=== PATIENT | male | born 1935 | race Caucasian/White ===

== ENCOUNTER → 2019-07-30 | Outpatient (CLI) | payer OTHER ==
--- NOTE | 2019-08-03 08:47 | SLEEPCENT ---
DATE OF STUDY: 07/30/2019 ORDERING PROVIDER: LIV Mattson Nocturnal polysomnography was performed for evaluation of sleep physiology in this patient with a history of excessive somnolence and nonrestorative sleep. 6 hours and 40 minutes of data were reviewed. There were 264.5 minutes of sleep identified. Sleep latency was short at 10 minutes. Rapid eye movement (REM) latency was prolonged at 205 minutes. Sleep architecture improved later in the study with application of pressure therapy. Overall sleep efficiency was 57.7%. The patient's electrocardiogram showed sinus rhythm with respiratory variability. Average heart rate 65 beats per minute. Rate ranged 40-80. Electroencephalogram (EEG) showed some mild coarsening in background. Otherwise, normal waveforms for awake and sleep. There were 191 respiratory events identified of 10 seconds in duration or greater for an apnea-hypopnea index of 43.4. Having clearly established the presence of obstructive sleep apnea syndrome early in the testing, the study was stopped shortly after 1:00 a.m. for the application of pressure therapy. The patient was fit with a Kurtosys Simplus full-face mask of medium size. 4 cm of water pressure were applied to the circuit, and the lights were again extinguished. Throughout the remaining hours of testing, pressure titration was performed. Best sleep was seen on a continuous positive airway pressure (CPAP) pressure of 11; however, hypopneic events and oxygen desaturations persisted, and an optimal pressure was not able to be identified during this study. IMPRESSION: Obstructive sleep apnea syndrome (G47.33). Apnea-hypopnea index 43.3. RECOMMENDATION: The patient should be encouraged to return to the sleep disorder center for pressure therapy. Attempts to titrate pressure therapy during this study were insufficient to identify an optimal pressure. In the interim, alcohol and sedative avoidance should be practiced and caution exercised during the operation of motor vehicles.
== END ==
LOC: M SLEEP 20:00
PROVIDERS: ATTEND Nurse Practitioner Family
DX: R06.83 Snoring (principal)

== ENCOUNTER → 2019-09-05 | Outpatient (CLI) | payer OTHER ==
--- NOTE | 2019-09-13 10:49 | SLEEPCENT ---
DATE OF STUDY: 09/05/2019 ORDERED: Khushbu Boston Nocturnal polysomnography was performed for a full night of pressure titration in this patient with severe obstructive sleep apnea syndrome. For testing, a Swoop Simplus full-face mask of medium size was used and 5 cm of water pressure was initially applied to the circuit and the lights were extinguished. 7 hours and 42 minutes of data were reviewed. There were 328 minutes of sleep identified. Sleep latency was prolonged at 20 minutes. REM latency was prolonged at 162 minutes. Sleep architecture improved in the second portion of the study. There were 3 REM cycles noted. Overall sleep efficiency was 71.9%. The patient's electrocardiogram showed a sinus rhythm with an average heart rate of 54 beats per minute. Electroencephalogram (EEG) showed reasonably normal waveforms for awake and sleep. Respiratory events were seen late in the study in REM complicating titration. Nonetheless, the patient tolerated C-PAP throughout the study. Best sleep was seen on C-PAP pressure of 13 cm. IMPRESSION: Obstructive sleep apnea syndrome (G47.33). RECOMMENDATION: Nightly use of pressure therapy at 13 cm of water.
== END ==
LOC: M SLEEP 20:00
PROVIDERS: ATTEND Nurse Practitioner Family
DX: G47.33 Obstructive sleep apnea (adult) (pediatric) (principal)

== ENCOUNTER 2020-06-19 08:33 | Inpatient (IN) | payer OTHER, MEDICARE ==
[~2020-06-19] VITALS: Ht 177.8 cm; Wt 130.9 kg
--- NOTE | 2020-06-19 08:48 | ED PDOC ---
Post-Departure Follow-Up [facility]IO Accessed. Patient informed Edenilson Garrido M.D. Jun 19, 2020 08:48
[2020-06-19] MEDS ORDERED: lisinopriL 40 MG TAB PO SCH (09:00)
[2020-06-19] MEDS ORDERED: ASCO500T PO (09:13)
[2020-06-19] MEDS ORDERED: ECOT81TA5 PO (09:13)
[2020-06-19] MEDS ORDERED: FURO40TA2 PO (09:13)
[2020-06-19] MEDS ORDERED: ATOR40TA75 PO (09:13)
[2020-06-19] MEDS ORDERED: AMLO1TAB24 PO (09:13)
[2020-06-19] MEDS ORDERED: LISI40TA4 PO ×2 (09:13→11:51)
[2020-06-19] MEDS ORDERED: METF-877 PO (09:13)
[2020-06-19] MEDS ORDERED: METO200T28 PO ×2 (09:13→11:51)
[2020-06-19] MEDS ORDERED: GLIP5TAB20 PO (09:13)
[2020-06-19] MEDS ORDERED: D3 +TAB PO (09:16)
[2020-06-19] MEDS ORDERED: CALC600T85 PO (09:16)
[2020-06-19] MEDS ORDERED: CINN500C15 PO (09:19)
[2020-06-19] MEDS ORDERED: amLODIPine 5 MG TAB PO ONE (09:30)
[2020-06-19] MEDS ORDERED: FUROSEMIDE 40 MG TAB PO ONE (09:35)
[2020-06-19] MEDS ORDERED: METOPROLOL SUCC (TopROL XL) 100MG *XL* TAB PO ONE (09:35)
--- NOTE | 2020-06-19 09:37 | REP ---
INDICATION: DYSPNEA/COUGH COMPARISON: None. TECHNIQUE: Portable AP view of the chest FINDINGS: Diffuse bilateral airspace disease including possible forming area of consolidation in the left mid lung zone. No obvious effusion. No definite pneumothorax. Cardiomegaly noted. IMPRESSION: Moderate to significant bilateral airspace disease consistent with multifocal pneumonia. <Electronically signed by Dex Benitez > 06/19/20 [id number]
[2020-06-19 09:40] LABS: BASO % 0.2 % (0.0-1.0); EOS % 0.1 % (0.0-3.0); HEMATOCRIT 35.1 % (42.0-52.0); HEMOGLOBIN 10.8 g/dl (13.5-17.5); LYMPH # 0.4 10^3/uL (1.5-5.0); LYMPH % 3.4 % (24.0-44.0); MEAN CORPUSCULAR HEMOGLOBIN 27.6 pg (27.0-33.0); MEAN CORPUSCULAR HGB CONC 30.8 g/dl (32.0-36.5); MEAN CORPUSCULAR VOLUME 89.5 fl (80.0-96.0); MONO # 0.7 10^3/uL (0.0-0.8); MONO % 6.1 % (2.0-8.0); NEUTROPHILS # 10.9 10^3/uL (1.5-8.5); NEUTROPHILS % 89.5 % (36.0-66.0); PLATELET COUNT, AUTOMATED 163 10^3/uL (150-450); RED BLOOD COUNT 3.92 10^6/uL (4.30-6.10); WHITE BLOOD COUNT 12.2 10^3/uL (4.0-10.0)
[2020-06-19] MEDS ORDERED: FUROSEMIDE 40MG/4ML VIAL (J1940) IV ONE (09:40)
[2020-06-19 10:07] LABS: CALCIUM LEVEL 8.5 MG/DL (8.8-10.2); CREATININE FOR GFR 2.49 MG/DL (0.70-1.30); GLOMERULAR FILTRATION RATE 26.6 (>35); POTASSIUM SERUM 5.4 MEQ/L (3.5-5.1)
--- NOTE | 2020-06-19 10:51 | REP ---
INDICATION: CHF vs multifocal pn COMPARISON: None TECHNIQUE: Axial noncontrast images from the thoracic inlet to the upper abdomen with coronal and sagittal reformations. This CT examination was performed using the following dose reduction techniques: Automated exposure control, adjustment of mA and/or kv according to the patient's size, and use of iterative reconstruction technique. FINDINGS: Moderate to significant bilateral multifocal infiltrates along with suspected reactive adenopathy and small bilateral pleural effusions. Findings most compatible with multifocal pneumonia. Atherosclerotic changes to the thoracic aorta and coronary arteries noted without aortic aneurysm. Cardiac silhouette is upper limits of normal. Skeletal structures are intact. IMPRESSION: Findings compatible with multifocal pneumonia including reactive adenopathy and small pleural effusions. <Electronically signed by Dex Benitez > 06/19/20 [id number]
[2020-06-19] MEDS ORDERED: cefTRIAXone SOD 2 GM in D5W MINI-BAG PLUS 50 ML IV ONE (11:15)
[2020-06-19] MEDS ORDERED: AZITHROMYCIN INJ 500 MG, VIAL MATE ADAPTER 1 EACH in NS 250 ML IV ONE (11:15)
[2020-06-19] MEDS ORDERED: CALC600T86 PO (11:51)
[2020-06-19] MEDS ORDERED: KETO2CR TOP (11:51)
[2020-06-19] MEDS ORDERED: D-40TAB2 PO (11:51)
[2020-06-19] MEDS ORDERED: VITMTA PO (11:51)
[2020-06-19] MEDS ORDERED: ASCO250T20 PO (11:51)
[2020-06-19] MEDS ORDERED: AMLO1TAB25 PO (11:51)
[2020-06-19] MEDS ORDERED: GLIP5TAB8 PO (11:51)
[2020-06-19] MEDS ORDERED: VITA500T41 PO (11:51)
[2020-06-19] MEDS ORDERED: CO-E200C PO (11:51)
[2020-06-19] MEDS ORDERED: FURO20TA2 PO ×2 (11:51)
[2020-06-19] MEDS ORDERED: ASPI81TA26 PO (11:51)
[2020-06-19] MEDS ORDERED: METF10004 PO (11:51)
[2020-06-19] MEDS ORDERED: VITATAB73 PO (11:51)
[2020-06-19] MEDS ORDERED: FISH1000 PO (11:51)
[2020-06-19] MEDS ORDERED: FERR1TAB8 PO (11:51)
[2020-06-19] MEDS ORDERED: SPIR-10 PO (11:51)
[2020-06-19] MEDS ORDERED: CINN500C2 PO (11:51)
[2020-06-19] MEDS ORDERED: ATOR80TA59 PO (11:51)
[2020-06-19] MEDS ORDERED: ACETAMINOPHEN TAB 650MG DOSE (2X325MG) PO PRN (12:40)
[2020-06-19] MEDS ORDERED: ALBUTEROL 90 MCG/ACT 8GM HFA INHALER INH PRN (12:40)
[2020-06-19] MEDS ORDERED: DEXTROSE 50% 50 ML SYRINGE IV PRN (13:00)
[2020-06-19] MEDS ORDERED: GLUCOSE 4GM CHEW TABLET PO PRN (13:00)
[2020-06-19] MEDS ORDERED: GLUCAGON INJ 1MG VIAL SC PRN (13:00)
[2020-06-19 13:33] VITALS: BP 102/87
--- NOTE | 2020-06-19 13:50 | HPEPDOC ---
General Date of Admission Jun 19, 2020 at 12:38 Date of Service: Jun 19, 2020 Chief Complaint The patient is a 84-year-old male admitted with a reason for visit of Acute Exacerbation Of Chf. Source: Patient Exam Limitations: No limitations Timing/Duration: Day(s) Severity: Moderate History of Present Illness Patient is 84 years old male with past medical history of morbid obesity, sleep apnea, hypertension, hyperlipidemia, MT with 1 stent placement around 10 years ago, coronary artery diseases, diabetes type 2 presented to the hospital with deconditioning and shortness of breath. Patient stated that in the morning he sliding down from his recliner and was not able to stand up. He called EMS, when EMS arrived patient was found to have oxygen saturation of 70s. Also patient stated that he has been having increased shortness of breath for past few weeks associated with decreased mobility and generalized weakness. He stated that minimal physical activity gives him shortness of breath and most of the day he needs to stay on the recliner. Patient complains of orthopnea, leg swelling and dyspnea. Also he noticed that he has been having intermittent cough for past few days with yellowish sputum production. In ER patient was found to have ABG showed pH 7.2, oxygen 65 and CO2 47.4. White blood count of 12.2, hemoglobin 10.8, potassium 5.4, creatinine 2.4, BNP 1962. CT chest showed Findings compatible with multifocal pneumonia including reactive adenopathy and small pleural effusions. Home Medications Scheduled Amlodipine Besylate (Amlodipine Besylate) 10 Mg Tablet, 5 MG PO DAILY, (Reported) Ascorbic Acid (Vitamin C) 250 Mg Tablet, 250 MG PO DAILY, (Reported) Aspirin (Aspirin EC) 81 Mg Tablet.dr, 81 MG PO DAILY, (Reported) Atorvastatin Calcium (Atorvastatin Calcium) 80 Mg Tablet, 40 MG PO DAILY, (Reported) Calcium Carbonate (Calcium Carbonate) 600 Mg Tablet, 1,200 MG PO DAILY, (Reported) Cholecalciferol (Vitamin D3) (Vitamin D-400) 10 Mcg Tablet, 10 MCG PO DAILY, (Reported) Cinnamon Bark (Cinnamon) 500 Mg Capsule, 500 MG PO DAILY, (Reported) Cyanocobalamin (Vitamin B-12) (Vitamin B-12) 500 Mcg Tablet, 500 MCG PO DAILY, (Reported) Ferrous Sulfate (Ferrous Sulfate) 325 Mg Tablet, 325 MG PO DAILY, (Reported) Furosemide (Furosemide) 20 Mg Tablet, 20 MG PO QAM, (Reported) Furosemide (Furosemide) 20 Mg Tablet, 10 MG PO QPM, (Reported) Glipizide (Glipizide) 5 Mg Tablet, 5 MG PO DAILY, (Reported) Ketoconazole (Ketoconazole) 15 Gm Cream..g., 1 APLCT TOP DAILY, (Reported) APPLY TO LEGS/FEET Lisinopril (Lisinopril) 40 Mg Tablet, 40 MG PO DAILY, (Reported) Metformin HCl (Metformin HCl) 1,000 Mg Tablet, 1,000 MG PO BID, (Reported) Metoprolol Succinate (Metoprolol Succinate) 200 Mg Tab.er.24h, 100 MG PO DAILY, (Reported) Multivitamins (Thera M Plus Tablet) 1 Each Tablet, 1 TAB PO DAILY, (Reported) Downing-3 Fatty Acids/Fish Oil (Fish Oil 1,000 mg Capsule) 1 Each Capsule, 1,000 MG PO DAILY, (Reported) Spironolactone (Spironolactone) 25 Mg Tablet, 25 MG PO DAILY, (Reported) Ubidecarenone (Coenzyme Q10) 200 Mg Capsule, 200 MG PO DAILY, (Reported) Vitamin B Complex (Vitamin B Complex) 1 Each Tablet, 1 TAB PO DAILY, (Reported) Allergies Coded Allergies: No Known Drug Allergies (Verified Allergy, Unknown, 06/19/20) Past Medical History Medical History morbid obesity, sleep apnea, hypertension, hyperlipidemia, MT with 1 stent placement around 10 years ago, coronary artery diseases, diabetes type 2 Family History I personally reviewed family history and found not pertinent Social History * Smoker: former Smoker Alcohol: Denies Drugs: denies A-FIB/CHADSVASC A-FIB History Current/History of A-Fib/PAF?: No Current PO Anticoag Therapy: No Review of Systems Constitutional: Reports: Weakness Eyes: Denies: Pain ENT: Denies: Head Aches Skin: Reports: Breakdown (distal legs) Pulmonary: Reports: Dyspnea Cardiovascular: Reports: Orthopnea, Edema; Denies: Chest Pain, Palpitations Gastrointestinal: Denies: Nausea, Vomiting Genitourinary: Denies: Dysuria Hematologic: Denies: Bruising, Bleeding Excessively Endocrine: Denies: Polydipsia, Polyphagia Musculoskeletal: Denies: Neck Pain, Back Pain Neurological: Denies: Weakness, Numbness Psych: Reports: Mood Normal Physical Examination General Exam: Positive: Alert, Cooperative Eye Exam: Positive: PERRLA ENT Exam: Positive: Atraumatic Neck Exam: Positive: Supple, JVD Chest Exam: Positive: Rales, Wheezing Heart Exam: Positive: Rate Normal Telemetry: Positive: No significant arrhythmia Abdomen Exam: Positive: Normal bowel sounds Extremity Exam: Positive: Edema, Swelling Skin Exam: Positive: Breakdown (skin changes consistent with chronic venous stasis) Neuro Exam: Positive: Cranial Nerves 3-12 NL Psych Exam: Positive: Mental status NL Vital Signs Vital Signs Date Time Temp Pulse Resp B/P (MAP) Pulse Ox O2 Delivery O2 Flow Rate FiO2 06/19/20 12:00 57 20 162/67 (98) 93 Nasal Cannula 2.0 06/19/20 08:59 97.4 Laboratory Data Labs 24H Laboratory Tests 2 06/19/20 08:57: Immature Granulocyte % (Auto) 0.7, Neutrophils (%) (Auto) 89.5H, Lymphocytes (%) (Auto) 3.4L, Monocytes (%) (Auto) 6.1, Eosinophils (%) (Auto) 0.1, Basophils (%) (Auto) 0.2, Neutrophils # (Auto) 10.9H, Lymphocytes # (Auto) 0.4L, Monocytes # (Auto) 0.7, Eosinophils # (Auto) 0.0, Basophils # (Auto) 0.0, Nucleated Red Blood Cells % (auto) 0.0, Anion Gap 9, Glomerular Filtration Rate 26.6L, Calcium Level 8.5L, Total Creatine Kinase 374H, YH-Jpy-E-Type Natriuretic Peptide 1962H 06/19/20 09:07: POC pH (Misc Panel) 7.259L, POC Base Excess (Misc Panel) -5.0L, POC Saturated Percent O2 (Misc) 90L, POC pO2 (Misc Panel) 69.0L, POC pCO2 (Misc Panel) 48.7H, POC HCO3 (Misc Panel) 21.8L, POC Total CO2 (Misc Panel) 23.0 06/19/20 09:25: POC Troponin I (Misc) 0.02 06/19/20 10:11: POC pH (Misc Panel) 7.286L, POC Base Excess (Misc Panel) -4.0L, POC Saturated Percent O2 (Misc) 89L, POC pO2 (Misc Panel) 65.0L, POC pCO2 (Misc Panel) 47.4H, POC HCO3 (Misc Panel) 22.6, POC Total CO2 (Misc Panel) 24.0 06/19/20 11:28: POC Lactate (Misc Panel) 0.98 CBC/BMP Laboratory Tests 06/19/20 08:57 Microbiology Microbiology 06/19/20 Respiratory Virus Panel (PCR) (LUISITO) - Final, Complete 06/19/20 Blood Culture, Received Pending 06/19/20 Blood Culture, Received Pending Assessment/Plan Patient is 84 years old male with past medical history of morbid obesity, sleep apnea, hypertension, hyperlipidemia, MT with 1 stent placement around 10 years ago, coronary artery diseases, diabetes type 2 presented to the hospital with deconditioning and shortness of breath. Patient stated that in the morning he sliding down from his recliner and was not able to stand up. He called EMS, when EMS arrived patient was found to have oxygen saturation of 70s. Also patient stated that he has been having increased shortness of breath for past few weeks associated with decreased mobility and generalized weakness. He stated that minimal physical activity gives him shortness of breath and most of the day he needs to stay on the recliner. Patient complains of orthopnea, leg swelling and dyspnea. Also he noticed that he has been having intermittent cough for past few days with yellowish sputum production. In ER patient was found to have ABG showed pH 7.2, oxygen 65 and CO2 47.4. White blood count of 12.2, hemoglobin 10.8, potassium 5.4, creatinine 2.4, BNP 1962. CT chest showed Findings compatible with multifocal pneumonia including reactive adenopathy and small pleural effusions. Problems (1) Acute respiratory failure with hypoxia Status: Acute Problem Text: Multifactorial. Most likely secondary to acute CHF superimposed with bilateral multifocal pneumonia Oxygen supplementation Incentive spirometry Continue to monitor blood gas (2) Acute exacerbation of CHF (congestive heart failure) Status: Acute Problem Text: Patient developed orthopnea, increased leg swelling, dyspnea, plus JVD, elevated BNP Will check echo Lasix IV Continue to monitor BMP I's and O's Salt restriction (3) CAP (community acquired pneumonia) Status: Acute Problem Text: Patient developed intermittent cough with yellowish sputum production CT chest showed Findings compatible with multifocal pneumonia including reactive adenopathy and small pleural effusions. I started levofloxacin IV Incentive spirometry Inhalers (4) Hyperkalemia Status: Acute Problem Text: We will continue to monitor BMP Most likely K will be stabilized after diuresis with Lasix (5) Diabetes mellitus Status: Chronic Problem Text: Diabetes diet Patient did not use insulin as home regimen Insulin sliding scale HbA1c (6) Hyperlipidemia Status: Chronic Problem Text: continue statin (7) Hypertension Status: Chronic Problem Text: continue home cardioprotective meds Plan / VTE VTE Prophylaxis Ordered?: Yes KEVIN HERNÁNDEZ DO Jun 19, 2020 13:49
[2020-06-19 14:00] VITALS: BP 111/84
[2020-06-19] MEDS: HumaLOG INSULIN (NovoLOG) PER UNIT SC SCH ×4 (14:58→21:00)
[2020-06-19 16:23] LABS: HEMOGLOBIN A1c 5.6 %
[2020-06-19 16:48] LABS: CALCIUM LEVEL 8.7 MG/DL (8.8-10.2); CREATININE FOR GFR 2.41 MG/DL (0.70-1.30); GLOMERULAR FILTRATION RATE 27.6 (>35); POTASSIUM SERUM 5.2 MEQ/L (3.5-5.1)
[2020-06-19] MEDS: ASCORBIC ACID 250 MG TAB PO SCH (17:30)
[2020-06-19] MEDS: CYANOCOBALAMIN 500 MCG TAB PO SCH (17:30)
[2020-06-19] MEDS: ATORVASTATIN 20 MG TAB PO SCH (17:30)
[2020-06-19] MEDS: ASPIRIN 81MG ENTERIC TABLET PO SCH (17:30)
[2020-06-19] MEDS: SPIRONOLACTONE 25 MG TAB PO SCH (17:30)
[2020-06-19] MEDS: FERROUS SULFATE 325MG TAB PO SCH (17:30)
[2020-06-19] MEDS: LevoFLOXacin IV 750 MG in IV 1 EA IV SCH (17:31)
[2020-06-19] MEDS: FUROSEMIDE 40MG/4ML VIAL (J1940) IV SCH ×2 (17:32→23:55)
[2020-06-19] MEDS: ENOXAPARIN 40MG/0.4ML SYRINGE (J1650 PER 10MG) SC SCH (17:33)
[2020-06-19] MEDS: KETOCONAZOLE 2% CREAM TOP SCH (17:33)
[2020-06-19] MEDS: IPRATROPIUM 0.5MG/ALBUTEROL 2.5MG INH SOL UD 3ML (DUONEB) INH SCH ×3 (19:36→23:49)
[2020-06-19 22:00] VITALS: BP 122/79
--- NOTE | 2020-06-19 22:11 | ECGEPIP ---
[facility] - ED Test Date: 2020-06-19 Pat Name: CHARY NORTH Department: Room: - Gender: Male General Labor: KARIE : 1935 Requested By: David Connors Order Number: [id number] Reading MD: Kevin Tate Measurements Intervals [place] Rate: 66 P: FL: QRS: -34 QRSD: 88 T: 8 QT: 472 QTc: 494 Interpretive Statements Accelerated Junctional rhythm LEFT AXIS DEVIATION Nonspecific ST-T wave abnormalities Prolonged QTc interval Comparison tracing not on file Extensive artifact Electronically Signed on 06-19-2020 22:11:06 EDT by Kevin Tate
[2020-06-19 23:34] LABS: CALCIUM LEVEL 8.5 MG/DL (8.8-10.2); CREATININE FOR GFR 2.25 MG/DL (0.70-1.30); GLOMERULAR FILTRATION RATE 29.9 (>35); POTASSIUM SERUM 5.5 MEQ/L (3.5-5.1)
[2020-06-20] MEDS: IPRATROPIUM 0.5MG/ALBUTEROL 2.5MG INH SOL UD 3ML (DUONEB) INH SCH ×5 (03:39→19:42)
[2020-06-20 04:46] LABS: HEMATOCRIT 30.8 % (42.0-52.0); HEMOGLOBIN 9.6 g/dl (13.5-17.5); MEAN CORPUSCULAR HEMOGLOBIN 27.6 pg (27.0-33.0); MEAN CORPUSCULAR HGB CONC 31.2 g/dl (32.0-36.5); MEAN CORPUSCULAR VOLUME 88.5 fl (80.0-96.0); PLATELET COUNT, AUTOMATED 141 10^3/uL (150-450); RED BLOOD COUNT 3.48 10^6/uL (4.30-6.10)
[2020-06-20 05:14] LABS: ALBUMIN 2.9 GM/DL (3.2-5.2); BILIRUBIN,TOTAL 1.1 MG/DL (0.2-1.0); CALCIUM LEVEL 8.2 MG/DL (8.8-10.2); CREATININE FOR GFR 2.33 MG/DL (0.70-1.30); GLOMERULAR FILTRATION RATE 28.7 (>35); MAGNESIUM LEVEL 2.3 MG/DL (1.8-2.4); POTASSIUM SERUM 4.7 MEQ/L (3.5-5.1); TOTAL PROTEIN 5.9 GM/DL (6.4-8.2)
[2020-06-20 06:00] VITALS: BP 131/53
[2020-06-20] MEDS: HumaLOG INSULIN (NovoLOG) PER UNIT SC SCH ×4 (08:11→20:47)
[2020-06-20] MEDS: FUROSEMIDE 40MG/4ML VIAL (J1940) IV SCH ×2 (08:12→17:41)
[2020-06-20] MEDS: FERROUS SULFATE 325MG TAB PO SCH (08:13)
[2020-06-20] MEDS: ASCORBIC ACID 250 MG TAB PO SCH (08:13)
[2020-06-20] MEDS: SPIRONOLACTONE 25 MG TAB PO SCH (08:13)
[2020-06-20] MEDS: CYANOCOBALAMIN 500 MCG TAB PO SCH (08:13)
[2020-06-20] MEDS: ASPIRIN 81MG ENTERIC TABLET PO SCH (08:13)
[2020-06-20] MEDS: ENOXAPARIN 40MG/0.4ML SYRINGE (J1650 PER 10MG) SC SCH (08:13)
[2020-06-20] MEDS: ATORVASTATIN 20 MG TAB PO SCH (08:13)
[2020-06-20] MEDS: METOPROLOL SUCC (TopROL XL) 100MG *XL* TAB PO SCH (08:14)
[2020-06-20] MEDS: KETOCONAZOLE 2% CREAM TOP SCH (08:14)
[2020-06-20] MEDS ORDERED: ENOXAPARIN 40MG/0.4ML SYRINGE (J1650 PER 10MG) SC SCH (09:00)
--- NOTE | 2020-06-20 09:25 | ECHO ---
DATE OF PROCEDURE: 06/19/2020 Age: 84 Gender: Male Height: 178 cm Weight: 138 kg REFERRING PHYSICIAN: Sanket Elizondo DO. INDICATION: Congestive heart failure. MEASUREMENTS: IVS 1.1 cm LV 5.6 cm LVPW 1.0 cm LA 5.0 cm Aorta 3.4 cm RV 3.9 IVC 2.4 cm FINDINGS: This study is of limited technical quality corresponding to patient's body habitus. Patient is in atrial fibrillation with controlled rate and wide QRS complex. Left ventricle is normal size. Overall probably near normal LV systolic function based on very limited views. Right ventricle was poorly visualized. There is severe biatrial enlargement. Aortic valve has three cusps. It has normal mobility. Mitral and tricuspid valves appear normal. Pulmonic valve was not well seen. No pericardial effusion is noted. Inferior vena cava is dilated but does collapse with inspiration indicative of likely mildly elevated central venous pressure. Aortic root is normal. Aortic arch and abdominal aorta were not visualized. Doppler interrogation of aortic valve reveals no stenosis and trivial insufficiency. There is also trace mitral insufficiency. No significant tricuspid insufficiency is seen. Evaluation of diastolic function is inconclusive due to underlying atrial fibrillation. CONCLUSIONS: 1. Study is of limited technical quality corresponding to patient's body habitus, underlying atrial fibrillation with controlled rate, and wide QRS complex. 2. Normal LV size with probably normal LV systolic function based on limited views. 3. Aortic sclerosis without significant stenosis. 4. Trace mitral insufficiency. 5. Suggestive of elevated central venous pressure but unable to estimate pulmonary artery pressure. 6. Severe biatrial enlargement. [facility]
[2020-06-20 10:34] LABS: CALCIUM LEVEL 8.9 MG/DL (8.8-10.2); CREATININE FOR GFR 2.64 MG/DL (0.70-1.30); GLOMERULAR FILTRATION RATE 24.8 (>35); POTASSIUM SERUM 4.9 MEQ/L (3.5-5.1)
[2020-06-20] MEDS ORDERED: APIXABAN 5 MG TAB (ELIQUIS) PO ONE (11:10)
--- NOTE | 2020-06-20 11:12 | IPNPDOC ---
Text Note Date of Service The patient was seen on 06/20/20. NOTE Subjective: No any acute event overnight. Patient stated that his cough became better, less intense. He continues to have up to 4 L oxygen requirements Objective: GENERAL APPEARANCE: Obese male HEENT: no scleral icterus, plus JVD, EOMI CARDIOVASCULAR: Irregularly irregular LUNGS: Diminished lung sounds bilaterally with mild wheezes ABDOMEN: soft & not tender w palpitation MUSCULOSKELETAL: +2 pitting edema INTEGUMENT: Skin changes of both lower extremities consistent with chronic venostasis NEUROLOGICAL: cranial nerve function from 2-12 intact intact, follows commands, speech not dysarthric Assessment/Plan Patient is 84 years old male with past medical history of morbid obesity, sleep apnea, hypertension, hyperlipidemia, [place] with 1 stent placement around 10 years ago, coronary artery diseases, diabetes type 2 presented to the hospital with deconditioning and shortness of breath. Patient stated that in the morning he sliding down from his recliner and was not able to stand up. He called EMS, when EMS arrived patient was found to have oxygen saturation of 70s. Also patient stated that he has been having increased shortness of breath for past few weeks associated with decreased mobility and generalized weakness. He stated that minimal physical activity gives him shortness of breath and most of the day he needs to stay on the recliner. Patient complains of orthopnea, leg swelling and dyspnea. Also he noticed that he has been having intermittent cough for past few days with yellowish sputum production. In ER patient was found to have ABG showed pH 7.2, oxygen 65 and CO2 47.4. White blood count of 12.2, hemoglobin 10.8, potassium 5.4, creatinine 2.4, BNP 1962. CT chest showed Findings compatible with multifocal pneumonia including reactive adenopathy and small pleural effusions. Problems Acute respiratory failure with hypoxia Multifactorial. Most likely secondary to acute CHF superimposed with bilateral multifocal pneumonia Oxygen supplementation Incentive spirometry Continue to monitor blood gas Acute exacerbation of CHF (congestive heart failure)/acute diastolic CHF Patient developed orthopnea, increased leg swelling, dyspnea, plus JVD, elevated BNP echo showed 1. Study is of limited technical quality corresponding to patient's body habitus, underlying atrial fibrillation with controlled rate, and wide QRS complex. 2. Normal LV size with probably normal LV systolic function based on limited views. 3. Aortic sclerosis without significant stenosis. 4. Trace mitral insufficiency. 5. Suggestive of elevated central venous pressure but unable to estimate pulmonary artery pressure. 6. Severe biatrial enlargement. Lasix IV I's and O's Salt and fluid restriction Paroxysmal atrial fibrillation started oral targeted anticoagulation Heart rate is under control CAP (community acquired pneumonia) Patient developed intermittent cough with yellowish sputum production CT chest showed Findings compatible with multifocal pneumonia including reactive adenopathy and small pleural effusions. I started levofloxacin IV, will check EKG today for QTc prolongation. Patient received azithromycin yesterday and QTc was prolonged. Also patient had hyperkalemia yesterday If patient continues to have prolongation of QTC I will change antibiotic Incentive spirometry Inhalers Hyperkalemia Resolved after diuresis Diabetes mellitus Diabetes diet Patient did not use insulin as home regimen Insulin sliding scale HbA1c 5.6 Hyperlipidemia continue statin Hypertension continue home cardioprotective meds BALJIT Prerenal, most likely secondary to intravascular depletion secondary to CHF exacerbation Continue to monitor VS,Fishbone, I+O VS, Fishbone, I+O Laboratory Tests 06/19/20 16:01 06/19/20 22:04 06/20/20 04:40 06/20/20 09:54 Vital Signs Date Time Temp Pulse Resp B/P (MAP) Pulse Ox O2 Delivery O2 Flow Rate FiO2 06/20/20 08:14 68 129/52 06/20/20 06:00 98.4 20 94 High Flow Cannula 4.0 I&O- Last 24 Hours up to 6 AM 06/20/20 06:00 Intake Total 2035 ml Output Total 3550 ml Balance -1515 ml KEVIN HERNÁNDEZ DO Jun 20, 2020 11:12
--- NOTE | 2020-06-20 17:05 | ECGEPIP ---
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 Electronically Signed on 06-20-2020 17:05:07 EDT by Kevin Huntley
[2020-06-20] MEDS: APIXABAN 5 MG TAB (ELIQUIS) PO SCH (20:14)
[2020-06-20 22:00] VITALS: BP 118/56
[2020-06-21] MEDS: IPRATROPIUM 0.5MG/ALBUTEROL 2.5MG INH SOL UD 3ML (DUONEB) INH SCH ×7 (00:03→23:53)
[2020-06-21] MEDS: FUROSEMIDE 40MG/4ML VIAL (J1940) IV SCH ×3 (00:04→18:12)
[2020-06-21 06:00] VITALS: BP 145/59
[2020-06-21] MEDS: HumaLOG INSULIN (NovoLOG) PER UNIT SC SCH ×4 (08:03→21:00)
[2020-06-21] MEDS: SPIRONOLACTONE 25 MG TAB PO SCH (08:04)
[2020-06-21] MEDS: APIXABAN 5 MG TAB (ELIQUIS) PO SCH ×2 (08:04→20:39)
[2020-06-21] MEDS: ASPIRIN 81MG ENTERIC TABLET PO SCH (08:04)
[2020-06-21] MEDS: CYANOCOBALAMIN 500 MCG TAB PO SCH (08:04)
[2020-06-21] MEDS: FERROUS SULFATE 325MG TAB PO SCH (08:05)
[2020-06-21] MEDS: ATORVASTATIN 20 MG TAB PO SCH (08:05)
[2020-06-21] MEDS: ASCORBIC ACID 250 MG TAB PO SCH (08:05)
[2020-06-21] MEDS: KETOCONAZOLE 2% CREAM TOP SCH (08:06)
[2020-06-21] MEDS: METOPROLOL SUCC (TopROL XL) 100MG *XL* TAB PO SCH (08:14)
[2020-06-21 08:37] LABS: BASO % 0.6 % (0.0-1.0); EOS # 0.2 10^3/uL (0.0-0.5); EOS % 2.4 % (0.0-3.0); HEMATOCRIT 32.1 % (42.0-52.0); HEMOGLOBIN 10.1 g/dl (13.5-17.5); LYMPH # 0.7 10^3/uL (1.5-5.0); LYMPH % 9.6 % (24.0-44.0); MEAN CORPUSCULAR HGB CONC 31.5 g/dl (32.0-36.5); MEAN CORPUSCULAR VOLUME 88.9 fl (80.0-96.0); MONO # 0.6 10^3/uL (0.0-0.8); MONO % 8.2 % (2.0-8.0); NEUTROPHILS # 5.7 10^3/uL (1.5-8.5); NEUTROPHILS % 78.8 % (36.0-66.0); PLATELET COUNT, AUTOMATED 138 10^3/uL (150-450); RED BLOOD COUNT 3.61 10^6/uL (4.30-6.10); WHITE BLOOD COUNT 7.2 10^3/uL (4.0-10.0)
[2020-06-21 09:01] LABS: ALBUMIN 3.3 GM/DL (3.2-5.2); BILIRUBIN,TOTAL 1.2 MG/DL (0.2-1.0); CALCIUM LEVEL 8.9 MG/DL (8.8-10.2); CREATININE FOR GFR 2.35 MG/DL (0.70-1.30); GLOMERULAR FILTRATION RATE 28.4 (>35); MAGNESIUM LEVEL 2.1 MG/DL (1.8-2.4); POTASSIUM SERUM 4.3 MEQ/L (3.5-5.1); TOTAL PROTEIN 6.4 GM/DL (6.4-8.2)
[2020-06-21 14:00] VITALS: BP 143/57
--- NOTE | 2020-06-21 15:05 | IPNPDOC ---
Text Note Date of Service The patient was seen on 06/21/20. NOTE Subjective: No any acute event overnight. Patient stated that his breathing i mproved. In the morning his oxygen saturation 93% on room air. Patient coughed up sputum with some harinder blood. Objective: GENERAL APPEARANCE: Obese male HEENT: no scleral icterus, plus JVD, EOMI CARDIOVASCULAR: Irregularly irregular LUNGS: Diminished lung sounds bilaterally with mild wheezes ABDOMEN: soft & not tender w palpitation MUSCULOSKELETAL: +2 pitting edema INTEGUMENT: Skin changes of both lower extremities consistent with chronic venostasis NEUROLOGICAL: cranial nerve function from 2-12 intact intact, follows commands, speech not dysarthric Assessment/Plan Patient is 84 years old male with past medical history of morbid obesity, sleep apnea, hypertension, hyperlipidemia, [place] with 1 stent placement around 10 years ago, coronary artery diseases, diabetes type 2 presented to the hospital with deconditioning and shortness of breath. Patient stated that in the morning he sliding down from his recliner and was not able to stand up. He called EMS, when EMS arrived patient was found to have oxygen saturation of 70s. Also patient stated that he has been having increased shortness of breath for past few weeks associated with decreased mobility and generalized weakness. He stated that minimal physical activity gives him shortness of breath and most of the day he needs to stay on the recliner. Patient complains of orthopnea, leg swelling and dyspnea. Also he noticed that he has been having intermittent cough for past few days with yellowish sputum production. In ER patient was found to have ABG showed pH 7.2, oxygen 65 and CO2 47.4. White blood count of 12.2, hemoglobin 10.8, potassium 5.4, creatinine 2.4, BNP 1962. CT chest showed Findings compatible with multifocal pneumonia including reactive adenopathy and small pleural effusions. Problems Acute respiratory failure with hypoxia Multifactorial. Most likely secondary to acute CHF superimposed with bilateral multifocal pneumonia Oxygen supplementation Incentive spirometry Continue to monitor blood gas Acute exacerbation of CHF (congestive heart failure)/acute diastolic CHF Patient developed orthopnea, increased leg swelling, dyspnea, plus JVD, elevated BNP echo showed 1. Study is of limited technical quality corresponding to patient's body habitus, underlying atrial fibrillation with controlled rate, and wide QRS complex. 2. Normal LV size with probably normal LV systolic function based on limited views. 3. Aortic sclerosis without significant stenosis. 4. Trace mitral insufficiency. 5. Suggestive of elevated central venous pressure but unable to estimate pulmonary artery pressure. 6. Severe biatrial enlargement. Lasix IV I's and O's Salt and fluid restriction. Patient developed good urine output. His weight since admission decreased from 139 kg to 132 kg Paroxysmal atrial fibrillation started oral targeted anticoagulation Heart rate is under control CAP (community acquired pneumonia) Patient developed intermittent cough with yellowish sputum production CT chest showed Findings compatible with multifocal pneumonia including reactive adenopathy and small pleural effusions. I started levofloxacin IV, will check EKG today for QTc prolongation. Patient received azithromycin yesterday and QTc was prolonged. Also patient had hyperkalemia yesterday Repeated EKG showed improvement and QTc prolongation. We'll send sputum for cytology and culture Leukocytosis improved today Incentive spirometry Inhalers Hyperkalemia Resolved after diuresis Diabetes mellitus Diabetes diet Patient did not use insulin as home regimen Insulin sliding scale HbA1c 5.6 Hyperlipidemia continue statin Hypertension Blood pressures under control continue home cardioprotective meds BALJIT Prerenal, most likely secondary to intravascular depletion secondary to CHF exacerbation Continue to monitor Improved today VS,Joe, I+O VS, Joe, I+O Laboratory Tests 06/21/20 08:12 Vital Signs Date Time Temp Pulse Resp B/P (MAP) Pulse Ox O2 Delivery O2 Flow Rate FiO2 06/21/20 11:00 18 06/21/20 10:04 69 93 Room Air 06/21/20 08:14 145/59 06/21/20 06:00 98.0 06/20/20 21:01 3.0 I&O- Last 24 Hours up to 6 AM 06/21/20 06:00 Intake Total 1470 ml Output Total 3300 ml Balance -1830 ml KEVNI HERNÁNDEZ DO Jun 21, 2020 15:05
[2020-06-21] MEDS: LevoFLOXacin IV 750 MG in IV 1 EA IV SCH (18:11)
[2020-06-21 22:00] VITALS: BP 143/58
[2020-06-22] MEDS: FUROSEMIDE 40MG/4ML VIAL (J1940) IV SCH ×3 (00:20→16:20)
[2020-06-22] MEDS: IPRATROPIUM 0.5MG/ALBUTEROL 2.5MG INH SOL UD 3ML (DUONEB) INH SCH ×6 (03:25→23:10)
[2020-06-22 05:58] LABS: BASO # 0.1 10^3/uL (0.0-0.2); BASO % 0.7 % (0.0-1.0); EOS # 0.2 10^3/uL (0.0-0.5); EOS % 3.3 % (0.0-3.0); HEMATOCRIT 31.9 % (42.0-52.0); HEMOGLOBIN 10.2 g/dl (13.5-17.5); LYMPH % 13.6 % (24.0-44.0); MEAN CORPUSCULAR HEMOGLOBIN 28.2 pg (27.0-33.0); MEAN CORPUSCULAR VOLUME 88.1 fl (80.0-96.0); MONO # 0.9 10^3/uL (0.0-0.8); MONO % 12.2 % (2.0-8.0); NEUTROPHILS # 4.9 10^3/uL (1.5-8.5); NEUTROPHILS % 69.6 % (36.0-66.0); PLATELET COUNT, AUTOMATED 154 10^3/uL (150-450); RED BLOOD COUNT 3.62 10^6/uL (4.30-6.10); WHITE BLOOD COUNT 7.1 10^3/uL (4.0-10.0)
[2020-06-22 06:00] VITALS: BP 138/58
[2020-06-22 06:25] LABS: ALBUMIN 3.2 GM/DL (3.2-5.2); BILIRUBIN,TOTAL 1.2 MG/DL (0.2-1.0); CREATININE FOR GFR 2.37 MG/DL (0.70-1.30); GLOMERULAR FILTRATION RATE 28.1 (>35); MAGNESIUM LEVEL 1.9 MG/DL (1.8-2.4); POTASSIUM SERUM 3.9 MEQ/L (3.5-5.1)
[2020-06-22] MEDS: HumaLOG INSULIN (NovoLOG) PER UNIT SC SCH ×4 (08:12→21:00)
[2020-06-22] MEDS: ASCORBIC ACID 250 MG TAB PO SCH (08:13)
[2020-06-22] MEDS: METOPROLOL SUCC (TopROL XL) 100MG *XL* TAB PO SCH (08:13)
[2020-06-22] MEDS: ASPIRIN 81MG ENTERIC TABLET PO SCH (08:13)
[2020-06-22] MEDS: CYANOCOBALAMIN 500 MCG TAB PO SCH (08:13)
[2020-06-22] MEDS: APIXABAN 5 MG TAB (ELIQUIS) PO SCH ×2 (08:13→20:39)
[2020-06-22] MEDS: ATORVASTATIN 20 MG TAB PO SCH (08:13)
[2020-06-22] MEDS: FERROUS SULFATE 325MG TAB PO SCH (08:14)
[2020-06-22] MEDS: SPIRONOLACTONE 25 MG TAB PO SCH (08:14)
[2020-06-22] MEDS: KETOCONAZOLE 2% CREAM TOP SCH (08:14)
[2020-06-22 14:00] VITALS: BP 121/55
--- NOTE | 2020-06-22 14:05 | IPNPDOC ---
Text Note Date of Service The patient was seen on 06/22/20. NOTE Subjective: No any acute event overnight. Patient developed good progress in physical therapy. Patient denies fever, chills, nausea, vomiting, chest pain or palpitations Objective: GENERAL APPEARANCE: Obese male HEENT: no scleral icterus, plus JVD, EOMI CARDIOVASCULAR: Irregularly irregular LUNGS: Diminished lung sounds bilaterally with mild wheezes ABDOMEN: soft & not tender w palpitation MUSCULOSKELETAL: +2 pitting edema INTEGUMENT: Skin changes of both lower extremities consistent with chronic venostasis NEUROLOGICAL: cranial nerve function from 2-12 intact intact, follows commands, speech not dysarthric Assessment/Plan Patient is 84 years old male with past medical history of morbid obesity, sleep apnea, hypertension, hyperlipidemia, [place] with 1 stent placement around 10 years ago, coronary artery diseases, diabetes type 2 presented to the hospital with deconditioning and shortness of breath. Patient stated that in the morning he sliding down from his recliner and was not able to stand up. He called EMS, when EMS arrived patient was found to have oxygen saturation of 70s. Also patient stated that he has been having increased shortness of breath for past few weeks associated with decreased mobility and generalized weakness. He stated that minimal physical activity gives him shortness of breath and most of the day he needs to stay on the recliner. Patient complains of orthopnea, leg swelling and dyspnea. Also he noticed that he has been having intermittent cough for past few days with yellowish sputum production. In ER patient was found to have ABG showed pH 7.2, oxygen 65 and CO2 47.4. White blood count of 12.2, hemoglobin 10.8, potassium 5.4, creatinine 2.4, BNP 1962. CT chest showed Findings compatible with multifocal pneumonia including reactive adenopathy and small pleural effusions. Problems Acute respiratory failure with hypoxia Multifactorial. Most likely secondary to acute CHF superimposed with bilateral multifocal pneumonia Oxygen supplementation Incentive spirometry Resolved on 06/22/20 Acute exacerbation of CHF (congestive heart failure)/acute diastolic CHF Patient developed orthopnea, increased leg swelling, dyspnea, plus JVD, elevated BNP echo showed 1. Study is of limited technical quality corresponding to patient's body habitus, underlying atrial fibrillation with controlled rate, and wide QRS complex. 2. Normal LV size with probably normal LV systolic function based on limited views. 3. Aortic sclerosis without significant stenosis. 4. Trace mitral insufficiency. 5. Suggestive of elevated central venous pressure but unable to estimate pulmonary artery pressure. 6. Severe biatrial enlargement. Lasix IV I's and O's Salt and fluid restriction. Patient developed good urine output. His weight since admission decreased from 139 kg to 132 kg Paroxysmal atrial fibrillation started oral targeted anticoagulation Heart rate is under control CAP (community acquired pneumonia) Patient developed intermittent cough with yellowish sputum production CT chest showed Findings compatible with multifocal pneumonia including reactive adenopathy and small pleural effusions. I started levofloxacin IV, Repeated EKG showed improvement and QTc prolongation. sputum for cytology negative for malignancy Leukocytosis resolved Incentive spirometry Inhalers Hyperkalemia Resolved after diuresis Diabetes mellitus Diabetes diet Patient did not use insulin as home regimen Insulin sliding scale HbA1c 5.6 Hyperlipidemia continue statin Hypertension Blood pressures under control continue home cardioprotective meds BALJIT Prerenal, most likely secondary to intravascular depletion secondary to CHF exac erbation Continue to monitor VS,Fishbone, I+O VS, Fishbone, I+O Laboratory Tests 06/22/20 05:35 Vital Signs Date Time Temp Pulse Resp B/P (MAP) Pulse Ox O2 Delivery O2 Flow Rate FiO2 06/22/20 08:14 80 118/88 06/22/20 06:00 98.3 18 96 High Flow Cannula 1.0 I&O- Last 24 Hours up to 6 AM 06/22/20 06:00 Intake Total 1000 ml Output Total 3425 ml Balance -2425 ml KEVIN HERNÁNDEZ DO Jun 22, 2020 14:05
[2020-06-22 22:00] VITALS: BP 140/86
[2020-06-23] MEDS: FUROSEMIDE 40MG/4ML VIAL (J1940) IV SCH ×2 (01:16→08:29)
[2020-06-23] MEDS: IPRATROPIUM 0.5MG/ALBUTEROL 2.5MG INH SOL UD 3ML (DUONEB) INH SCH ×2 (03:46→07:37)
[2020-06-23 06:00] VITALS: BP 136/74
[2020-06-23 06:07] LABS: BASO # 0.1 10^3/uL (0.0-0.2); BASO % 0.8 % (0.0-1.0); EOS # 0.4 10^3/uL (0.0-0.5); EOS % 5.3 % (0.0-3.0); HEMATOCRIT 33.3 % (42.0-52.0); HEMOGLOBIN 10.3 g/dl (13.5-17.5); LYMPH # 1.1 10^3/uL (1.5-5.0); MEAN CORPUSCULAR HEMOGLOBIN 27.1 pg (27.0-33.0); MEAN CORPUSCULAR HGB CONC 30.9 g/dl (32.0-36.5); MEAN CORPUSCULAR VOLUME 87.6 fl (80.0-96.0); NEUTROPHILS # 4.1 10^3/uL (1.5-8.5); NEUTROPHILS % 62.4 % (36.0-66.0); PLATELET COUNT, AUTOMATED 163 10^3/uL (150-450); WHITE BLOOD COUNT 6.6 10^3/uL (4.0-10.0)
[2020-06-23 06:34] LABS: ALBUMIN 3.3 GM/DL (3.2-5.2); BILIRUBIN,TOTAL 1.3 MG/DL (0.2-1.0); CALCIUM LEVEL 8.9 MG/DL (8.8-10.2); CREATININE FOR GFR 2.34 MG/DL (0.70-1.30); GLOMERULAR FILTRATION RATE 28.6 (>35); MAGNESIUM LEVEL 1.9 MG/DL (1.8-2.4); POTASSIUM SERUM 3.9 MEQ/L (3.5-5.1)
[2020-06-23] MEDS: HumaLOG INSULIN (NovoLOG) PER UNIT SC SCH (08:28)
[2020-06-23 08:31] VITALS: BP 115/61
[2020-06-23] MEDS: ASCORBIC ACID 250 MG TAB PO SCH (08:31)
[2020-06-23] MEDS: APIXABAN 5 MG TAB (ELIQUIS) PO SCH (08:31)
[2020-06-23] MEDS: FERROUS SULFATE 325MG TAB PO SCH (08:31)
[2020-06-23] MEDS: ATORVASTATIN 20 MG TAB PO SCH (08:31)
[2020-06-23] MEDS: CYANOCOBALAMIN 500 MCG TAB PO SCH (08:31)
[2020-06-23] MEDS: SPIRONOLACTONE 25 MG TAB PO SCH (08:31)
[2020-06-23] MEDS: ASPIRIN 81MG ENTERIC TABLET PO SCH (08:31)
[2020-06-23] MEDS: METOPROLOL SUCC (TopROL XL) 100MG *XL* TAB PO SCH (08:31)
[2020-06-23] MEDS: KETOCONAZOLE 2% CREAM TOP SCH (08:32)
[2020-06-23] MEDS ORDERED: LEVO250T12 PO (10:26)
[2020-06-23] MEDS ORDERED: ELIQ5TAB PO (10:26)
[2020-06-23] MEDS ORDERED: TORS20TA2 PO (10:27)
[2020-06-23] MEDS ORDERED: AMLO1TAB25 PO (10:27)
--- NOTE | 2020-06-23 13:30 | DS.PDOC ---
Discharge Summary General Date of Admission Jun 19, 2020 at 12:38 Date of Discharge 06/23/20 Discharge Summary PROCEDURES PERFORMED DURING STAY: [None]. ADMITTING DIAGNOSES: Acute respiratory failure with hypoxia Acute exacerbation of CHF (congestive heart failure)/acute diastolic CHF Paroxysmal atrial fibrillation CAP (community acquired pneumonia) Hyperkalemia Diabetes mellitus Hyperlipidemia Hypertension BALJIT DISCHARGE DIAGNOSES: Acute respiratory failure with hypoxia Acute exacerbation of CHF (congestive heart failure)/acute diastolic CHF Paroxysmal atrial fibrillation CAP (community acquired pneumonia) Hyperkalemia Diabetes mellitus Hyperlipidemia Hypertension BALJIT COMPLICATIONS/CHIEF COMPLAINT: Acute Exacerbation Of Chf. HISTORY OF PRESENT ILLNESS: Patient is 84 years old male with past medical history of morbid obesity, sleep apnea, hypertension, hyperlipidemia, [place] with 1 stent placement around 10 years ago, coronary artery diseases, diabetes type 2 presented to the hospital with deconditioning and shortness of breath. Patient stated that in the morning he sliding down from his recliner and was not able to stand up. He called EMS, when EMS arrived patient was found to have oxygen saturation of 70s. Also patient stated that he has been having increased shortness of breath for past few weeks associated with decreased mobility and generalized weakness. He stated that minimal physical activity gives him shortness of breath and most of the day he needs to stay on the recliner. Patient complains of orthopnea, leg swelling and dyspnea. Also he noticed that he has been having intermittent cough for past few days with yellowish sputum production. In ER patient was found to have ABG showed pH 7.2, oxygen 65 and CO2 47.4. White blood count of 12.2, hemoglobin 10.8, potassium 5.4, creatinine 2.4, BNP 1962. CT chest showed Findings compatible with multifocal pneumonia including reactive adenopathy and small pleural effusions. HOSPITAL COURSE: During hospital stay the following issues addressed Acute respiratory failure with hypoxia Multifactorial. Most likely secondary to acute CHF superimposed with bilateral multifocal pneumonia Oxygen supplementation Incentive spirometry Resolved on 06/22/20 Acute exacerbation of CHF (congestive heart failure)/acute diastolic CHF Patient developed orthopnea, increased leg swelling, dyspnea, plus JVD, elevated BNP echo showed 1. Study is of limited technical quality corresponding to patient's body habitus, underlying atrial fibrillation with controlled rate, and wide QRS complex. 2. Normal LV size with probably normal LV systolic function based on limited views. 3. Aortic sclerosis without significant stenosis. 4. Trace mitral insufficiency. 5. Suggestive of elevated central venous pressure but unable to estimate pulmonary artery pressure. 6. Severe biatrial enlargement. Patient received treatment with Lasix IV I's and O's Salt and fluid restriction. Patient developed good urine output. His weight sin ce admission decreased from 139 kg to 132 kg Paroxysmal atrial fibrillation started oral targeted anticoagulation Heart rate is under control CAP (community acquired pneumonia) Patient developed intermittent cough with yellowish sputum production CT chest showed Findings compatible with multifocal pneumonia including reactive adenopathy and small pleural effusions. Sputum cytology negative for malignancy I patient received levofloxacin IV, Hyperkalemia Resolved after diuresis Diabetes mellitus Diabetes diet Patient did not use insulin as home regimen Insulin sliding scale HbA1c 5.6 Hyperlipidemia continue statin Hypertension Blood pressures under control continue home cardioprotective meds BALJIT Prerenal, most likely secondary to intravascular depletion secondary to CHF exacerbation Continue to monitor DISCHARGE MEDICATIONS: Please see below. ALLERGIES: Please see below. PHYSICAL EXAMINATION ON DISCHARGE: VITAL SIGNS: Please see below. GENERAL APPEARANCE: Obese male HEENT: no scleral icterus, plus JVD, EOMI CARDIOVASCULAR: Irregularly irregular LUNGS: Diminished lung sounds bilaterally with mild wheezes ABDOMEN: soft & not tender w palpitation MUSCULOSKELETAL: +2 pitting edema INTEGUMENT: Skin changes of both lower extremities consistent with chronic venostasis NEUROLOGICAL: cranial nerve function from 2-12 intact intact, follows commands, speech not dysarthric LABORATORY DATA: Please see below. IMAGING: [facility] NAME: CHARY NORTH DATE OF : 1935 AGE: 84 SEX: M REPORT #: [id number] ROOM: ED TECHNOLOGIST: DOUG DOCTOR: Edenilson Garrido M.D. Ordered for Date&Time: 06/19/20 1010 cc: [~ rep ct ivnm] Service Date&Time: 06/19/20 1034 This report is in Signed status. If this report is in a DRAFT status it has not yet been reviewed by the radiologist for accuracy. Thank you for having your radiology procedures performed at [facility] [place] RADIOLOGY REPORT Date&Time printed: [~ rep prt dt last] [~ rep prt tm last] Page 2 of [address] [address] RADIOLOGY REPORT This report is in Signed status. If this report is in a DRAFT status it has not yet been reviewed by the radiologist for accuracy. Thank you for having your radiology procedures performed at [facility] RADIOLOGY REPORT Date&Time printed: [~ rep prt dt last] [~ rep prt tm last] Page 1 of 1 INDICATION: CHF vs multifocal pn COMPARISON: None TECHNIQUE: Axial noncontrast images from the thoracic inlet to the upper abdomen with coronal and sagittal reformations. This CT examination was performed using the following dose reduction techniques: Automated exposure control, adjustment of mA and/or kv according to the patient's size, and use of iterative reconstruction technique. FINDINGS: Moderate to significant bilateral multifocal infiltrates along with suspected reactive adenopathy and small bilateral pleural effusions. Findings most compatible with multifocal pneumonia. Atherosclerotic changes to the thoracic aorta and coronary arteries noted without aortic aneurysm. Cardiac silhouette is upper limits of normal. Skeletal structures are intact. IMPRESSION: Findings compatible with multifocal pneumonia including reactive adenopathy and small pleural effusions. <Electronically signed by Dex Benitez > 06/19/20 1047 DD: Dex Benitez MD 06/19/20 1046 DT: GUILLE 06/19/20 1047 DS: MADALYN 06/19/20 1046 06/19/20 1046 [~ rep ct labl] PROGNOSIS: Fair ACTIVITY: [As tolerated]. DIET: Cardiac DISPOSITION: 01 Home, Self-Care. ITEMS TO FOLLOWUP ON ON OUTPATIENT: Follow-up with leather sorter, PCP, tobacco sorter DISCHARGE CONDITION: [Stable]. TIME SPENT ON DISCHARGE: 40 minutes. Vital Signs/I&Os Vital Signs Date Time Temp Pulse Resp B/P (MAP) Pulse Ox O2 Delivery O2 Flow Rate FiO2 06/23/20 08:31 85 115/61 06/23/20 06:00 98.1 18 93 High Flow Cannula 1.0 I&O- Last 24 Hours up to 6 AM 06/23/20 05:59 Intake Total 1160 ml Output Total 1425 ml Balance -265 ml Laboratory Data Labs 24H Laboratory Tests 2 06/22/20 17:43: Bedside Glucose (Misc Panel) 115H 06/22/20 20:54: Bedside Glucose (Misc Panel) 120H 06/23/20 05:44: Immature Granulocyte % (Auto) 0.5, Neutrophils (%) (Auto) 62.4, Lymphocytes (%) (Auto) 16.0L, Monocytes (%) (Auto) 15.0H, Eosinophils (%) (Auto) 5.3H, Basophils (%) (Auto) 0.8, Neutrophils # (Auto) 4.1, Lymphocytes # (Auto) 1.1L, Monocytes # (Auto) 1.0H, Eosinophils # (Auto) 0.4, Basophils # (Auto) 0.1, Nucleated Red Blood Cells % (auto) 0.0, Anion Gap 7L, Glomerular Filtration Rate 28.6L, Calcium Level 8.9, Magnesium Level 1.9, Total Bilirubin 1.3H, Aspartate Amino Transf (AST/SGOT) 57H, Alanine Aminotransferase (ALT/SGPT) 31, Alkaline Phosphatase 53, Total Protein 7.0, Albumin 3.3, Albumin/Globulin Ratio 0.9 CBC/BMP Laboratory Tests 06/23/20 05:44 FSBS Laboratory Tests Test 06/22/20 17:43 06/22/20 20:54 Range/Units Bedside Glucose (Misc Panel) 115 120 83-110 MG/DL Microbiology Microbiology 06/21/20 Gram Stain - Final, Complete 06/21/20 Sputum Culture - Final, Complete 06/19/20 Respiratory Virus Panel (PCR) (LUISITO) - Final, Complete 06/19/20 Blood Culture - Preliminary, Resulted No Growth after 72 hours. All specime... 06/19/20 Blood Culture - Preliminary, Resulted No Growth after 72 hours. All specime... 06/19/20 Gram Stain - Final, Complete 06/19/20 Sputum Culture - Final, Complete Discharge Medications Scheduled Amlodipine Besylate (Amlodipine Besylate) 10 Mg Tablet, 10 MG PO DAILY Apixaban (Eliquis) 5 Mg Tablet, 5 MG PO BID Ascorbic Acid (Vitamin C) 250 Mg Tablet, 250 MG PO DAILY, (Reported) Aspirin (Aspirin EC) 81 Mg Tablet.dr, 81 MG PO DAILY, (Reported) Atorvastatin Calcium (Atorvastatin Calcium) 80 Mg Tablet, 40 MG PO DAILY, (Reported) Calcium Carbonate (Calcium Carbonate) 600 Mg Tablet, 1,200 MG PO DAILY, (Reported) Cholecalciferol (Vitamin D3) (Vitamin D-400) 10 Mcg Tablet, 10 MCG PO DAILY, (Reported) Cinnamon Bark (Cinnamon) 500 Mg Capsule, 500 MG PO DAILY, (Reported) Cyanocobalamin (Vitamin B-12) (Vitamin B-12) 500 Mcg Tablet, 500 MCG PO DAILY, (Reported) Ferrous Sulfate (Ferrous Sulfate) 325 Mg Tablet, 325 MG PO DAILY, (Reported) Glipizide (Glipizide) 5 Mg Tablet, 5 MG PO DAILY, (Reported) Ketoconazole (Ketoconazole) 15 Gm Cream..g., 1 APLCT TOP DAILY, (Reported) APPLY TO LEGS/FEET Levofloxacin (Levofloxacin) 250 Mg Tablet, 1 TAB PO BID Lisinopril (Lisinopril) 40 Mg Tablet, 40 MG PO DAILY, (Reported) Metformin HCl (Metformin HCl) 1,000 Mg Tablet, 1,000 MG PO BID, (Reported) Metoprolol Succinate (Metoprolol Succinate) 200 Mg Tab.er.24h, 100 MG PO DAILY, (Reported) Multivitamins (Thera M Plus Tablet) 1 Each Tablet, 1 TAB PO DAILY, (Reported) [place]-3 Fatty Acids/Fish Oil (Fish Oil 1,000 mg Capsule) 1 Each Capsule, 1,000 MG PO DAILY, (Reported) Spironolactone (Spironolactone) 25 Mg Tablet, 25 MG PO DAILY, (Reported) Torsemide (Torsemide) 20 Mg Tablet, 20 MG PO DAILY Ubidecarenone (Coenzyme Q10) 200 Mg Capsule, 200 MG PO DAILY, (Reported) Vitamin B Complex (Vitamin B Complex) 1 Each Tablet, 1 TAB PO DAILY, (Reported) Allergies Coded Allergies: No Known Drug Allergies (Verified Allergy, Unknown, 06/19/20) KEVIN HERNÁNDEZ DO Jun 23, 2020 13:30
[2020-06-24 12:16] LABS: BODY FLUID CULTURE Not indicated. (.); ORGANISM ID Not indicated. (.); SPECIMEN SOURCE Urine (.); URINE STREP PNEUMONIAE ANTIGEN Negative (Negative)
== END 2020-06-23 12:40 | disposition home or self-care (01) | DRG 193 ==
LOC: M ED 08:33 → M ED INP 12:38 → ENRESERV 12:58 → M MSPAV 13:31
PROVIDERS: ADMIT Internal Medicine; ATTEND Internal Medicine
DX: J18.9 Pneumonia, unspecified organism (principal); J96.01 Acute respiratory failure with hypoxia; I50.33 Acute on chronic diastolic (congestive) heart failure; J90 Pleural effusion, not elsewhere classified; N17.9 Acute kidney failure, unspecified; Z68.41 Body mass index [BMI] 40.0-44.9, adult; E66.01 Morbid (severe) obesity due to excess calories; G47.30 Sleep apnea, unspecified; I11.0 Hypertensive heart disease with heart failure; E78.5 Hyperlipidemia, unspecified; I25.2 Old myocardial infarction; I48.0 Paroxysmal atrial fibrillation; I25.10 Atherosclerotic heart disease of native coronary artery without angina pectoris; E11.9 Type 2 diabetes mellitus without complications; E87.5 Hyperkalemia; Z95.1 Presence of aortocoronary bypass graft; Z79.82 Long term (current) use of aspirin; Z79.84 Long term (current) use of oral hypoglycemic drugs; Z79.899 Other long term (current) drug therapy; Z87.891 Personal history of nicotine dependence

== ENCOUNTER 2020-06-30 15:02 | Inpatient (IN) | payer MEDICARE, OTHER ==
[~2020-06-30] VITALS: Ht 180.3 cm; Wt 127.0 kg
[~2020-06-30 15:02] MED LIST: AMLO1TAB24 PO; AMLO1TAB25 PO; ASCO250T20 PO; ASCO500T PO; ASPI81TA26 PO; ATOR40TA75 PO; ATOR80TA59 PO; CALC600T85 PO; CALC600T86 PO; CINN500C15 PO; CINN500C2 PO; CO-E200C PO; D-40TAB2 PO; D3 +TAB PO; ECOT81TA5 PO; ELIQ5TAB PO; FERR1TAB8 PO; FISH1000 PO; FURO20TA2 PO; FURO40TA2 PO; GLIP5TAB20 PO; GLIP5TAB8 PO; KETO2CR TOP; LEVO250T12 PO; LISI40TA4 PO; METF-877 PO; METF10004 PO; METO200T28 PO; SPIR-10 PO; TORS20TA2 PO; VITA500T41 PO; VITATAB73 PO; VITMTA PO
[2020-06-30 16:34] LABS: BASO % 0.4 % (0.0-1.0); EOS # 0.1 10^3/uL (0.0-0.5); EOS % 0.8 % (0.0-3.0); HEMATOCRIT 33.1 % (42.0-52.0); HEMOGLOBIN 10.4 g/dl (13.5-17.5); LYMPH # 0.8 10^3/uL (1.5-5.0); LYMPH % 7.9 % (24.0-44.0); MEAN CORPUSCULAR HEMOGLOBIN 27.3 pg (27.0-33.0); MEAN CORPUSCULAR HGB CONC 31.4 g/dl (32.0-36.5); MEAN CORPUSCULAR VOLUME 86.9 fl (80.0-96.0); MONO # 0.7 10^3/uL (0.0-0.8); MONO % 6.8 % (2.0-8.0); NEUTROPHILS % 83.5 % (36.0-66.0); PLATELET COUNT, AUTOMATED 147 10^3/uL (150-450); RED BLOOD COUNT 3.81 10^6/uL (4.30-6.10); WHITE BLOOD COUNT 9.6 10^3/uL (4.0-10.0)
[2020-06-30 16:57] LABS: ALBUMIN 3.8 GM/DL (3.2-5.2); BILIRUBIN,DIRECT 0.2 MG/DL (0.0-0.2); TOTAL PROTEIN 6.9 GM/DL (6.4-8.2)
[2020-06-30] MEDS ORDERED: NS 1,000 ML IV ONE (17:35)
[2020-06-30 17:48] LABS: CALCIUM LEVEL 9.4 MG/DL (8.8-10.2); CREATININE FOR GFR 5.7 MG/DL (0.70-1.30); GLOMERULAR FILTRATION RATE 10.2 (>35); POTASSIUM SERUM 5.9 MEQ/L (3.5-5.1)
--- NOTE | 2020-06-30 18:34 | REP ---
INDICATION: weakness. COMPARISON: Comparison chest x-ray is from June 19, 2020.. TECHNIQUE: Sitting AP portable chest x-ray. FINDINGS: The lungs are exposed at a somewhat lesser level of inspiration. The previously noted infiltrates have cleared. The diaphragms are not well visualized but I believe this is projectional. The radiograph is exposed at a more lordotic angle. No definite infiltrate or pleural effusion is seen. Cardiomegaly is again observed unchanged. Pulmonary vasculature is cephalized. IMPRESSION: Cardiomegaly with cephalization. No acute infiltrate. <Electronically signed by Elías Chavez > 06/30/20 [id number]
[2020-06-30] MEDS ORDERED: ELIQ5TAB PO (19:02)
[2020-06-30 19:35] LABS: RSV AMPLIFICATION NEGATIVE (NEGATIVE)
--- NOTE | 2020-06-30 19:49 | HPEPDOC ---
General Date of Admission Jun 30, 2020 at 19:31 Date of Service: Jun 30, 2020 Attending Physician: SAURABH GREEN MD Chief Complaint Hypoglycemic Event History of Present Illness This is 84 yr old M presented to [facility] due to hypoglycemic episode. He states that he has been weak and just fatigued and weak since last hospitalization. He states that due to being deconditioned and tired, he is cooking less for himself today, even though he took his morning meds (metformin and glipizide). He states that he fell asleep in his recliner and accidentally slid off of it and landed o n the floor on his butt. He denies hitting any other portions of his body and denies hitting his head. He states that the fall was not associated with dizziness or pre-syncopal events. He was on the floor for about an hour according to EMS notes, before he called his neigbhor who called EMS. When EMS assessed him at the scene, there was no injury and they assisted him back into his recliner. They took a FSBS which showed 35 and gave him oral glucose PO and a second FSBS was 30. IV access was obtained and he was then infused with 250mL of 10% dextrose with an FSBS of 93. Past medical/surgical hx: morbid obesity, sleep apnea, hypertension, hyperlipidemia, KS with 1 stent placement around 10 years ago, coronary artery diseases, diabetes type 2 Past social hx: former smoker -quit in 1969 used to smoke about 1 pack per day, denies alcohol or illicit drug use, Past family hx: noncontributory IMAGING: XR chest: with cephalization. No acute infiltrate PHYSICAL EXAM: VS: see below GENERAL: Pt is laying comfortably in bed in no acute distress HEENT: EOMI. Conjunctiva and lids normal. CARDIOVASCULAR: Regular rate and rhythm, trace to 1+ pedal edema appreciated, no JVD. displaced PMI PULMONARY: Clear to auscultation with good air movement. No wheezes, rales, or rhonchi appreciated. ABD: obese protuberant abd, No tenderness to palpation. Normoactive bowel sounds to all four quadrants. No guarding on palpation EXTREMITIES: 2+ DP pulses. chronic venous stasis with venous stasis dermatitis and healing scars, no cyanosis or clubbing MSK: ROM limited 2/2 to morbid obesity SKIN: scrape on his left elbow, no signs of bruising or hematoma or active bleeding. NEURO: No focal neurological deficits. CN II-12 preserved. Strength 3/5 throughout; sensation intact throughout ASSESSMENT AND PLAN: #Hypoglycemia -held home metformin and glipizide -will add SSI with q2h FSBS +hypoglycemic protocol -2g Na and consistent carb diet -PT/OT eval and treat #BALJIT -will order for urine na, urine osml, Furea and calculate FENA - will hold lisinopril and spironalctone and other nephrotoxic drugs #Longstanding persisient Afib with slow ventricular rate - c/w eliquis - EKG reviewed in ER - afib with rate of 48 - In the exam room, patient's HR ranged from 50s to 130s - will c/w home metoprolol and will monitor HR closely. Will place hold parameters for hold when HR drops <60 #Essential HTN - c/w home meds #Chronic HFpEF - Per ECHO from 06/19/20 - not in decompensated state - held torsemide due to Cr bump - am team consider consulting nephrology as needed #Chronic CAD -has a hx of KS s/p stent - c/w home meds #ZEE -pt is non-compliant w CPAP #HLD - c/w home meds # Obesity -BMI 39 -complicates care DVT ppx: n/a on eliquis Code status: Full Home Medications Scheduled Amlodipine Besylate (Amlodipine Besylate) 10 Mg Tablet, 10 MG PO DAILY Apixaban (Eliquis) 5 Mg Tablet, 5 MG PO BID, (Reported) PT STATES HAS NOT STARTED YET (WAITING FOR [facility]) Ascorbic Acid (Vitamin C) 250 Mg Tablet, 250 MG PO DAILY, (Reported) Aspirin (Aspirin EC) 81 Mg Tablet.dr, 81 MG PO DAILY, (Reported) Atorvastatin Calcium (Atorvastatin Calcium) 80 Mg Tablet, 40 MG PO DAILY, (Reported) Calcium Carbonate (Calcium Carbonate) 600 Mg Tablet, 600 MG PO DAILY, (Reported) Cholecalciferol (Vitamin D3) (Vitamin D-400) 10 Mcg Tablet, 10 MCG PO DAILY, (Reported) Cinnamon Bark (Cinnamon) 500 Mg Capsule, 500 MG PO DAILY, (Reported) Cyanocobalamin (Vitamin B-12) (Vitamin B-12) 500 Mcg Tablet, 500 MCG PO DAILY, (Reported) Ferrous Sulfate (Ferrous Sulfate) 325 Mg Tablet, 325 MG PO DAILY, (Reported) Finasteride (Finasteride) 5 Mg Tablet, 5 MG PO QHS Glipizide (Glipizide) 5 Mg Tablet, 5 MG PO DAILY, (Reported) Metoprolol Succinate (Metoprolol Succinate) 25 Mg Tab.er.24h, 75 MG PO DAILY Multivitamins (Thera M Plus Tablet) 1 Each Tablet, 1 TAB PO DAILY, (Reported) Conway-3 Fatty Acids/Fish Oil (Fish Oil 1,000 mg Capsule) 1 Each Capsule, 1,000 MG PO DAILY, (Reported) Spironolactone (Spironolactone) 25 Mg Tablet, 25 MG PO DAILY, (Reported) Tamsulosin HCl (Flomax) 0.4 Mg Capsule, 0.4 MG PO QHS Torsemide (Torsemide) 10 Mg Tablet, 10 MG PO DAILY Ubidecarenone (Coenzyme Q10) 200 Mg Capsule, 200 MG PO DAILY, (Reported) Vitamin B Complex (Vitamin B Complex) 1 Each Tablet, 1 TAB PO DAILY, (Reported) Allergies Coded Allergies: No Known Drug Allergies (Verified Allergy, Unknown, 06/19/20) A-FIB/CHADSVASC A-FIB History Current/History of A-Fib/PAF?: No Current PO Anticoag Therapy: Yes Vital Signs Vital Signs Date Time Temp Pulse Resp B/P (MAP) Pulse Ox O2 Delivery O2 Flow Rate FiO2 06/30/20 18:17 56 18 98 Room Air 06/30/20 18:16 163/72 (102) 06/30/20 15:15 96.8 Laboratory Data Labs 24H Laboratory Tests 2 06/30/20 16:21: Immature Granulocyte % (Auto) 0.6, Neutrophils (%) (Auto) 83.5H, Lymphocytes (%) (Auto) 7.9L, Monocytes (%) (Auto) 6.8, Eosinophils (%) (Auto) 0.8, Basophils (%) (Auto) 0.4, Neutrophils # (Auto) 8.0, Lymphocytes # (Auto) 0.8L, Monocytes # (Auto) 0.7, Eosinophils # (Auto) 0.1, Basophils # (Auto) 0.0, Nucleated Red Blood Cells % (auto) 0.0, Anion Gap 9, Glomerular Filtration Rate 10.2L, Calcium Level 9.4, Total Bilirubin 1.0, Direct Bilirubin 0.2, Aspartate Amino Transf (AST/SGOT) 23, Alanine Aminotransferase (ALT/SGPT) 26, Alkaline Phosphatase 51, Total Protein 6.9, Albumin 3.8, Albumin/Globulin Ratio 1.2, Lipase 607H 06/30/20 16:22: POC Glucose (Misc Panel) 98, POC Sodium (Misc Panel) 134L, POC Potassium (Misc Panel) 5.8H, POC Chloride (Misc Panel) 101, POC Total CO2 (Misc Panel) 24.0, POC Blood Urea Nitrogen (Misc Panel > 140H, POC Ionized Calcium (Misc Panel) 4.7, POC Creatinine (Misc Panel) 6.4H, POC Hematocrit (Misc Panel) 31.0L 06/30/20 18:01: Bedside Glucose (Misc Panel) 101 06/30/20 18:07: Coronavirus (COVID-19)(PCR) NEGATIVE, Influenza Type A (RT-PCR) NEGATIVE, Influenza Type B (RT-PCR) NEGATIVE, Respiratory Syncytial Virus (PCR) NEGATIVE CBC/BMP Laboratory Tests 06/30/20 16:21 Plan / VTE VTE Prophylaxis Ordered?: Yes GME ATTESTATION GME ATTESTATION My faculty preceptor for this patient encounter was physically present during the encounter and was fully available. All aspects of the patient interview, examination, medical decision making process, and medical care plan development were reviewed and approved by the faculty preceptor. The faculty preceptor is aware and concurs with the plan as stated in the body of this note and will attest to such by his/her cosignature. ATTENDING NOTE Time of service 1144pm Mr. Harden is an 84 yr old M w a hx of DM2, obesity, ZEE, HTN, DLP, KS CAD w stent, biatrial enlargement and Pulm HTN who presented for evaluation after falling out of his chair and being found to have hypoglycemia; he will be admitted for management and evaluation of hypoglycemia, ABLJIT on CKD, hyperkalemia and bicytopenia. Rest per 's H&P Aristeo Seals DO Jun 30, 2020 19:49 SAURABH GREEN MD Jul 01, 2020 04:52
[2020-06-30] MEDS ORDERED: ACETAMINOPHEN TAB 650MG DOSE (2X325MG) PO PRN (20:40)
[2020-06-30] MEDS ORDERED: DEXTROSE 50% 50 ML SYRINGE IV PRN (20:45)
[2020-06-30] MEDS ORDERED: GLUCAGON INJ 1MG VIAL SC PRN (20:45)
[2020-06-30] MEDS ORDERED: GLUCOSE 4GM CHEW TABLET PO PRN (20:45)
[2020-06-30] MEDS ORDERED: HumaLOG INSULIN (NovoLOG) PER UNIT SC SCH (21:00)
--- NOTE | 2020-06-30 22:31 | ECGEPIP ---
[facility] - ED Test Date: 2020-06-30 Pat Name: CHARY NORTH Department: Room: - Gender: Male Pc Maintenance Technician: SAM : [id number] Requested By: KEVIN PECK Order Number: [id number] Reading MD: Kevin Tate Measurements Intervals [place] Rate: 48 P: RI: QRS: -25 QRSD: 108 T: 50 QT: 492 QTc: 439 Interpretive Statements Atrial fibrillation with slow ventricular response Delayed anterior R wave progression Rate decreased from tracing done 06-20-20 Electronically Signed on 06-30-2020 22:31:28 EDT by Kevin Tate
[2020-06-30 22:47] VITALS: BP 123/59
[2020-06-30] MEDS: APIXABAN 5 MG TAB (ELIQUIS) PO SCH (23:09)
[2020-07-01] MEDS ORDERED: CALCIUM CHLORIDE 10% 1 GM in D5W 100 ML IV ONE (05:00)
[2020-07-01] MEDS: NS 1,000 ML IV SCH ×3 (05:12→20:09)
[2020-07-01 05:18] LABS: HEMATOCRIT 30.4 % (42.0-52.0); HEMOGLOBIN 9.7 g/dl (13.5-17.5); MEAN CORPUSCULAR HEMOGLOBIN 27.8 pg (27.0-33.0); MEAN CORPUSCULAR HGB CONC 31.9 g/dl (32.0-36.5); MEAN CORPUSCULAR VOLUME 87.1 fl (80.0-96.0); PLATELET COUNT, AUTOMATED 134 10^3/uL (150-450); RED BLOOD COUNT 3.49 10^6/uL (4.30-6.10); WHITE BLOOD COUNT 9.5 10^3/uL (4.0-10.0)
[2020-07-01 05:42] LABS: FERRITIN 121 NG/ML (26-388); IRON (FE) 48 UG/DL (65-175); PERCENT SATURATION 19.3 % (19.7-50.0); PHOSPHORUS LEVEL 4.7 MG/DL (2.5-4.9); TOTAL IRON BINDING CAPACITY 249 UG/DL (250-450); TOTAL PROTEIN 6.2 GM/DL (6.4-8.2); URIC ACID 13.7 MG/DL (3.5-7.2)
[2020-07-01 06:00] VITALS: BP 129/53
[2020-07-01] MEDS ORDERED: HumaLOG INSULIN (NovoLOG) PER UNIT SC SCH (07:30)
[2020-07-01 08:22] LABS: CALCIUM LEVEL 8.5 MG/DL (8.8-10.2); CREATININE FOR GFR 5.13 MG/DL (0.70-1.30); GLOMERULAR FILTRATION RATE 11.5 (>35); POTASSIUM SERUM 5.5 MEQ/L (3.5-5.1)
--- NOTE | 2020-07-01 08:37 | REP ---
INDICATION: julián. COMPARISON: None. TECHNIQUE: Urinary tract sonography. FINDINGS: Scanning at the level of the urinary bladder shows no abnormality. Renal cortical echogenicity pattern is increased consistent with chronic medical renal disease.. There is no evidence hydronephrosis on either side. Cortical thinning and multiple cysts are seen bilaterally. The 2 largest cysts on the right measure 2.4 and 1.7 cm in greatest diameter at mid pole and lower pole level respectively. The 2 largest cysts on the left measures 2.6 and 2.0 cm at mid kidney level. No renal mass is observed.. The right kidney measures 10.9 x 3.9 x 5.4 cm. Left renal dimensions are 10.4 x 5.6 x 5.2 cm. IMPRESSION: Increased renal cortical echogenicity consistent with chronic medical renal disease. Multiple small bilateral renal cysts. No evidence hydronephrosis or mass.. <Electronically signed by Elías Chavez > 07/01/20 [id number]
[2020-07-01] MEDS ORDERED: TORSEMIDE 20 MG TAB PO SCH (09:00)
[2020-07-01] MEDS ORDERED: METOPROLOL SUCC (TopROL XL) 100MG *XL* TAB PO SCH (09:00)
[2020-07-01] MEDS ORDERED: lisinopriL 40 MG TAB PO SCH (09:00)
[2020-07-01] MEDS ORDERED: SPIRONOLACTONE 25 MG TAB PO SCH (09:00)
[2020-07-01] MEDS: ASPIRIN 81MG ENTERIC TABLET PO SCH (10:22)
[2020-07-01] MEDS: ASCORBIC ACID 250 MG TAB PO SCH (10:22)
[2020-07-01] MEDS: MULTIVITAMINS/MINERALS THERAP 1 TAB PO SCH (10:22)
[2020-07-01] MEDS: FERROUS SULFATE 325MG TAB PO SCH (10:22)
[2020-07-01] MEDS: ATORVASTATIN 20 MG TAB PO SCH (10:23)
[2020-07-01] MEDS: APIXABAN 5 MG TAB (ELIQUIS) PO SCH ×2 (10:23→20:08)
[2020-07-01] MEDS: CYANOCOBALAMIN 500 MCG TAB PO SCH (10:23)
[2020-07-01] MEDS ORDERED: SOD POLYSTYRENE SULFONATE SUSP 15 GM/60 ML UD PO ONE (13:00)
[2020-07-01 13:02] LABS: APPEARANCE, URINE CLEAR (CLEAR); BACTERIA, URINE AUTO NEGATIVE (NEGATIVE); BILIRUBIN, URINE AUTO NEGATIVE (NEGATIVE); BLOOD, URINE BLOOD 2+ (NEGATIVE); COLOR, URINE YELLOW (YELLOW); GLUCOSE, URINE (UA) AUTO NEGATIVE (NEGATIVE); KETONE, URINE AUTO NEGATIVE (NEGATIVE); LEUKOCYTE ESTERASE, URINE AUTO NEGATIVE (NEGATIVE); NITRITE, URINE AUTO NEGATIVE (NEGATIVE); PROTEIN, URINE AUTO NEGATIVE (NEGATIVE); RBC, URINE AUTO 5 /HPF (0-3); SPECIFIC GRAVITY URINE AUTO 1.011 (1.002-1.035); SQUAMOUS EPITHELIAL CELL UR AU 0 /HPF (0-6); UROBILINOGEN, URINE AUTO 0.2 mg/dL (0.0-2.0); WBC, URINE AUTO 1 /HPF (0-3)
[2020-07-01 13:32] LABS: CREATININE,RANDOM URINE 76.1 MG/DL; POTASSIUM RANDOM URINE 32.4 MEQ/L
[2020-07-01 13:46] LABS: CALCIUM LEVEL 9.6 MG/DL (8.8-10.2); CREATININE FOR GFR 4.46 MG/DL (0.70-1.30); GLOMERULAR FILTRATION RATE 13.6 (>35)
[2020-07-01 14:00] VITALS: BP 125/49
--- NOTE | 2020-07-01 15:22 | IPNPDOC ---
Subjective Date Seen The patient was seen on 07/01/20. Subjective Chief Complaint/HPI Mr. Harden is an 84 year old male with CKD stage 4, morbid obesity, and CHF who initially presents for hypoglycemia, but found to have BALJIT on CKD. This morning, he feels better. Denies chest pain or dyspnea at rest. He does not have much urine output. Nursing placed Beckford catheter in the afternoon and only 150mL were removed. Otherwise, US kidneys were negative for hydronephrosis. Objective Physical Examination General Exam: Positive: Alert, Cooperative Eye Exam: Positive: EOMI; Negative: Sclera icteric Neck Exam: Positive: Supple Chest Exam: Positive: Diminished Heart Exam: Positive: Rate Normal, Regular Rhythm Abdomen Exam: Positive: Normal bowel sounds, Soft; Negative: Tenderness Extremity Exam: Positive: Edema (very mild) Neuro Exam: Positive: Cranial Nerves 3-12 NL Psych Exam: Positive: Mental status NL, Mood NL Assessment /Plan Assessment Mr. Harden is an 84 year old male with CKD stage 4, morbid obesity, and CHF who initially presents for hypoglycemia, but found to have BALJIT on CKD. His hypoglycemia resolved, but his renal function has not recovered. Denies any NSAID use, but reports decreased oral intake while on spironolactone, torsemide, and lisinopril. Will continue holding nephrotoxic agents. Nephrology consulted, recommendations appreciated. We will continue hydrating the patient. Plan/VTE VTE Prophylaxis Ordered?: Yes Plan 1. BALJIT on CKD stage 4 -Recently here with CHF -At home, poor oral intake while on diuretics -Hold spironolactone, torsemide, and lisinopril -Continue with hydration -Nephrology consulted, recommendations appreciated 2. Hyperkalemia -Seconary to BALJIT -Monitor potassium and give Kayexalate when elevated -IVF -Switch diet to renal diet 3. Hypoglycemia -Improved -Monitor POC glucose, When appropriate, reintroduce sliding scale insulin 4. Atrial fibrillation -Rate control with metoprolol succinate -Anticoagulation with Eliquis 5. Hypertension -Hold lisinopril -Continue amlodipine and metoprolol succinate 6. Obesity -BMI 39.3 -Complicates care 7. DVT ppx -Eliquis Disposition: Pending improvement in renal function VS, I&O, 24H, Fishbone Vital Signs/I&O Vital Signs Date Time Temp Pulse Resp B/P (MAP) Pulse Ox O2 Delivery O2 Flow Rate FiO2 07/01/20 14:00 97.2 52 16 125/49 (74) 100 Room Air I&O- Last 24 Hours up to 6 AM 07/01/20 06:00 Intake Total 1300 ml Output Total 0 ml Balance 1300 ml Laboratory Data 24H LABS Laboratory Tests 2 06/30/20 16:21: Immature Granulocyte % (Auto) 0.6, Neutrophils (%) (Auto) 83.5H, Lymphocytes (%) (Auto) 7.9L, Monocytes (%) (Auto) 6.8, Eosinophils (%) (Auto) 0.8, Basophils (%) (Auto) 0.4, Neutrophils # (Auto) 8.0, Lymphocytes # (Auto) 0.8L, Monocytes # ( Auto) 0.7, Eosinophils # (Auto) 0.1, Basophils # (Auto) 0.0, Nucleated Red Blood Cells % (auto) 0.0, Anion Gap 9, Glomerular Filtration Rate 10.2L, Calcium Level 9.4, Total Bilirubin 1.0, Direct Bilirubin 0.2, Aspartate Amino Transf (AST/SGOT) 23, Alanine Aminotransferase (ALT/SGPT) 26, Alkaline Phosphatase 51, Total Protein 6.9, Albumin 3.8, Albumin/Globulin Ratio 1.2, Lipase 607H 06/30/20 16:22: POC Glucose (Misc Panel) 98, POC Sodium (Misc Panel) 134L, POC Potassium (Misc Panel) 5.8H, POC Chloride (Misc Panel) 101, POC Total CO2 (Misc Panel) 24.0, POC Blood Urea Nitrogen (Misc Panel > 140H, POC Ionized Calcium (Misc Panel) 4.7, POC Creatinine (Misc Panel) 6.4H, POC Hematocrit (Misc Panel) 31.0L 06/30/20 18:01: Bedside Glucose (Misc Panel) 101 06/30/20 18:07: Coronavirus (COVID-19)(PCR) NEGATIVE, Influenza Type A (RT-PCR) NEGATIVE, Influenza Type B (RT-PCR) NEGATIVE, Respiratory Syncytial Virus (PCR) NEGATIVE 06/30/20 22:27: Bedside Glucose (Misc Panel) 91 06/30/20 23:04: Bedside Glucose (Misc Panel) 82L 07/01/20 02:31: Bedside Glucose (Misc Panel) 70L 07/01/20 05:06: Nucleated Red Blood Cells % (auto) 0.0, Anion Gap 8, Glomerular Filtration Rate 11.5L, Uric Acid 13.7H, Calcium Level 8.5L, Phosphorus Level 4.7, Iron Level 48L, Total Iron Binding Capacity 249L, Transferrin % Saturation 19.3L, Ferritin 121, Total Protein (PEP) 6.2L 07/01/20 06:01: Bedside Glucose (Misc Panel) 102 07/01/20 09:37: Bedside Glucose (Misc Panel) 140H 07/01/20 12:42: Urine Color YELLOW, Urine Appearance CLEAR, Urine pH 6.0, Urine Specific [place] 1.011, Urine Protein NEGATIVE, Urine Glucose (Auto)(UA) NEGATIVE, Urine Ketones (Auto) NEGATIVE, Urine Blood 2+H, Urine Nitrite NEGATIVE, Urine Bilirubin NEGATIVE, Urine Urobilinogen 0.2, Urine Leukocyte Esterase (Auto) NEGATIVE, Urine WBC (Auto) 1, Urine RBC (Auto) 5H, Urine Hyaline Casts (Auto) 0, Urine Bacteria (Auto) NEGATIVE, Urine Squamous Epithelial Cells 0, Urine Sperm (Auto) 07/01/20 12:43: Urine Random Creatinine 76.1, Urine Random Potassium 32.4, Urine Random Urea Nitrogen 750 07/01/20 13:14: Anion Gap 5L, Glomerular Filtration Rate 13.6L, Calcium Level 9.6 CBC/BMP Laboratory Tests 06/30/20 16:21 07/01/20 05:06 07/01/20 13:14 ARCADIO KEITH 27, 2021 15:22
[2020-07-01 18:43] LABS: CREATININE FOR GFR 4.2 MG/DL (0.70-1.30); GLOMERULAR FILTRATION RATE 14.5 (>35); POTASSIUM SERUM 5.3 MEQ/L (3.5-5.1)
[2020-07-01 22:00] VITALS: BP 143/57
[2020-07-02 00:48] LABS: CALCIUM LEVEL 8.5 MG/DL (8.8-10.2); CREATININE FOR GFR 3.93 MG/DL (0.70-1.30); GLOMERULAR FILTRATION RATE 15.7 (>35); POTASSIUM SERUM 5.5 MEQ/L (3.5-5.1)
[2020-07-02 06:00] VITALS: BP 127/67
[2020-07-02 06:04] LABS: HEMATOCRIT 30.8 % (42.0-52.0); HEMOGLOBIN 9.5 g/dl (13.5-17.5); MEAN CORPUSCULAR HEMOGLOBIN 27.3 pg (27.0-33.0); MEAN CORPUSCULAR HGB CONC 30.8 g/dl (32.0-36.5); MEAN CORPUSCULAR VOLUME 88.5 fl (80.0-96.0); PLATELET COUNT, AUTOMATED 112 10^3/uL (150-450); RED BLOOD COUNT 3.48 10^6/uL (4.30-6.10); WHITE BLOOD COUNT 8.3 10^3/uL (4.0-10.0)
[2020-07-02 06:25] LABS: CALCIUM LEVEL 8.5 MG/DL (8.8-10.2); CREATININE FOR GFR 3.61 MG/DL (0.70-1.30); GLOMERULAR FILTRATION RATE 17.3 (>35); POTASSIUM SERUM 5.1 MEQ/L (3.5-5.1)
[2020-07-02] MEDS: ASCORBIC ACID 250 MG TAB PO SCH (09:27)
[2020-07-02] MEDS: CYANOCOBALAMIN 500 MCG TAB PO SCH (09:27)
[2020-07-02] MEDS: FERROUS SULFATE 325MG TAB PO SCH (09:27)
[2020-07-02] MEDS: APIXABAN 5 MG TAB (ELIQUIS) PO SCH ×2 (09:27→20:51)
[2020-07-02] MEDS: ASPIRIN 81MG ENTERIC TABLET PO SCH (09:27)
[2020-07-02] MEDS: MULTIVITAMINS/MINERALS THERAP 1 TAB PO SCH (09:27)
[2020-07-02] MEDS: ATORVASTATIN 20 MG TAB PO SCH (09:27)
[2020-07-02] MEDS: METOPROLOL SUCC *XL* 25MG TAB (TopROL *XL*) PO SCH (09:33)
[2020-07-02 14:00] VITALS: BP 129/51
[2020-07-02 14:34] LABS: CALCIUM LEVEL 8.8 MG/DL (8.8-10.2); CREATININE FOR GFR 3.2 MG/DL (0.70-1.30); GLOMERULAR FILTRATION RATE 19.9 (>35); POTASSIUM SERUM 5.3 MEQ/L (3.5-5.1)
--- NOTE | 2020-07-02 14:39 | IPNPDOC ---
Subjective Date Seen The patient was seen on 07/02/20. Subjective Chief Complaint/HPI Mr. Harden is an 84 year old male with CKD stage 4, morbid obesity, and CHF who initially presents for hypoglycemia, but found to have BALJIT on CKD. This morning, he was seen sitting up in chair. Denies chest pain or dyspnea. Beckford has clear yellow urine. Objective Physical Examination General Exam: Positive: Alert, Cooperative Eye Exam: Positive: EOMI; Negative: Sclera icteric Neck Exam: Positive: Supple Chest Exam: Positive: Diminished Heart Exam: Positive: Rate Normal, Regular Rhythm Abdomen Exam: Positive: Normal bowel sounds, Soft; Negative: Tenderness Extremity Exam: Positive: Edema (very mild) Neuro Exam: Positive: Cranial Nerves 3-12 NL Psych Exam: Positive: Mental status NL, Mood NL Assessment /Plan Assessment Mr. Harden is an 84 year old male with CKD stage 4, morbid obesity, and CHF who initially presents for hypoglycemia, but found to have BALJIT on CKD. His hypoglycemia resolved, but his renal function has not recovered. Denies any NSAID use, but reports decreased oral intake while on spironolactone, torsemide, and lisinopril. Will continue holding nephrotoxic agents. Nephrology consulted, recommendations appreciated. We will continue hydrating the patient. Plan/VTE VTE Prophylaxis Ordered?: Yes Plan 1. BALJIT on CKD stage 4 -Recently here with CHF -At home, poor oral intake while on diuretics -Hold spironolactone, torsemide, and lisinopril -Continue with hydration -Nephrology consulted, recommendations appreciated 2. Hyperkalemia -Seconary to BALJIT -Monitor potassium and give Kayexalate when elevated -IVF -Continue renal diet 3. Hypoglycemia /DM type 2 -Improved -Added sliding scale insulin 4. Atrial fibrillation -Rate control with metoprolol succinate -Anticoagulation with Eliquis 5. Hypertension -Hold lisinopril -Continue amlodipine and metoprolol succinate 6. Obesity -BMI 39.3 -Complicates care 7. DVT ppx -Eliquis Disposition: Pending improvement in renal function VS, I&O, 24H, Fishbone Vital Signs/I&O Vital Signs Date Time Temp Pulse Resp B/P (MAP) Pulse Ox O2 Delivery O2 Flow Rate FiO2 07/02/20 14:00 96.4 64 18 129/51 (77) 95 Room Air I&O- Last 24 Hours up to 6 AM 07/02/20 06:00 Intake Total 2490 ml Output Total 1350 ml Balance 1140 ml Laboratory Data 24H LABS Laboratory Tests 2 07/01/20 16:47: Bedside Glucose (Misc Panel) 159H 07/01/20 17:59: Anion Gap 6L, Glomerular Filtration Rate 14.5L, Calcium Level 9.0 07/01/20 19:50: Bedside Glucose (Misc Panel) 154H 07/02/20 00:03: Anion Gap 7L, Glomerular Filtration Rate 15.7L, Calcium Level 8.5L 07/02/20 00:13: Bedside Glucose (Misc Panel) 159H 07/02/20 04:12: Bedside Glucose (Misc Panel) 125H 07/02/20 05:13: Nucleated Red Blood Cells % (auto) 0.0, Anion Gap 3L, Glomerular Filtration Rate 17.3L, Calcium Level 8.5L 07/02/20 07:59: Bedside Glucose (Misc Panel) 122H 07/02/20 11:22: Bedside Glucose (Misc Panel) 157H 07/02/20 13:59: CBC/BMP Laboratory Tests 07/01/20 17:59 07/02/20 00:03 07/02/20 05:13 ARCADIO KEITH 28, 2021 14:39
[2020-07-02] MEDS ORDERED: SOD POLYSTYRENE SULFONATE SUSP 15 GM/60 ML UD PO ONE (16:00)
--- NOTE | 2020-07-02 18:06 | CR ---
NEPHROLOGY CONSULTATION DATE: 07/02/2020 REQUESTING PHYSICIAN: Brent Nj D.O. REASON FOR CONSULTATION: Acute kidney injury and history of congestive heart failure in this gentleman with multiple chronic medical problems. HISTORY OF PRESENT ILLNESS: Mr. Harden was admitted to [facility] on the evening of June 30, 2020 due to not feeling well. Apparently, he was sitting in the chair and could not get up. He was feeling too weak. He was found to have hypoglycemia and also acute kidney injury superimposed on chronic kidney disease. It is important to know that he was recently admitted to [facility] with congestive heart failure and was diuresed. His diuretic was adjusted on discharge. Patient reports that he had decreased appetite and was not eating well for a few days, but continued to take his medications. Nephrology consultation was requested yesterday and patient is seen this morning. PAST MEDICAL HISTORY: Significant for: 1. History of morbid obesity. 2. History of obstructive sleep apnea. 3. Hypertension. 4. Hyperlipidemia. 5. Prior history of myocardial infarction (RI) status post angioplasty with stent placement about 10 years ago. 6. History of type 2 diabetes. 7. History of chronic kidney disease. 8. History of congestive heart failure. PAST SURGICAL HISTORY: Significant for: Coronary angioplasty with stent placement. PERSONAL AND SOCIAL HISTORY: Patient lives in senior housing. He quit smoking in the 1970s. He denies any alcohol or drug use. FAMILY HISTORY: Negative for end-stage renal disease. MEDICATIONS: His home medications include: - amlodipine 10 mg daily - Eliquis 5 mg twice a day - vitamin C 250 mg daily - aspirin 81 mg daily - atorvastatin 40 mg daily - calcium carbonate 600 mg daily - vitamin D 400 units daily - vitamin B12 500 mcg daily - ferrous sulfate 325 mg daily - glipizide 5 mg daily - lisinopril 40 mg daily - metformin 1000 mg twice a day - metoprolol 100 mg daily - multivitamin one tablet daily - spironolactone 25 mg daily - torsemide 20 mg daily - Coenzyme Q10 200 mg daily ALLERGIES: No known drug allergies. REVIEW OF SYSTEMS: Patient denies any fever or chills. He was feeling weak at home. He was found to be hypoglycemic and dehydrated. He has history of chronic leg edema, for which he has been using stockings; however, recently he did not have any leg edema. EARS, NOSE AND THROAT: Unremarkable. CARDIOVASCULAR SYSTEM: Significant for recent admission for congestive heart failure. He has known history of coronary artery disease, but denies any chest pain. RESPIRATORY SYSTEM: Negative for cough or hemoptysis. He has history of obstructive sleep apnea and has been noncompliant with continuous positive airway pressure (CPAP). ENDOCRINE SYSTEM: Significant for type 2 diabetes. Denies any thyroid problems. HEMATOLOGICAL SYSTEM: Significant for chronic anticoagulation. He denies any excessive bleeding or ecchymosis. SKIN: Negative for rash or ulcers. NEUROLOGICAL SYSTEM: Negative for seizures or stroke. MUSCULOSKELETAL SYSTEM: Significant for chronic leg edema, which has now improved since his previous admission. PHYSICAL EXAMINATION: Temperature 96.4 degrees Fahrenheit, heart rate 64 per minute, respiratory rate 18 per minute, blood pressure 129/50 mmHg, oxygen saturation 95% on room air. HEAD: Atraumatic. NECK: Supple and jugular venous distention (JVD) not abnormally elevated at present. There is no oral thrush or ulcers. HEART SOUNDS: Irregular in rhythm. LUNGS: With a few basilar rales. ABDOMEN: Obese, soft and nontender. EXTREMITIES: Without any cyanosis or clubbing. He has chronic stasis changes in lower extremities and is using compression stockings. NEUROLOGIC: He is awake, alert and oriented times three. LABORATORY DATA: On admission, his BUN was 132 and creatinine 5.7. Sodium was 135 and potassium 5.9. CO2 was 24 and glucose 104. Uric acid level was 13.7. Today's chemistry showed sodium 139, potassium 5.3, CO2 24, BUN 85, creatinine 8.2, glucose 195, calcium 8.8. Hemoglobin 9.5, hematocrit 30.8, platelets 112. PROBLEMS: 1. Acute renal failure superimposed on chronic kidney disease. His previous admission was for congestive heart failure and he required diuresis. Patient had decreased oral intake and his diuretics have recently been adjusted. He developed over-diuresis with dehydration due to decreased oral intake. Kidney function is now improved with intravenous (IV) fluid. His baseline creatinine was about 2.6 mg at the time of discharge last time. I feel that he is well-hydrated now and has adequate oral intake. I am stopping his IV fluid. His diuretic is currently on hold. 2. Hyperkalemia. Potassium level has improved since admission. At present, I would recommend to keep him off angiotensin converting enzyme (LATIA) inhibitor, but will monitor his electrolytes and kidney function for the next couple of days. 3. Congestive heart failure. His volume status seems reasonably well-compensated. His diuretics are on hold since admission due to acute kidney injury. Will consider to resume diuretic at a decreased dose in the next 24 hours. 4. Anemia. Patient does have chronic anemia and has been on chronic anticoagulation. His iron level was borderline yesterday. He should continue with oral iron supplement. 5. Type 2 diabetes. Patient has been on metformin at home, which is probably contributing to some of the problems that he has and I would recommend to not resume metformin due to advanced chronic kidney disease (CKD) and risk for lactic acidosis. He can probably be treated with another oral hypoglycemic agent. Thank you for involving me in the care of Mr. Harden. I will follow him along with you. Patient should also follow with nephrology as an outpatient due to advanced chronic kidney disease.
[2020-07-02] MEDS: HumaLOG INSULIN (NovoLOG) PER UNIT SC SCH ×2 (18:20→21:00)
[2020-07-02 22:00] VITALS: BP 151/76
[2020-07-03 06:00] VITALS: BP 141/58
[2020-07-03 06:12] LABS: HEMATOCRIT 29.9 % (42.0-52.0); HEMOGLOBIN 9.3 g/dl (13.5-17.5); MEAN CORPUSCULAR HEMOGLOBIN 27.2 pg (27.0-33.0); MEAN CORPUSCULAR HGB CONC 31.1 g/dl (32.0-36.5); MEAN CORPUSCULAR VOLUME 87.4 fl (80.0-96.0); PLATELET COUNT, AUTOMATED 127 10^3/uL (150-450); RED BLOOD COUNT 3.42 10^6/uL (4.30-6.10); WHITE BLOOD COUNT 9.8 10^3/uL (4.0-10.0)
[2020-07-03 06:29] LABS: CALCIUM LEVEL 8.6 MG/DL (8.8-10.2); CREATININE FOR GFR 2.59 MG/DL (0.70-1.30); GLOMERULAR FILTRATION RATE 25.4 (>35); PHOSPHORUS LEVEL 3.1 MG/DL (2.5-4.9); POTASSIUM SERUM 4.6 MEQ/L (3.5-5.1)
[2020-07-03] MEDS: ASPIRIN 81MG ENTERIC TABLET PO SCH (09:54)
[2020-07-03] MEDS: MULTIVITAMINS/MINERALS THERAP 1 TAB PO SCH (09:54)
[2020-07-03] MEDS: HumaLOG INSULIN (NovoLOG) PER UNIT SC SCH ×4 (09:54→20:45)
[2020-07-03] MEDS: APIXABAN 5 MG TAB (ELIQUIS) PO SCH ×2 (09:55→20:08)
[2020-07-03] MEDS: ASCORBIC ACID 250 MG TAB PO SCH (09:55)
[2020-07-03] MEDS: FERROUS SULFATE 325MG TAB PO SCH (09:55)
[2020-07-03] MEDS: CYANOCOBALAMIN 500 MCG TAB PO SCH (09:56)
[2020-07-03] MEDS: ATORVASTATIN 20 MG TAB PO SCH (09:56)
[2020-07-03] MEDS: METOPROLOL SUCC *XL* 25MG TAB (TopROL *XL*) PO SCH (09:57)
[2020-07-03 11:59] LABS: TOTAL 25(OH) VITAMIN D 51.3 NG/ML (30.0-100.0)
[2020-07-03 12:02] LABS: HEPATITIS B SURFACE ANTIGEN NEGATIVE (NEGATIVE)
--- NOTE | 2020-07-03 12:15 | IPNPDOC ---
Subjective Date Seen The patient was seen on 07/03/20. Subjective Chief Complaint/HPI Mr. Harden is an 84 year old male with CKD stage 4, morbid obesity, and CHF who initially presents for hypoglycemia, but found to have BALJIT on CKD. No events overnight. Denies any chest pain or dyspnea. Renal function has improved. Discussed case with nephrology and will make medicine changes to his regimen today. Objective Physical Examination General Exam: Positive: Alert, Cooperative Eye Exam: Positive: EOMI; Negative: Sclera icteric Neck Exam: Positive: Supple Chest Exam: Positive: Diminished Heart Exam: Positive: Rate Normal, Regular Rhythm Abdomen Exam: Positive: Normal bowel sounds, Soft; Negative: Tenderness Extremity Exam: Positive: Edema (very mild) Neuro Exam: Positive: Cranial Nerves 3-12 NL Psych Exam: Positive: Mental status NL, Mood NL Assessment /Plan Assessment Mr. Harden is an 84 year old male with CKD stage 4, morbid obesity, and CHF who initially presents for hypoglycemia, but found to have BALJIT on CKD. His hypoglycemia resolved, but his renal function has not recovered. Denies any NSAID use, but reports decreased oral intake while on spironolactone, torsemide, and lisinopril. Will continue holding nephrotoxic agents. Nephrology consulted, recommendations appreciated. On discharge metformin should not be continued. Will try a SGLT2 inhibitor canagliflozin 100mg qD as a substitute. Otherwise, lisinopril will be decreased to 10mg qD, torsemide will be decreased to 10mg qD. Plan/VTE VTE Prophylaxis Ordered?: Yes Plan 1. BALJIT on CKD stage 4 -Recently here with CHF -At home, poor oral intake while on diuretics -Nephrology consulted, recommendations appreciated -Improving at this time -Hold spironolactone and metformin. Metformin most likely contributed to her renal dysfunction -Restart torsemide and lisinopril at reduced doses. -Torsemide 10mg qD and lisinopril 10mg qD 2. Hyperkalemia -Secon[place] to BALJIT -Monitor potassium and give Kayexalate when elevated -Continue renal diet -Resolved 3. Hypoglycemia /DM type 2 -Improved -Added sliding scale insulin -On discharge, do not continue metformin. Can try Canagliflozin 100mg qD 4. Atrial fibrillation -Rate control with metoprolol succinate -Anticoagulation with Eliquis 5. Hypertension -Restart lisinopril at lower dose (Lisinopril 10mg qD) -Continue amlodipine and metoprolol succinate 6. Obesity -BMI 39.3 -Complicates care 7. DVT ppx -Eliquis Disposition: Possibly in the next 1 to 2 days. VS, I&O, 24H, Fishbone Vital Signs/I&O Vital Signs Date Time Temp Pulse Resp B/P (MAP) Pulse Ox O2 Delivery O2 Flow Rate FiO2 07/03/20 09:57 70 138/60 07/03/20 06:00 97.9 18 94 Room Air I&O- Last 24 Hours up to 6 AM 07/03/20 05:59 Intake Total 1000 ml Output Total 2350 ml Balance -1350 ml Laboratory Data 24H LABS Laboratory Tests 2 07/02/20 13:59: Anion Gap 4L, Glomerular Filtration Rate 19.9L, Calcium Level 8.8 07/02/20 16:18: Bedside Glucose (Misc Panel) 172H 07/02/20 20:54: Bedside Glucose (Misc Panel) 172H 07/03/20 05:04: Anion Gap 4L, Glomerular Filtration Rate 25.4L, Calcium Level 8.6L, Nucleated Red Blood Cells % (auto) 0.0, Phosphorus Level 3.1#, Albumin 3.0#L CBC/BMP Laboratory Tests 07/02/20 13:59 07/03/20 05:04 ARCADIO KEITH DO Jul 03, 2020 12:15
[2020-07-03] MEDS: TORSEMIDE 10 MG TABLET PO SCH (12:16)
[2020-07-03 12:29] LABS: HEPATITIS B CORE ANTIBODY IGM NEGATIVE (NEGATIVE); HEPATITIS C VIRUS ABY INDEX < 0.0 INDEX (<0.8)
--- NOTE | 2020-07-03 13:39 | IPN ---
PROGRESS NOTE DATE: 07/03/2020 SUBJECTIVE: Mr. Harden is seen this morning on his bedside. He is sitting in the chair and reports feeling well. His Beckford catheter is draining yellowish urine. The patient denies any dyspnea, chest pain, nausea or vomiting. OBJECTIVE: VITAL SIGNS: Temperature 97.9 degrees Fahrenheit, heart rate 70 per minute and respiratory rate 18 per minute. Blood pressure 138/60 mmHg and oxygen saturation 94% on room air. HEENT: Head is atraumatic. NECK: Supple and without any visible JVD sitting upright. HEART: Heart sounds are regular. LUNGS: Lung sounds clear to auscultation bilaterally. ABDOMEN: Soft, obese, and nontender and bowel sounds are normal. EXTREMITIES: Without any cyanosis or clubbing. Lower extremity edema is minimal and limited to ankles. He is wearing compression stockings. Today's labs show a WBC count 9.8, hemoglobin 9.3, and hematocrit 29.9. Platelets 127. Sodium 142, potassium 4.6, chloride 114, CO2 24, BUN 72, and creatinine 2.59. Calcium level is 8.6 and phosphorus 3.1. Glucose 123 and albumin 3.0. PROBLEMS/ASSESSMENT: 1. Acute kidney injury superimposed on chronic kidney disease. Kidney function improved to almost prior baseline. Electrolytes are within normal range. 2. Congestive heart failure. Volume status is still very well compensated. His diuretics have been on hold since admission and IV fluid was stopped yesterday. We will keep him off diuretic until tomorrow and then start with torsemide 10 mg once a day. 3. Hypertension. At present blood pressure is very well controlled without any LATIA inhibitor. He is currently off diuretics and only on beta vernon. We will resume torsemide 10 mg daily starting tomorrow. In view of his acute renal failure, I will keep him off LATIA inhibitor for now and see how he does. 4. Diabetes. Blood sugars are better controlled. He has been off Metformin due to acute renal failure. I have advised the patient to permanently stop Metformin as he has significant chronic kidney disease and would have increased risk for lactic acidosis. 5. Hyperkalemia. Mild hyperkalemia has improved without diuresis and at present he is not on LATIA inhibitor. This will be another reason to stop his LATIA inhibitor. 6. Urinary retention. Currently the patient has a Beckford catheter. He has history of increased frequency and retention. I am starting him on Flomax 0.4 mg and finasteride 5 mg daily. 7. Anemia. His anemia is chronic and most likely related to chronic kidney disease. At present we will watch and hold off on Aranesp. This can be managed as an outpatient. 8. Disposition: I have advised the patient to follow up with Nephrology after he gets discharged. He is currently followed by his primary care physician at [facility] and will need a referral to Nephrology.
[2020-07-03 14:00] VITALS: BP 111/52
[2020-07-03] MEDS ORDERED: FINASTERIDE 5 MG TAB PO SCH (21:00)
[2020-07-03] MEDS ORDERED: TAMSULOSIN 0.4 MG CAP PO SCH (21:00)
[2020-07-03 22:00] VITALS: BP 155/70
[2020-07-04 06:00] VITALS: BP 108/59
[2020-07-04 06:11] LABS: HEMATOCRIT 31.7 % (42.0-52.0); HEMOGLOBIN 9.8 g/dl (13.5-17.5); MEAN CORPUSCULAR HEMOGLOBIN 27.1 pg (27.0-33.0); MEAN CORPUSCULAR HGB CONC 30.9 g/dl (32.0-36.5); MEAN CORPUSCULAR VOLUME 87.8 fl (80.0-96.0); PLATELET COUNT, AUTOMATED 138 10^3/uL (150-450); RED BLOOD COUNT 3.61 10^6/uL (4.30-6.10); WHITE BLOOD COUNT 8.7 10^3/uL (4.0-10.0)
[2020-07-04 06:43] LABS: ALBUMIN 3.2 GM/DL (3.2-5.2); CALCIUM LEVEL 8.7 MG/DL (8.8-10.2); CREATININE FOR GFR 2.19 MG/DL (0.70-1.30); GLOMERULAR FILTRATION RATE 30.8 (>35); PHOSPHORUS LEVEL 2.9 MG/DL (2.5-4.9); POTASSIUM SERUM 4.7 MEQ/L (3.5-5.1)
[2020-07-04] MEDS: MULTIVITAMINS/MINERALS THERAP 1 TAB PO SCH (09:40)
[2020-07-04] MEDS: FERROUS SULFATE 325MG TAB PO SCH (09:40)
[2020-07-04] MEDS: ASCORBIC ACID 250 MG TAB PO SCH (09:40)
[2020-07-04] MEDS: ASPIRIN 81MG ENTERIC TABLET PO SCH (09:40)
[2020-07-04] MEDS: HumaLOG INSULIN (NovoLOG) PER UNIT SC SCH ×2 (09:40→12:00)
[2020-07-04] MEDS: CYANOCOBALAMIN 500 MCG TAB PO SCH (09:40)
[2020-07-04] MEDS: ATORVASTATIN 20 MG TAB PO SCH (09:40)
[2020-07-04] MEDS: TORSEMIDE 10 MG TABLET PO SCH (09:40)
[2020-07-04] MEDS: APIXABAN 5 MG TAB (ELIQUIS) PO SCH (09:40)
[2020-07-04 09:41] VITALS: BP 130/51
[2020-07-04] MEDS: METOPROLOL SUCC *XL* 25MG TAB (TopROL *XL*) PO SCH (09:41)
--- NOTE | 2020-07-04 12:10 | IPN ---
NEPHROLOGY PROGRESS NOTE DATE: 07/04/2020 SUBJECTIVE: Mr. Harden is seen this morning on his bedside. He is sitting in the chair at the time of my visit. His Beckford catheter was removed yesterday and patient denies any difficulty urinating. He denies any dyspnea, chest pain, nausea or vomiting. He reports that he has been ambulating, going to the bathroom, with the help of a walker. PHYSICAL EXAMINATION: Temperature 97.5 degrees Fahrenheit, heart rate 60 per minute, respiratory rate 16 per minute, blood pressure as low as 108/59 mmHg, oxygen saturation 95% on room air. HEAD: Atraumatic. NECK: Supple and jugular venous distention (JVD) not abnormally elevated sitting upright. HEART SOUNDS: Regular. LUNGS: Clear to auscultation. ABDOMEN: Obese, soft and nontender. Bowel sounds are normal. EXTREMITIES: Without any cyanosis or clubbing. He has developed lower extremity edema now. NEUROLOGIC: He is awake, alert and oriented times three. LABORATORY DATA: Today's labs show WBC 8.7, hemoglobin 9.8, hematocrit 31.7, platelets 138. Sodium 141, potassium 4.7, CO2 24, BUN 54, creatinine 2.19, glucose 121, calcium 8.7. A BNP level is 2411. PROBLEMS: 1. Congestive heart failure. His volume status seems slightly decompensated now with leg edema developing and elevated BNP level. We have already resumed his diuretic with torsemide 10 mg daily. He was on 20 mg daily at home and did develop acute renal failure with dehydration. I feel that 10 mg is appropriate dose at this point and we can make further adjustments if needed as an outpatient. 2. Acute renal failure superimposed on chronic kidney disease. My feeling is that patient has stage IV of chronic kidney disease at baseline. Acute kidney injury was related to dehydration and has already resolved. I have explained to patient that he will need followup in the office as an outpatient. [facility] and would need to get a referral to nephrology. 3. Anemia. Probably related to chronic kidney disease and borderline iron studies. He should continue with oral iron supplement. 4. Hypertension. Blood pressure has been very well controlled here at the hospital on current antihypertensive medications, which does not include lisinopril that he was taking at home. He is currently on amlodipine 10 mg daily and metoprolol 75 mg daily. I would recommend to continue holding lisinopril at this point. He did develop hyperkalemia and acute kidney injury while he was on lisinopril and diuretic. We have just resumed torsemide 10 mg daily, which will likely help with his blood pressure also. 5. Urinary retention. Patient is now on Flomax and Proscar and reports no difficulty voiding this morning. DISPOSITION: From a renal standpoint, patient can be discharged to home and follow up in the clinic as an outpatient. Patient will talk to his primary care physician at [place] [facility] for a referral to nephrology.
[2020-07-04] MEDS ORDERED: METO1TAB32 PO (12:48)
[2020-07-04] MEDS ORDERED: FINA5TAB2 PO (12:48)
[2020-07-04] MEDS ORDERED: TORS10TA3 PO (12:48)
[2020-07-04] MEDS ORDERED: FLOM0.4C39 PO (12:48)
[2020-07-04 14:00] VITALS: BP 123/63
[2020-07-04 16:17] LABS: HEPATITIS A ANTIBODY IGM EQUIVOCAL (NEGATIVE)
--- NOTE | 2020-07-04 19:34 | DS.PDOC ---
Discharge Summary General Date of Admission Jun 30, 2020 at 19:31 Date of Discharge 07/04/20 Discharge Summary PROCEDURES PERFORMED DURING STAY: [None]. ADMITTING DIAGNOSES: [place] on CKD stage 4 Hyperkalemia Hypoglycemia /DM type 2 Atrial fibrillation Hypertension Obesity DISCHARGE DIAGNOSES: [place] on CKD stage 4 Hyperkalemia Hypoglycemia /DM type 2 Atrial fibrillation Hypertension Obesity COMPLICATIONS/CHIEF COMPLAINT: Hypoglycemic Event Due To Diabetes,[place]. HISTORY OF PRESENT ILLNESS: Mr. Harden is an 84 year old male with CKD stage 4, morbid obesity, and CHF who initially presents for hypoglycemia, but found to have [place] on CKD. His hypoglycemia resolved, but his renal function has not recovered. Denies any NSAID use, but reports decreased oral intake while on spironolactone, torsemide, and lisinopril. HOSPITAL COURSE: During the hospital stay the following issues addressed 1. Acute renal failure superimposed on chronic kidney disease. His previous admission was for congestive heart failure and he required diuresis. Patient had decreased oral intake and his diuretics have recently been adjusted. He developed over-diuresis with dehydration due to decreased oral intake. Kidney function is now improved with intravenous (IV) fluid. 2. Hyperkalemia. Potassium level has improved since admission. Nephrology team recommended to discontinue LATIA inhibitor 3. Congestive heart failure. Continue torsemide decreased dose of 10 mg 4. Anemia. oral iron supplement. 5. Type 2 diabetes. Patient has been on metformin at home, which is probably contributing to some of the problems Metformin was discontinued due to high risk of lactic acidosis DISCHARGE MEDICATIONS: Please see below. ALLERGIES: Please see below. PHYSICAL EXAMINATION ON DISCHARGE: VITAL SIGNS: Please see below. Temperature 96.4 degrees Fahrenheit, heart rate 64 per minute, respiratory rate 18 per minute, blood pressure 129/50 mmHg, oxygen saturation 95% on room air. HEAD: Atraumatic. NECK: Supple and jugular venous distention (JVD) not abnormally elevated at present. There is no oral thrush or ulcers. HEART SOUNDS: Irregular in rhythm. LUNGS: With a few basilar rales. ABDOMEN: Obese, soft and nontender. EXTREMITIES: Without any cyanosis or clubbing. He has chronic stasis changes in lower extremities and is using compression stockings. NEUROLOGIC: He is awake, alert and oriented times three. LABORATORY DATA: Please see below. PROGNOSIS: Fair ACTIVITY: [As tolerated]. DIET: Cardiac DISPOSITION: Home Health Service. ITEMS TO FOLLOWUP ON ON OUTPATIENT: Follow-up with PCP DISCHARGE CONDITION: [Stable]. TIME SPENT ON DISCHARGE:40 minutes. Vital Signs/I&Os Vital Signs Date Time Temp Pulse Resp B/P (MAP) Pulse Ox O2 Delivery O2 Flow Rate FiO2 07/04/20 14:00 97.4 66 18 123/63 (83) 99 Room Air I&O- Last 24 Hours up to 6 AM 07/04/20 06:00 Intake Total 1350 ml Output Total 1500 ml Balance -150 ml Laboratory Data Labs 24H Laboratory Tests 2 07/03/20 20:21: Bedside Glucose (Misc Panel) 152H 07/04/20 05:29: Nucleated Red Blood Cells % (auto) 0.0, Anion Gap 6L, Glomerular Filtration Rate 30.8L, Calcium Level 8.7L, Phosphorus Level 2.9, ZF-[id number]-Type Natriuretic Peptide 2411H, Albumin 3.2 07/04/20 11:43: Bedside Glucose (Misc Panel) 143H CBC/BMP Laboratory Tests 07/04/20 05:29 FSBS Laboratory Tests Test 07/03/20 20:21 07/04/20 11:43 Range/Units Bedside Glucose (Misc Panel) 152 143 83-110 MG/DL Discharge Medications Scheduled Amlodipine Besylate (Amlodipine Besylate) 10 Mg Tablet, 10 MG PO DAILY Apixaban (Eliquis) 5 Mg Tablet, 5 MG PO BID, (Reported) PT STATES HAS NOT STARTED YET ([facility]) Ascorbic Acid (Vitamin C) 250 Mg Tablet, 250 MG PO DAILY, (Reported) Aspirin (Aspirin EC) 81 Mg Tablet.dr, 81 MG PO DAILY, (Reported) Atorvastatin Calcium (Atorvastatin Calcium) 80 Mg Tablet, 40 MG PO DAILY, (Reported) Calcium Carbonate (Calcium Carbonate) 600 Mg Tablet, 600 MG PO DAILY, (Reported) Cholecalciferol (Vitamin D3) (Vitamin D-400) 10 Mcg Tablet, 10 MCG PO DAILY, (Reported) Cinnamon Bark (Cinnamon) 500 Mg Capsule, 500 MG PO DAILY, (Reported) Cyanocobalamin (Vitamin B-12) (Vitamin B-12) 500 Mcg Tablet, 500 MCG PO DAILY, (Reported) Ferrous Sulfate (Ferrous Sulfate) 325 Mg Tablet, 325 MG PO DAILY, (Reported) Finasteride (Finasteride) 5 Mg Tablet, 5 MG PO QHS Glipizide (Glipizide) 5 Mg Tablet, 5 MG PO DAILY, (Reported) Metoprolol Succinate (Metoprolol Succinate) 25 Mg Tab.er.24h, 75 MG PO DAILY Multivitamins (Thera M Plus Tablet) 1 Each Tablet, 1 TAB PO DAILY, (Reported) [place]-3 Fatty Acids/Fish Oil (Fish Oil 1,000 mg Capsule) 1 Each Capsule, 1,000 MG PO DAILY, (Reported) Spironolactone (Spironolactone) 25 Mg Tablet, 25 MG PO DAILY, (Reported) Tamsulosin HCl (Flomax) 0.4 Mg Capsule, 0.4 MG PO QHS Torsemide (Torsemide) 10 Mg Tablet, 10 MG PO DAILY Ubidecarenone (Coenzyme Q10) 200 Mg Capsule, 200 MG PO DAILY, (Reported) Vitamin B Complex (Vitamin B Complex) 1 Each Tablet, 1 TAB PO DAILY, (Reported) Allergies Coded Allergies: No Known Drug Allergies (Verified Allergy, Unknown, 06/19/20) KEVIN HERNÁNDEZ DO Jul 04, 2020 19:34
[2020-07-06 08:15] LABS: ALBUMIN % 56.4 % (55.8-66.1); ALPHA-1-GLOBULIN % 5.2 % (2.9-4.9); ALPHA-1-GLOBULINS 0.32 GM/DL (0.17-0.41); ALPHA-2-GLOBULINS 0.87 GM/DL (0.42-0.99); BETA-1-GLOBULINS 0.39 GM/DL (0.28-0.60); BETA-1-GLOBULINS % 6.3 % (4.7-7.2); BETA-2-GLOBULINS 0.33 GM/DL (0.19-0.55); BETA-2-GLOBULINS % 5.4 % (3.2-6.5); GAMMA GLOBULIN % 12.7 % (11.1-18.8); GAMMA GLOBULINS 0.79 GM/DL (0.65-1.58)
== END 2020-07-04 14:42 | disposition home health service (06) | DRG 683 ==
LOC: M ED 15:02 → M ED INP 19:31 → M MSPAV 22:48
PROVIDERS: ADMIT Internal Medicine; ATTEND Internal Medicine
DX: N17.9 Acute kidney failure, unspecified (principal); I50.32 Chronic diastolic (congestive) heart failure; I48.19 Other persistent atrial fibrillation; I13.0 Hypertensive heart and chronic kidney disease with heart failure and stage 1 through stage 4 chronic kidney disease, or unspecified chronic kidney disease; R53.83 Other fatigue; R53.1 Weakness; E66.01 Morbid (severe) obesity due to excess calories; G47.33 Obstructive sleep apnea (adult) (pediatric); E78.5 Hyperlipidemia, unspecified; I87.2 Venous insufficiency (chronic) (peripheral); I25.2 Old myocardial infarction; E11.649 Type 2 diabetes mellitus with hypoglycemia without coma; N18.4 Chronic kidney disease, stage 4 (severe); I25.10 Atherosclerotic heart disease of native coronary artery without angina pectoris; I27.20 Pulmonary hypertension, unspecified; E87.5 Hyperkalemia; E11.22 Type 2 diabetes mellitus with diabetic chronic kidney disease; D63.1 Anemia in chronic kidney disease; E86.0 Dehydration; R33.9 Retention of urine, unspecified; Z87.891 Personal history of nicotine dependence; Z95.5 Presence of coronary angioplasty implant and graft; Z79.84 Long term (current) use of oral hypoglycemic drugs; Z68.39 Body mass index [BMI] 39.0-39.9, adult; Z79.01 Long term (current) use of anticoagulants; Z79.82 Long term (current) use of aspirin; Z20.822 Contact with and (suspected) exposure to COVID-19; Z91.19 Patient's noncompliance with other medical treatment and regimen

== ENCOUNTER → 2020-08-31 | Outpatient (REF) | payer MEDICARE, OTHER ==
[~2020-08-31] MED LIST changes: +FINA5TAB2 PO; +FLOM0.4C39 PO; +METO1TAB32 PO; +TORS10TA3 PO
[2020-08-31 18:28] LABS: PERCENT SATURATION 13.8 % (19.7-50.0)
== END ==
LOC: M LAB REF 17:07
PROVIDERS: ATTEND Internal Medicine Nephrology
DX: D50.9 Iron deficiency anemia, unspecified (principal)

== ENCOUNTER → 2020-09-08 | Outpatient (CLI) | payer OTHER ==
--- NOTE | 2020-09-08 13:26 | REP ---
INDICATION: CKD. COMPARISON: 07/01/2020. TECHNIQUE: Real-time sonographic evaluation of the kidneys is performed. The study is limited due to patient body habitus. FINDINGS: Renal cortical echotexture is increased bilaterally suggesting medical renal disease. There is no hydronephrosis bilaterally. There are again multiple simple cysts identified, a cyst in the upper pole the right kidney measures 2.1 cm maximally, 2 cysts in the lower pole the left kidney measure 2.1 and 2.0 cm in maximum diameter. No large renal calculi are seen. The right kidney measures 12.7 x 5.7 x 6.3 cm. Left renal dimensions are 11.2 x 5.2 x 6.4 cm. Debris is seen in the bladder. Ureteral jets could not be seen in the bladder with Doppler color evaluation. IMPRESSION: No hydronephrosis. Bilateral renal cysts again seen. Increased echotexture of the kidneys suggests medical renal disease. Nonspecific debris in the bladder. <Electronically signed by Carmine Vargas > 09/08/20 [id number]
== END ==
LOC: M RAD 11:48
PROVIDERS: ATTEND Family Medicine
DX: N28.1 Cyst of kidney, acquired (principal); N18.9 Chronic kidney disease, unspecified; N32.89 Other specified disorders of bladder

== ENCOUNTER 2020-12-06 12:06 | Emergency (ER) | payer OTHER ==
[~2020-12-06] VITALS: Ht 180.3 cm; Wt 131.9 kg
[~2020-12-06 12:06] MED LIST changes: -APPL300T4 PO; -ELIQ2.5T PO; -FERR324T21 PO; +LEVO250T12 PO; -LEVO250T3 PO; -MAGN250T22 PO; -METO1TAB7 PO
[2020-12-06 12:18] VITALS: BP 164/70
== END 2020-12-06 13:20 | disposition left against medical advice (07) ==
LOC: M ED 12:06
DX: Z53.29 Procedure and treatment not carried out because of patient's decision for other reasons (principal)

== ENCOUNTER → 2020-12-06 | Outpatient (REF) | payer OTHER ==
[~2020-12-06] MED LIST changes: +APPL300T4 PO; +ELIQ2.5T PO; +FERR324T21 PO; -LEVO250T12 PO; +LEVO250T3 PO; +MAGN250T22 PO; +METO1TAB7 PO
[2020-12-06 17:53] LABS: PERCENT SATURATION 26.8 % (19.7-50.0)
== END ==
LOC: M LAB REF 17:00
PROVIDERS: ATTEND Internal Medicine Nephrology
DX: D50.9 Iron deficiency anemia, unspecified (principal)

== ENCOUNTER 2020-12-15 15:51 | Inpatient (IN) | payer OTHER ==
[~2020-12-15] VITALS: Ht 180.3 cm; Wt 128.0 kg
[2020-12-15] MEDS ORDERED: FERR324T21 PO (16:03)
[2020-12-15] MEDS ORDERED: TORS20TA2 PO ×2 (16:03)
--- NOTE | 2020-12-15 19:19 | REP ---
INDICATION: DYSPNEA/COUGH. COMPARISON: 06/30/2020. TECHNIQUE: Single portable AP view of the chest was performed. FINDINGS: There is cardiomegaly again noted. There is pulmonary venous hypertension. No infiltrate is seen. The mediastinal silhouette is unchanged. IMPRESSION: Cardiomegaly and pulmonary venous hypertension similar to the prior study. No evidence of acute infiltrate. <Electronically signed by Carmine Vargas > [id number]/[id number]
[2020-12-15 20:11] LABS: BASO # 0.1 10^3/uL (0.0-0.2); BASO % 0.7 % (0.0-1.0); EOS # 0.2 10^3/uL (0.0-0.5); EOS % 2.2 % (0.0-3.0); HEMATOCRIT 33.6 % (42.0-52.0); HEMOGLOBIN 10.5 g/dl (13.5-17.5); LYMPH # 1.2 10^3/uL (1.5-5.0); LYMPH % 11.2 % (24.0-44.0); MEAN CORPUSCULAR HEMOGLOBIN 26.9 pg (27.0-33.0); MEAN CORPUSCULAR HGB CONC 31.3 g/dl (32.0-36.5); MEAN CORPUSCULAR VOLUME 85.9 fl (80.0-96.0); MONO # 1.2 10^3/uL (0.0-0.8); MONO % 11.1 % (2.0-8.0); NEUTROPHILS % 74.3 % (36.0-66.0); PLATELET COUNT, AUTOMATED 189 10^3/uL (150-450); RED BLOOD COUNT 3.91 10^6/uL (4.30-6.10); WHITE BLOOD COUNT 10.7 10^3/uL (4.0-10.0)
--- NOTE | 2020-12-15 20:22 | REP ---
INDICATION: BLE swelling COMPARISON: None. TECHNIQUE: Real time compression and duplex Doppler interrogation of the bilateral lower extremity deep venous system is performed. Compression ultrasound is performed of the bilateral peroneal and posterior tibial veins. FINDINGS: Bilaterally, the common femoral, superficial femoral and popliteal veins are fully compressible with transducer pressure and demonstrate normal spontaneous and phasic flow, without evidence of deep venous thrombosis. The bilateral peroneal and posterior tibial veins could not be visualized due to soft tissue edema. IMPRESSION: No evidence of deep venous thrombosis of the bilateral lower extremity femoral popliteal venous system. <Electronically signed by Carmine Vargas > 12/15/20 2019
[2020-12-15 20:45] LABS: ALBUMIN 3.4 GM/DL (3.2-5.2); ALT/SGPT 31 U/L (12-78); BILIRUBIN,DIRECT 0.2 MG/DL (0.0-0.2); BILIRUBIN,TOTAL 0.9 MG/DL (0.2-1.0); BLOOD UREA NITROGEN 55 MG/DL (7-18); C REACTIVE PROTEIN QUANTITATIV 3.61 MG/DL (0.00-0.30); CALCIUM LEVEL 9.2 MG/DL (8.8-10.2); CARBON DIOXIDE LEVEL 30 MEQ/L (21-32); CHLORIDE LEVEL 102 MEQ/L (98-107); CK-MB VALUE MASS 1.4 NG/ML (<3.6); CPK CREATINE PHOSPHOKINASE 83 U/L (39-308); CREATININE FOR GFR 2.44 MG/DL (0.70-1.30); GLOMERULAR FILTRATION RATE 27.1 (>35); GLUCOSE, FASTING 80 MG/DL (70-100); MB/CK RELATIVE INDEX 1.69 (< OR =4); NT-PRO BNP 1563 PG/ML (<450); POTASSIUM SERUM 4.9 MEQ/L (3.5-5.1); SODIUM LEVEL 136 MEQ/L (136-145); THYROXINE (T4) 6.4 UG/DL (4.5-12.0); TOTAL PROTEIN 7.3 GM/DL (6.4-8.2); TROPONIN I < 0.02 NG/ML (< 0.10)
[2020-12-15 20:48] LABS: ERYTHROCYTE SEDIMENTATION RATE 71 mm/hr (0-20)
[2020-12-15] MEDS ORDERED: FERROUS GLUCONATE 324 MG TAB PO SCH (21:00)
[2020-12-15] MEDS ORDERED: HumaLOG INSULIN (NovoLOG) PER UNIT SC SCH (21:00)
[2020-12-15] MEDS ORDERED: CEFTAROLINE FOSAMIL 600 MG in D5W MINI-BAG PLUS 50 ML IV ONE (21:15)
[2020-12-15] MEDS ORDERED: ELIQ2.5T PO (22:16)
[2020-12-15] MEDS ORDERED: FLOM0.4C39 PO (22:20)
[2020-12-15] MEDS ORDERED: METO1TAB7 PO (22:20)
[2020-12-15] MEDS ORDERED: FINA5TAB2 PO (22:20)
[2020-12-15 22:22] LABS: RSV AMPLIFICATION NEGATIVE (NEGATIVE)
[2020-12-15] MEDS ORDERED: ACETAMINOPHEN TAB 650MG DOSE (2X325MG) PO PRN (22:30)
[2020-12-15] MEDS ORDERED: GLUCOSE 4GM CHEW TABLET PO PRN (22:30)
[2020-12-15] MEDS ORDERED: DEXTROSE 50% 50 ML SYRINGE IV PRN (22:30)
[2020-12-15] MEDS ORDERED: GLUCAGON INJ 1MG VIAL SC PRN (22:30)
--- NOTE | 2020-12-15 22:46 | HPEPDOC ---
[facility] Medical History & Physical Date of Admission Dec 15, 2020 Date of Service: Dec 15, 2020 Primary Care Physician: Mariano Chung MD Attending Physician: SAURABH GREEN MD History and Physical CHIEF COMPLAINT: Lower extremity swelling/redness HISTORY OF PRESENT ILLNESS: Patient is an 85 year old male who presents with chief complaint of lower extremity redness and swelling at the urging of his family physician at the [place]. He states he was placed on doxycycline several weeks ago and went to his doctor for follow up where he was prescribed keflex and told to go to the emergency department for further evaluation and concern for cellulitis with outpatient treatment failure. He has a history of chronic lower extremity swelling, edema, and redness for at least the last 3 months or so. He denies any fevers, chills, pain/tenderness in LE, and feels like his legs are largely unchanged. He also denies any chest pain, SOB, states he has intermittent non-productive cough that is worse when lying flat, but denies any PND. In the emergency department he had a negative bilat LE U/S, mildly elevated WBC count, mildly elevated CRP, and a Pro BNP that is lower than what it was on discharge from the hospital in June 2020. He states his weights at home have been about the same and he checks them intermittently (yesterday he was 285, but states he was 291 at the [place]). He was started on ceftaroline out of concern for RLE cellulitis with outpatient tx failure and the hospitalist service was contacted for admission. PAST MEDICAL HISTORY: Morbid obesity ZEE noncompliant with CPAP Hypertension A. fib BPH CHFpEF Dyslipidemia [place] with 1 stent placed CAD Type 2 diabetes (12/26 A1c 6%) PAST SURGICAL HISTORY: Stent placement greater than 10 years ago SOCIAL HISTORY: Denies current tobacco use. Quit in 1969. Denies alcohol use. Denies marijuana, heroin, cocaine, PCP, or other illicit drug use. FAMILY HISTORY: Reviewed, noncontributory ALLERGIES: Please see below. REVIEW OF SYSTEMS: Constitutional: Denies fevers, chills, night sweats, or recent unexpected weight change HEENT: Denies headaches, head trauma, no visual changes or eye pain, denies nosebleeds or difficulty swallowing. Cardiovascular: Denies chest pain, palpitations, or orthopnea. Respiratory: Denies cough, wheezing, or shortness of breath GI: Denies nausea, vomiting, abdominal pain, diarrhea, or constipation : Denies pain with urination or frequency Musculoskeletal: Denies joint pain Neuro/psych: Denies muscle weakness or sensory loss Skin: Denies skin rashes HOME MEDICATIONS: Please see below. PHYSICAL EXAMINATION: VITAL SIGNS: See below GENERAL APPEARANCE: Well-appearing male sitting comfortably in bed in no acute distress HEENT: NC, AT, EOMI, no scleral icterus, moist mucous membranes, no pharyngeal erythema. CARDIOVASCULAR: RRR, normal S1-S2. No murmurs, gallops, rubs. LUNGS: CTAB with full breath sounds, no wheezes, crackles, or rhonchi. ABDOMEN: Morbidly obese, soft, non-tender, non-distended, bowel sounds present. No masses or ecchymosis. No CVA tenderness. EXTREMITIES: 2 mm bilateral pitting edema lasting>60 seconds up to the knees, with circumferential non-tender hyperpigmentation, erythema, superficial desquamation without drainage between the ankle extending to the knees bilaterally, and areas of less erythema on the right extending up to the R-inner thigh. 2+ DP/PT pulses bilaterally. Sensation intact in bilateral LE. NEUROLOGICAL: No focal or sensory deficits. CN II-XII grossly intact. PSYCHIATRIC: Normal mood and affect LABORATORY DATA: See below. IMAGIN12/15/2020 chest x-ray: "IMPRESSION: Cardiomegaly and pulmonary venous hypertension similar to the prior study. No evidence of acute infiltrate." 12/15/2020 bilateral lower extremity venous U/S: "IMPRESSION: No evidence of deep venous thrombosis of the bilateral lower extremity femoral popliteal venous system." MICROBIOLOGY: Please see below. Assessment/Plan: #. Bilateral LE edema - Suspect Stasis dermatitis vs lymphedema as patient is obese and has bilateral, chronic, pitting edema with non-tender LE. Regardless of which it is, either can predispose to 2/2 superficial or deep skin infection -Will trial patient on some IV lasix to optimize fluid status, I do not suspect he is in failure right now, elevated bilateral LE, compression stockings. Low sodium diet #. ?RLE cellulitis -x1 dose Ceftaroline to cover for pseudomonal infection per ED provider -Will continue patient on Clindamycin for MRSA coverage, but may consider discontinuation if erythema fails to improve as this likely means it is simply chronic changes #. CKD stage IV Creatinine is currently at baseline #. ZEE States in the last 2 months he has maybe used it about a dozen times but is trying to get better about using it. -On 13 cm H20 #. A. fib Continue home Eliquis and metoprolol #. BPH Continue home finasteride, Flomax #. ?CHFpEF June 2020 echo largely inconclusive however grossly normal LV systolic functioning and possible diastolic dysfunction with possible elevated pulmonary artery pressures and definitive biatrial enlargement. Continue home Aldactone, metoprolol Holding home torsemide in favor of IV Lasix #. Normocytic anemia -Normal ferritin and iron levels as of 12/26, will still have patient continue PO iron supplementation Improved from baseline, suspect anemia of chronic disease in setting of kidney disease. #. History of ACS Continue baby aspirin, atorvastatin, metoprolol DVT prophylaxis: Eliquis Disposition: Observation CODE STATUS: DNR/trial of intubation Vital Signs Vital Signs Date Time Temp Pulse Resp B/P (MAP) Pulse Ox O2 Delivery O2 Flow Rate FiO2 12/15/20 15:51 98.3 71 17 169/70 (103) 97 Room Air Laboratory Data Labs 24H Laboratory Tests 2 12/15/20 19:54: Immature Granulocyte % (Auto) 0.5, Neutrophils (%) (Auto) 74.3H, Lymphocytes (%) (Auto) 11.2L, Monocytes (%) (Auto) 11.1H, Eosinophils (%) (Auto) 2.2, Basophils (%) (Auto) 0.7, Neutrophils # (Auto) 8.0, Lymphocytes # (Auto) 1.2L, Monocytes # (Auto) 1.2H, Eosinophils # (Auto) 0.2, Basophils # (Auto) 0.1, Nucleated Red Blood Cells % (auto) 0.0, Erythrocyte Sedimentation Rate 71H, Anion Gap 4L, Glomerular Filtration Rate 27.1L, Lactic Acid Level 0.9, Calcium Level 9.2, Total Bilirubin 0.9, Direct Bilirubin 0.2, Aspartate Amino Transf (AST/SGOT) 19, Alanine Aminotransferase (ALT/SGPT) 31, Alkaline Phosphatase 64, Total Creatine Kinase 83, Creatine Kinase MB 1.4, Creatine Kinase MB Relative Index 1.69, Troponin I < 0.02, C-Reactive Protein, Quantitative 3.61H, BF-Ocw-V-Type Natriur etic Peptide 1563H, Total Protein 7.3, Albumin 3.4, Albumin/Globulin Ratio 0.9, Thyroid Stimulating Hormone (TSH) 2.610, Thyroxine (T4) 6.4 12/15/20 21:27: CBC/BMP Laboratory Tests 12/15/20 19:54 Microbiology Microbiology 12/15/20 Blood Culture, Received Pending 12/15/20 Blood Culture, Received Pending Home Medications Scheduled Apixaban (Eliquis) 2.5 Mg Tablet, 2.5 MG PO BID Aspirin (Aspirin EC) 81 Mg Tablet.dr, 81 MG PO DAILY Atorvastatin Calcium (Atorvastatin Calcium) 80 Mg Tablet, 40 MG PO DAILY Calcium Carbonate (Calcium Carbonate) 600 Mg Tablet, 600 MG PO DAILY Cholecalciferol (Vitamin D3) (Vitamin D-400) 10 Mcg Tablet, 10 MCG PO DAILY Cider Vinegar (Apple Cider Vinegar) 300 Mg Tablet, 300 MG PO DAILY Cyanocobalamin (Vitamin B-12) (Vitamin B-12) 500 Mcg Tablet, 500 MCG PO DAILY Ferrous Gluconate (Ferrous Gluconate) 324 Mg Tablet, 324 TAB PO BID Finasteride (Finasteride) 5 Mg Tablet, 5 MG PO QHS Glipizide (Glipizide) 5 Mg Tablet, 5 MG PO BID Magnesium (Magnesium) 250 Mg Tablet, 250 MG PO DAILY Metoprolol Succinate (Metoprolol Succinate) 50 Mg Tab.er.24h, 75 MG PO DAILY Multivitamins (Thera M Plus Tablet) 1 Each Tablet, 1 TAB PO DAILY Spironolactone (Spironolactone) 25 Mg Tablet, 25 MG PO BID Tamsulosin HCl (Flomax) 0.4 Mg Capsule, 0.4 MG PO QHS Torsemide (Torsemide) 20 Mg Tablet, 40 MG PO QAM Torsemide (Torsemide) 20 Mg Tablet, 20 MG PO QPM Ubidecarenone (Coenzyme Q10) 200 Mg Capsule, 200 MG PO DAILY Vitamin B Complex (Vitamin B Complex) 1 Each Tablet, 1 TAB PO DAILY Allergies Coded Allergies: No Known Drug Allergies (Verified Allergy, Unknown, 06/19/20) GME ATTESTATION GME ATTESTATION My faculty preceptor for this patient encounter was physically present during the encounter and was fully available. All aspects of the patient interview, examination, medical decision making process, and medical care plan development were reviewed and approved by the faculty preceptor. The faculty preceptor is aware and concurs with the plan as stated in the body of this note and will attest to such by his/her cosignature. ATTENDING NOTE time of service 950pm I reviewed the note, discussed the case with and agree with the findings as documented with the following additions. is an 85 yr old M w M w a hx of DM2, obesity, ZEE, HTN, DLP, CKD4, chronic CAD s/p [place] w stent, probable chronic HFpEF (based on a H2PEF score of 5 w elevated BNP), biatrial enlargement and Pulm HTN who presented w c/o BLE swelling but denied dyspnea, denied dyspnea w exertion, denied cough, denied PND & denied chest pain; he will be admitted for management of BLE 2/2 venous insufficiency. - we will ask his RN to elevate his legs / switch to IV lasix and ask the day time team to consult PT for lymphedema wraps rest per 's H&P MARIA LUISA SEAY DO Dec 15, 2020 21:56 SAURABH GREEN MD Dec 15, 2020 22:46
[2020-12-15] MEDS ORDERED: MAGN250T22 PO (22:50)
[2020-12-15] MEDS ORDERED: APPL300T4 PO (22:50)
[2020-12-15] MEDS ORDERED: HOME MED LIST COMPLETE! XX SCH (22:55)
[2020-12-15] MEDS ORDERED: FUROSEMIDE 40MG/4ML VIAL (J1940) IV ONE (23:05)
[2020-12-16] MEDS ORDERED: CLINDAMYCIN 600 MG in IV 1 EA IV SCH ×2
[2020-12-16 01:00] VITALS: BP 150/86
[2020-12-16] MEDS: SPIRONOLACTONE 25 MG TAB PO SCH ×3 (02:15→20:54)
[2020-12-16] MEDS: APIXABAN 2.5 MG TAB (ELIQUIS) PO SCH ×3 (02:15→20:54)
[2020-12-16] MEDS: TAMSULOSIN 0.4 MG CAP PO SCH ×2 (02:16→20:54)
[2020-12-16] MEDS: FINASTERIDE 5 MG TAB PO SCH ×2 (02:16→20:54)
[2020-12-16] MEDS: CLINDAMYCIN 600 MG in IV 1 EA IV SCH ×2 (02:17→09:56)
[2020-12-16 06:00] VITALS: BP 121/53
[2020-12-16] MEDS ORDERED: HumaLOG INSULIN (NovoLOG) PER UNIT SC SCH (07:30)
[2020-12-16] MEDS ORDERED: FUROSEMIDE 40MG/4ML VIAL (J1940) IV SCH ×2 (09:00)
[2020-12-16] MEDS ORDERED: METOPROLOL SUCC (TopROL XL) 50MG **XL** TAB PO SCH (09:00)
[2020-12-16] MEDS: ASPIRIN 81MG ENTERIC TABLET PO SCH (09:16)
[2020-12-16] MEDS: ATORVASTATIN 20 MG TAB PO SCH (09:16)
[2020-12-16] MEDS: FERROUS GLUCONATE 324 MG TAB PO SCH ×2 (09:16→20:54)
[2020-12-16] MEDS: FUROSEMIDE 100MG/10ML VIAL (J1940) IV SCH ×2 (09:17→17:56)
--- NOTE | 2020-12-16 11:36 | IPNPDOC ---
Subjective Date Seen The patient was seen on 12/16/20. Subjective Chief Complaint/HPI No acute events overnight. Patient comfortable sitting up in bed this morning. Reports that the leg swelling has gone down significantly. Reports that had fluid-filled blisters on both the legs which ruptured so there is raw skin there. Objective Physical Examination General Exam: Positive: Alert, Cooperative, No Acute Distress Eye Exam: Positive: PERRLA, Conjunctiva & lids normal, EOMI; Negative: Sclera icteric ENT Exam: Positive: Atraumatic, Mucous membr. moist/pink, Pharynx Normal Neck Exam: Positive: Supple; Negative: JVD, thyromegaly Chest Exam: Positive: Clear to auscultation, Normal air movement Heart Exam: Positive: Rate Normal, Regular Rhythm, Normal S1, Normal S2; Negative: Murmurs, Rubs Abdomen Exam: Positive: Normal bowel sounds, Soft; Negative: Tenderness Extremity Exam: Negative: Clubbing, Cyanosis, Edema Skin Exam: Positive: Breakdown (There is skin breakdown on both legs from ruptured blisters), Other skin issue (Bilateral chronic venous stasis dermatitis and stasis over with lymphedematous changes) Psych Exam: Positive: Memory Intact, Oriented x 3 Assessment /Plan Assessment Patient is an 85 year old male follows at [place] with past medical history of morbid obesity, ZEE noncompliant with CPAP, CKD, hypertension, A. fib, BPH, CHF with preserved EF, dyslipidemia, CAD status post [place] and placement of 1 stent, type 2 diabetes, chronic anemia, iron deficiency who presented to the ED with chief complaint of bilateral lower extremity redness and swelling at the urging of his family physician at the [place]. He was treated with doxycycline by his PMD for several days for cellulitis without any change in the appearance of his legs which has been the same for the past 3 months. He went for a follow-up with his PMD and was instructed to come to the ED. In the emergency department he had a negative bilat LE U/S, mildly elevated WBC count, mildly elevated CRP, and a Pro BNP that is lower than what it was on discharge from the hospital in June 2020. He states his weights at home have been about the same and he checks them intermittently (yesterday he was 285, but states he was 291 at the [place]). He was started on ceftaroline out of concern for RLE cellulitis with outpatient tx failure and the hospitalist service was contacted for admission. Cellulitis ruled out will dc antibiotics. Bilateral LE edema With stasis dermatitis, stasis rubor and lymphedema There is no cellulitis. Will DC antibiotic IV lasix to optimize fluid status, elevated bilateral LE, compression stockings. Low sodium diet Daily weight CKD stage IV Creatinine is currently at baseline Nephro consultation, recently seen by nephrology and outpatient and medications have been changed. ZEE States in the last 2 months he has maybe used it about a dozen times but is trying to get better about using it. On 13 cm H20 A. fib Continue home Eliquis and metoprolol BPH Continue home finasteride, Flomax CHFpEF June 2020 echo largely inconclusive however grossly normal LV systolic functioning and possible diastolic dysfunction with possible elevated pulmonary artery pressures and definitive biatrial enlargement. 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 iron deficiency Normal ferritin and iron levels as of 12/26 continue PO iron supplementation History of CAD status post stent Continue baby aspirin, atorvastatin, metoprolol Diabetes Continue glipizide BPH Continue finasteride and tamsulosin Plan/VTE VTE Prophylaxis Ordered?: Yes VS, I&O, 24H, Fishbone Vital Signs/I&O Vital Signs Date Time Temp Pulse Resp B/P (MAP) Pulse Ox O2 Delivery O2 Flow Rate FiO2 12/16/20 06:00 98.2 66 16 121/53 (75) 95 Room Air I&O- Last 24 Hours up to 6 AM 12/16/20 05:59 Intake Total 300 ml Output Total 800 ml Balance -500 ml Laboratory Data 24H LABS Laboratory Tests 2 12/15/20 19:54: Immature Granulocyte % (Auto) 0.5, Neutrophils (%) (Auto) 74.3H, Lymphocytes (%) (Auto) 11.2L, Monocytes (%) (Auto) 11.1H, Eosinophils (%) (Auto) 2.2, Basophils (%) (Auto) 0.7, Neutrophils # (Auto) 8.0, Lymphocytes # (Auto) 1.2L, Monocytes # (Auto) 1.2H, Eosinophils # (Auto) 0.2, Basophils # (Auto) 0.1, Nucleated Red Blood Cells % (auto) 0.0, Erythrocyte Sedimentation Rate 71H, Anion Gap 4L, Glomerular Filtration Rate 27.1L, Lactic Acid Level 0.9, Calcium Level 9.2, Total Bilirubin 0.9, Direct Bilirubin 0.2, Aspartate Amino Transf (AST/SGOT) 19, Alanine Aminotransferase (ALT/SGPT) 31, Alkaline Phosphatase 64, Total Creatine Kinase 83, Creatine Kinase MB 1.4, Creatine Kinase MB Relative Index 1.69, Troponin I < 0.02, C-Reactive Protein, Quantitative 3.61H, ZP-Ikv-F-Type Natriuretic Peptide 1563H, Total Protein 7.3, Albumin 3.4, Albumin/Globulin Ratio 0.9, Thyroid Stimulating Hormone (TSH) 2.610, Thyroxine (T4) 6.4 12/15/20 21:27: Coronavirus (COVID-19)(PCR) NEGATIVE, Influenza Type A (RT-PCR) NEGATIVE, Influenza Type B (RT-PCR) NEGATIVE, Respiratory Syncytial Virus (PCR) NEGATIVE 12/16/20 01:52: Bedside Glucose (Misc Panel) 105 12/16/20 02:38: Methicillin-Resist S.aureus DNA PCR NOT DETECTED 12/16/20 05:47: Bedside Glucose (Misc Panel) 144H CBC/BMP Laboratory Tests 12/15/20 19:54 Microbiology Microbiology 12/15/20 Blood Culture, Received Pending 12/15/20 Blood Culture, Received Pending Maribeth Bedoya MD Dec 16, 2020 07:51
[2020-12-16 14:00] VITALS: BP 129/68
[2020-12-16 17:55] VITALS: BP 120/55
[2020-12-16] MEDS: glipiZIDE (GLUCOTROL) 5 MG TAB PO SCH (17:56)
[2020-12-16 22:00] VITALS: BP 135/60
[2020-12-17 05:03] LABS: BASO # 0.1 10^3/uL (0.0-0.2); BASO % 0.8 % (0.0-1.0); EOS # 0.3 10^3/uL (0.0-0.5); EOS % 3.3 % (0.0-3.0); HEMATOCRIT 30.7 % (42.0-52.0); HEMOGLOBIN 9.8 g/dl (13.5-17.5); LYMPH # 1.1 10^3/uL (1.5-5.0); LYMPH % 13.6 % (24.0-44.0); MEAN CORPUSCULAR HEMOGLOBIN 26.8 pg (27.0-33.0); MEAN CORPUSCULAR HGB CONC 31.9 g/dl (32.0-36.5); MEAN CORPUSCULAR VOLUME 84.1 fl (80.0-96.0); MONO # 1.1 10^3/uL (0.0-0.8); MONO % 13.5 % (2.0-8.0); NEUTROPHILS # 5.3 10^3/uL (1.5-8.5); NEUTROPHILS % 68.4 % (36.0-66.0); PLATELET COUNT, AUTOMATED 173 10^3/uL (150-450); RED BLOOD COUNT 3.65 10^6/uL (4.30-6.10); WHITE BLOOD COUNT 7.8 10^3/uL (4.0-10.0)
[2020-12-17 05:31] LABS: CALCIUM LEVEL 8.6 MG/DL (8.8-10.2); CREATININE FOR GFR 2.9 MG/DL (0.70-1.30); GLOMERULAR FILTRATION RATE 22.2 (>35); POTASSIUM SERUM 4.6 MEQ/L (3.5-5.1)
[2020-12-17 06:00] VITALS: BP 134/61
[2020-12-17] MEDS: ASPIRIN 81MG ENTERIC TABLET PO SCH (08:14)
[2020-12-17] MEDS: glipiZIDE (GLUCOTROL) 5 MG TAB PO SCH ×2 (08:14→17:17)
[2020-12-17] MEDS: FERROUS GLUCONATE 324 MG TAB PO SCH ×2 (08:14→21:43)
[2020-12-17] MEDS: ATORVASTATIN 20 MG TAB PO SCH (08:18)
[2020-12-17] MEDS: APIXABAN 2.5 MG TAB (ELIQUIS) PO SCH ×2 (08:18→21:43)
[2020-12-17] MEDS: METOPROLOL SUCC *XL* 25MG TAB (TopROL *XL*) PO SCH (08:20)
--- NOTE | 2020-12-17 11:25 | IPNPDOC ---
Subjective Date Seen The patient was seen on 12/17/20. Subjective Chief Complaint/HPI No complaints this morning. Leg swelling is significantly reduced. No fever or chills. Patient feels well. Objective Physical Examination General Exam: Positive: Alert, Cooperative, No Acute Distress Eye Exam: Positive: PERRLA, Conjunctiva & lids normal, EOMI; Negative: Sclera icteric ENT Exam: Positive: Atraumatic, Mucous membr. moist/pink, Pharynx Normal Neck Exam: Positive: Supple; Negative: JVD, thyromegaly Chest Exam: Positive: Clear to auscultation, Normal air movement Heart Exam: Positive: Rate Normal, Regular Rhythm, Normal S1, Normal S2; Negative: Murmurs, Rubs Abdomen Exam: Positive: Normal bowel sounds, Soft; Negative: Tenderness Extremity Exam: Negative: Clubbing, Cyanosis, Edema Skin Exam: Positive: Breakdown (There is skin breakdown on both legs from ruptured blisters), Other skin issue (Bilateral chronic venous stasis dermatitis and stasis over with lymphedematous changes) Psych Exam: Positive: Memory Intact, Oriented x 3 Assessment /Plan Assessment Patient is an 85 year old male follows at [place] with past medical history of morbid obesity, ZEE noncompliant with CPAP, CKD, hypertension, A. fib, BPH, CHF with preserved EF, dyslipidemia, CAD status post [place] and placement of 1 stent, type 2 diabetes, chronic anemia, iron deficiency who presented to the ED with chief complaint of bilateral lower extremity redness and swelling at the urging of his family physician at the [place]. He was treated with doxycycline by his PMD for sev eral days for cellulitis without any change in the appearance of his legs which has been the same for the past 3 months. He went for a follow-up with his PMD and was instructed to come to the ED. In the emergency department he had a negative bilat LE U/S, mildly elevated WBC count, mildly elevated CRP, and a Pro BNP that is lower than what it was on discharge from the hospital in June 2020. He states his weights at home have been about the same and he checks them intermittently (yesterday he was 285, but states he was 291 at the [place]). He was started on ceftaroline out of concern for RLE cellulitis with outpatient tx failure and the hospitalist service was contacted for admission. Cellulitis ruled out will dc antibiotics. Bilateral LE edema With stasis dermatitis, stasis rubor and lymphedema There is no cellulitis. Will DC antibiotic IV lasix to optimize fluid status, elevated bilateral LE, compression stockings. Low sodium diet Daily weight CKD stage IV Creatinine slightly higher than baseline likely due to aggressive diuresis. Will hold diuretics today Nephro consultation, recently seen by nephrology and outpatient and medications have been changed. ZEE States in the last 2 months he has maybe used it about a dozen times but is trying to get better about using it. On 13 cm H20 A. fib Continue home Eliquis and metoprolol BPH Continue home finasteride, Flomax CHFpEF June 2020 echo largely inconclusive however grossly normal LV systolic functioning and possible diastolic dysfunction with possible elevated pulmonary artery pressures and definitive biatrial enlargement. 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 iron deficiency Normal ferritin and iron levels as of 12/26 continue PO iron supplementation History of CAD status post stent Continue baby aspirin, atorvastatin, metoprolol Diabetes Continue glipizide BPH Continue finasteride and tamsulosin Plan/VTE VTE Prophylaxis Ordered?: Yes VS, I&O, 24H, Fishbone Vital Signs/I&O Vital Signs Date Time Temp Pulse Resp B/P (MAP) Pulse Ox O2 Delivery O2 Flow Rate FiO2 12/17/20 06:00 97.6 73 18 134/61 (85) 97 Room Air I&O- Last 24 Hours up to 6 AM 12/17/20 06:00 Intake Total 1020 ml Output Total 2175 ml Balance -1155 ml Laboratory Data 24H LABS Laboratory Tests 2 12/17/20 04:11: Immature Granulocyte % (Auto) 0.4, Neutrophils (%) (Auto) 68.4H, Lymphocytes (%) (Auto) 13.6L, Monocytes (%) (Auto) 13.5H, Eosinophils (%) (Auto) 3.3H, Basophils (%) (Auto) 0.8, Neutrophils # (Auto) 5.3, Lymphocytes # (Auto) 1.1L, Monocytes # (Auto) 1.1H, Eosinophils # (Auto) 0.3, Basophils # (Auto) 0.1, Nucleated Red Blood Cells % (auto) 0.0, Anion Gap 9, Glomerular Filtration Rate 22.2L, Calcium Level 8.6L CBC/BMP Laboratory Tests 12/17/20 04:11 Microbiology Microbiology 12/15/20 Blood Culture - Preliminary, Resulted No growth after 24 hours . All specim... 12/15/20 Blood Culture - Preliminary, Resulted No growth after 24 hours . All specim... Maribeth Bedoya MD Dec 17, 2020 11:25
[2020-12-17 14:00] VITALS: BP 140/68
[2020-12-17] MEDS ORDERED: TORSEMIDE 20 MG TAB PO SCH (17:00)
--- NOTE | 2020-12-17 17:22 | CR ---
CONSULTATION DATE: 12/16/2020 REQUESTING PHYSICIAN: Maribeth Bedoya MD REASON FOR CONSULTATION: CKD stage 4 with fluid overload in setting of diastolic congestive heart failure. HISTORY OF PRESENT ILLNESS: Mr. Mariano Harden is an 85-year-old male with a past medical history of CKD stage 4 (sees Dr. Sun in the nephrology office) and also past medical history of diastolic congestive heart failure, coronary artery disease, type 2 diabetes mellitus, A fib, obesity and other comorbid conditions mentioned below. The patient presented to the emergency room yesterday with complaint of worsening extremity swelling and erythema, states he saw his family physician recently through [facility] and has been on oral antibiotics but has not had any improvement in his lower extremity cellulitis. Prior outpatient treatment includes doxycycline and Keflex and his primary care asked him to come to the emergency room for further management of cellulitis that failed outpatient treatment. The patient reports he is compliant with his oral diuretics but is unaware of the name or the dosing. He also tells me he does not follow any sort of fluid restriction at home. He denies fevers or chills. In the emergency room, he had a negative Doppler of his lower extremities and he was admitted and started on IV Ceftaroline. A nephrology evaluation was requested as admission creatinine was 2.4 which was in patient's baseline range and BNP was 1563. The patient received a couple doses of IV Lasix already and has had good urine output. PAST MEDICAL HISTORY: 1. CKD stage 4. 2. Diastolic congestive heart failure. 3. Obesity. 4. Sleep apnea. 5. Hypertension. 6. Atrial fibrillation. 7. BPH. 8. Dyslipidemia. 9. History of myocardial infarction with history of one stent. 10. Coronary artery disease. 11. Type 2 diabetes mellitus. PAST SURGICAL HISTORY: Coronary artery stenting. ALLERGIES: No known drug allergies. SOCIAL HISTORY: He is an ex-smoker, no alcohol or drug use. FAMILY HISTORY: Denies family history of renal failure. HOME MEDICATIONS: The patient is unaware of his home medications. Medication list is reviewed and shows Eliquis 2.5 mg p.o. b.i.d., aspirin 81 mg daily, atorvastatin 40 mg p.o. daily, calcium carbonate 600 mg p.o. daily, vitamin B12 500 mcg p.o. daily, ferrous gluconate 324 mg p.o. b.i.d., Finasteride 5 mg p.o. q.h.s., Glipizide 5 mg p.o. b.i.d, magnesium 250 mg p.o. daily, metoprolol extended release 75 mg p.o. daily, spironolactone 25 mg p.o. twice daily, Flomax 0.4 mg p.o. q.h.s., Torsemide 40 mg in the morning, 20 mg in the evening, vitamin B complex one table daily. REVIEW OF SYSTEMS: Constitutional: He denies fevers or chills. Eyes: Denies visual changes or tearing. ENT: Denies rhinorrhea, epistaxis or odynophagia. Cardiac: He has a history of coronary artery disease and also has a history of atrial fibrillation on chronic anticoagulation along with diastolic dysfunction. Respiratory: Reports sleep apnea. Does not use a CPAP. Genitourinary: Denies dysuria or hematuria. Patient reports history of BPH. Gastrointestinal: Denies nausea or vomiting or diarrhea. Endocrine: Reports diabetes mellitus and obesity. Hematologic: Reports chronic anticoagulant use and iron deficiency anemia. Neurologic: Denies seizure or syncope. Musculoskeletal: Reports lower extremity cellulitis and swelling. Remainder of review of systems is negative or as per HPI. PHYSICAL EXAMINATION: Vital signs: Temperature 97.6, pulse 72, respiratory rate 16, blood pressure 121/53, saturating 95% on room air. Intake today so far is one liter. Urine output today is already more than three liters. Weight in the bed scale today is 129.2 kg. General: Patient is seen awake, alert, oriented, comfortable, lying in bed. Elderly male in no distress. HEENT: Extraocular muscles are intact. Tongue is moist. Neck is supple. Jugular veins are not elevated. Heart: Heart sounds are regular, S1, S2. There are dressings over his legs bilaterally and there appears to be around 1+ edema at the most. Lungs: Clear to auscultation, no crackle or rale. He is comfortable on room air. Abdomen: Soft and obese and nontender. Extremities: There are dressings on both legs and chronic venous stasis dermatitis changes and there is only mild peripheral edema. LABORATORY STUDIES: White count 10.7, hemoglobin 10.5, platelets 189. Sodium 136, potassium 4.9, bicarbonate 30. BUN 55, creatinine 2.4, lactic acid 0.9. BNP 1500. Microbiology: Two sets of blood cultures are pending. Chest x-ray done yesterday shows no acute infiltrates. Venous duplex done yesterday of the bilateral lower extremities shows no DVT. INPATIENT MEDICATIONS: The patient is currently on Eliquis 2.5 mg p.o. b.i.d., aspirin 81 mg p.o. daily, atorvastatin 40 mg p.o. daily, ferrous gluconate 324 mg p.o. b.i.d., finasteride 5 mg p.o. q.h.s., Lasix 60 mg IV b.i.d., metoprolol 75 mg p.o. daily, spironolactone 25 mg p.o. b.i.d., Flomax 0.4 mg p.o. q.h.s. PROBLEMS: 1. CKD stage 4. The patient's renal function on admission is creatinine 2.4 which is stable within his baseline range. He has a history of BPH and he continues on Finasteride and Flomax. He denies any symptoms of urinary retention. There is mild hypervolemia on exam but he is responding very well to IV diuretics and I feel he will be able to switch back over to oral diuretic regimen within 1 or 2 days. His most recent renal imaging was kidney ultrasound in September, which was negative for obstruction at that time. Historic renal labs in the [facility] go back to June of this year and most of his creatinines are in the mid 2 range. 2. Diastolic congestive heart failure. The patient has only mild peripheral edema at this point in the setting of chronic venous stasis changes. He has responded very well to IV Lasix, already made more than three liters of urine today and I feel he will be ready to switch back to oral diabetic regimen within 1-2 days. He does not follow a fluid restriction at home but is currently on a two liter fluid restriction in the hospital. 3. History of BPH. Patient continues on finasteride and Flomax. He denies symptoms of urinary retention. Renal imaging in September of this year was likewise negative for obstructive uropathy. 4. Chronic anemia in the setting of CKD stage 4. Iron studies from the ten days ago are noted with transferrin saturation of 26%. Patient is on oral iron supplementation. There is no need for erythropoietin agent at this time. 5. Atrial fibrillation. Patient is rate controlled with metoprolol and anticoagulated with Eliquis. 6. Hypertension. Blood pressures are adequately controlled. The patient is receiving IV Lasix metoprolol and he is also on spironolactone. Potassium is 4.9 on the labs today but given his vigorous urine output, I do not think that his potassium will rise at this point. Thank you for involving me in the care of Mr. Harden. I will follow him along with you.
--- NOTE | 2020-12-17 17:56 | IPN ---
NEPHROLOGY PROGRESS NOTE DATE: 12/17/2020 SUBJECTIVE: Mr. Hardne is seen and examined this morning at the bedside. He has no complaints for me. He reports he has noticed increase in urine output. He also reports that when the dressings are off his legs, he appreciates that the leg swelling is markedly improved. OBJECTIVE: VITAL SIGNS: Temperature 98.2, pulse 66, respiratory rate 16, blood pressure 121/53, saturating 95% on room air. INTAKE AND OUTPUT: Intake yesterday was 1.3 liters. Urine output was 3.5 liters. PHYSICAL EXAMINATION: GENERAL APPEARANCE: The patient is seen awake, alert, oriented, elderly male, lying in bed in no distress. HEENT: The extraocular muscles are intact. Tongue is moist. NECK: Supple. Jugular veins are not elevated. HEART: Regular, S1, S2. There are dressings on his legs and they come up almost to the knee and edema seems appreciably less. LUNGS: Clear to auscultation. No crackles or rales. He is comfortable on room air. ABDOMEN: Obese, soft and nontender. NEUROLOGICAL: He is awake, alert and oriented x3. PSYCHIATRIC: Appropriate mood and affect. SKIN: I did not examine the legs. I did not remove the dressings. LABORATORY STUDIES: Sodium 136, potassium 4.6, bicarbonate 25, BUN 65, creatinine 2.9, hemoglobin 9.8, platelet count 173. Blood cultures no growth for 24 hours times two sets. INPATIENT MEDICATIONS: The patient is off of IV Lasix and I switched him over to Torsemide 20 mg p.o. twice daily to start tomorrow morning. PROBLEMS: 1. Chronic kidney disease stage 4 the patient's baseline renal function is around mid 2's. His creatinine did bump up slightly from 2.4 to 2.9 over the past couple of days in the setting of IV diuresis and optimization of volume status. He is off of IV Lasix now and I am switching him over to oral Torsemide. First dose will be on Friday morning. His renal function is fairly close to his usual baseline. He is also on oral Spironolactone as well twice daily and serum potassium levels have been stable. 2. Diastolic congestive heart failure most recent echocardiogram June 2020 reviewed with preserved left ventricular ejection fraction and unable to evaluate diastolic function because of underlying atrial fibrillation, but the patient does have severe bi-atrial enlargement and most likely has diastolic congestive heart failure. At home he takes Torsemide and Spironolactone. He has been diuresed the past 2 days with IV Lasix and has had excellent urine output. IV Lasix is now being stopped and the patient will continue with oral Torsemide. The first dose is scheduled for Friday morning along with Spironolactone and he is on a 2 liter fluid restriction. 3. Anemia in the setting of chronic kidney disease stage 4 - hemoglobin on today's labs is down to 9.8. The patient has replete iron stores (reviewed iron panel from December 06). There is no need for erythropoietin stimulating agent at present time. 4. Hypertension - blood pressures are optimally controlled with combination diuretic along with Metoprolol. 5. Benign prostatic hypertrophy - The patient has no lower tract symptoms with both Finasteride and Flomax.
--- NOTE | 2020-12-17 19:50 | ECGEPIP ---
[facility] - ED Test Date: 2020-12-15 Pat Name: CHARY NORTH Department: Room: [place] [address] Gender: Male Plant And Maintenance Technician: Naye GONCALVES : 1935 Requested By: MASSIMO PECK Order Number: [id number] Reading MD: Mónica Pennington Measurements Intervals [place] Rate: 63 P: NV: QRS: -26 QRSD: 92 T: 71 QT: 436 QTc: 446 Interpretive Statements Atrial fibrillation delayed r progression increased rate 06/30/20 Electronically Signed on 12-17-2020 19:49:37 EDT by Mónica Pennington
[2020-12-17] MEDS: TAMSULOSIN 0.4 MG CAP PO SCH (21:43)
[2020-12-17] MEDS: FINASTERIDE 5 MG TAB PO SCH (21:43)
[2020-12-17 21:48] VITALS: BP 142/68
[2020-12-18 06:24] LABS: BASO # 0.1 10^3/uL (0.0-0.2); BASO % 0.9 % (0.0-1.0); EOS # 0.3 10^3/uL (0.0-0.5); EOS % 4.7 % (0.0-3.0); HEMATOCRIT 32.7 % (42.0-52.0); HEMOGLOBIN 10.4 g/dl (13.5-17.5); LYMPH # 1.2 10^3/uL (1.5-5.0); LYMPH % 17.6 % (24.0-44.0); MEAN CORPUSCULAR HEMOGLOBIN 27.2 pg (27.0-33.0); MEAN CORPUSCULAR HGB CONC 31.8 g/dl (32.0-36.5); MEAN CORPUSCULAR VOLUME 85.6 fl (80.0-96.0); MONO # 0.9 10^3/uL (0.0-0.8); MONO % 13.1 % (2.0-8.0); NEUTROPHILS # 4.3 10^3/uL (1.5-8.5); NEUTROPHILS % 63.3 % (36.0-66.0); PLATELET COUNT, AUTOMATED 185 10^3/uL (150-450); RED BLOOD COUNT 3.82 10^6/uL (4.30-6.10); WHITE BLOOD COUNT 6.8 10^3/uL (4.0-10.0)
[2020-12-18 06:37] VITALS: BP 136/67
[2020-12-18 06:43] LABS: CALCIUM LEVEL 8.6 MG/DL (8.8-10.2); CREATININE FOR GFR 2.73 MG/DL (0.70-1.30); GLOMERULAR FILTRATION RATE 23.8 (>35); POTASSIUM SERUM 4.8 MEQ/L (3.5-5.1)
[2020-12-18] MEDS: APIXABAN 2.5 MG TAB (ELIQUIS) PO SCH (08:51)
[2020-12-18] MEDS: ATORVASTATIN 20 MG TAB PO SCH (08:51)
[2020-12-18] MEDS: ASPIRIN 81MG ENTERIC TABLET PO SCH (08:51)
[2020-12-18] MEDS: TORSEMIDE 20 MG TAB PO SCH ×2 (08:51→16:35)
[2020-12-18] MEDS: FERROUS GLUCONATE 324 MG TAB PO SCH (08:51)
[2020-12-18 08:52] VITALS: BP 139/71
[2020-12-18] MEDS: METOPROLOL SUCC *XL* 25MG TAB (TopROL *XL*) PO SCH (08:52)
[2020-12-18] MEDS: glipiZIDE (GLUCOTROL) 5 MG TAB PO SCH ×2 (08:59→16:34)
[2020-12-18] MEDS: SPIRONOLACTONE 25 MG TAB PO SCH (09:01)
[2020-12-18] MEDS ORDERED: TORS20TA2 PO (09:13)
--- NOTE | 2020-12-18 13:52 | DS.PDOC ---
Discharge Summary General Date of Admission Dec 15, 2020 at 15:52 Date of Discharge 12/18/20 Discharge Summary PROCEDURES PERFORMED DURING STAY: [None]. DISCHARGE DIAGNOSES: Chronic bilateral venous stasis with stasis dermatitis, stasis rubor and ruptured blisters SECONDARY DIAGNOSIS: Morbid obesity, ZEE noncompliant with CPAP, CKD IV , hypertension, A. fib, BPH, CHF with preserved EF, dyslipidemia, CAD status post MA and placement of 1 stent, type 2 diabetes, chronic anemia, iron deficiency COMPLICATIONS/CHIEF COMPLAINT: Venous Insufficiency Of Both Lower Extremities. HOSPITAL COURSE: Patient is an 85 year old male follows at [facility] with past medical history of morbid obesity, ZEE noncompliant with CPAP, CKD, hypertension, A. fib, BPH, CHF with preserved EF, dyslipidemia, CAD status post MA and placement of 1 stent, type 2 diabetes, chronic anemia, iron deficiency who presented to the ED with chief complaint of bilateral lower extremity redness and swelling at the urging of his family physician at the [facility]. He was treated with doxycycline by his PMD for several days for cellulitis without any change in the appearance of his legs which has been the same for the past 3 months. He went for a follow-up with his PMD and was instructed to come to the ED. In the emergency department he had a negative bilat LE U/S, mildly elevated WBC count, mildly elevated CRP, and a Pro BNP that is lower than what it was on discharge from the hospital in June 2020. He states his weights at home have been about the same and he checks them intermittently (yesterday he was 285, but states he was [address] He was started on ceftaroline out of concern for RLE cellulitis with outpatient tx failure and the hospitalist service was contacted for admission. Bilateral LE edema with stasis dermatitis, stasis rubor and lymphedema and ruptured blisters There is no cellulitis. Continue torsemide and Aldactone. Daily weight and 2 L fluid restriction Evaluated by Dr. Atkinson. For dressing use foam dressing at the areas that are open with Tubigrip. dressing to be changed every other day. Standing venous ultrasound of bilateral lower extremities ordered results to be followed up by Dr. Atkinson and PMD. CKD stage IV Continue with torsemide and Aldactone Nephrology follow up ZEE States in the last 2 months he has maybe used it about a dozen times but is trying to get better about using it. On 13 cm H20 A. fib Continue home Eliquis and metoprolol BPH Continue home finasteride, Flomax CHFpEF June 2020 echo largely inconclusive however grossly normal LV systolic functioning and possible diastolic dysfunction with possible elevated pulmonary artery pressures and definitive biatrial enlargement. Continue home metoprolol Continue torsemide 20 bid and Aldactone 25 bid Chronic anemia due to CKD with iron deficiency Normal ferritin and iron levels as of 12/26 continue PO iron supplementation History of CAD status post stent Continue baby aspirin, atorvastatin, metoprolol Diabetes Continue glipizide BPH Continue finasteride and tamsulosin DISCHARGE MEDICATIONS: Please see below. ALLERGIES: Please see below. PHYSICAL EXAMINATION ON DISCHARGE: VITAL SIGNS: Please see below. General Exam: Positive: Alert, Cooperative, No Acute Distress Eye Exam: Positive: PERRLA, Conjunctiva & lids normal, EOMI; Negative: Sclera icteric ENT Exam: Positive: Atraumatic, Mucous membr. moist/pink, Pharynx Normal Neck Exam: Positive: Supple; Negative: JVD, thyromegaly Chest Exam: Positive: Clear to auscultation, Normal air movement Heart Exam: Positive: Rate Normal, Regular Rhythm, Normal S1, Normal S2; Negative: Murmurs, Rubs Abdomen Exam: Positive: Normal bowel sounds, Soft; Negative: Tenderness Extremity Exam: Negative: Clubbing, Cyanosis, Edema Skin Exam: Positive: Breakdown (There is skin breakdown on both legs from ruptured blisters), Other skin issue (Bilateral chronic venous stasis dermatitis and stasis over with lymphedematous changes) Psych Exam: Positive: Memory Intact, Oriented x 3 LABORATORY DATA: Please see below. ACTIVITY: [As tolerated]. DIET: 2 g sodium, 2 L fluid restriction DISCHARGE PLAN: Home DISPOSITION: . DISCHARGE INSTRUCTIONS: PMD in [address] Atkinson in 1 week ITEMS TO FOLLOWUP ON ON OUTPATIENT: Standing venous ultrasound result DISCHARGE CONDITION: [Stable]. TIME SPENT ON DISCHARGE: 35 minutes. Vital Signs/I&Os Vital Signs Date Time Temp Pulse Resp B/P (MAP) Pulse Ox O2 Delivery O2 Flow Rate FiO2 12/18/20 08:52 78 139/71 12/18/20 06:37 98.0 16 76 Room Air I&O- Last 24 Hours up to 6 AM 12/18/20 06:00 Intake Total 1420 ml Output Total 3475 ml Balance -2055 ml Laboratory Data Labs 24H Laboratory Tests 2 12/18/20 06:01: Immature Granulocyte % (Auto) 0.4, Neutrophils (%) (Auto) 63.3, Lymphocytes (%) (Auto) 17.6L, Monocytes (%) (Auto) 13.1H, Eosinophils (%) (Auto) 4.7H, Basophils (%) (Auto) 0.9, Neutrophils # (Auto) 4.3, Lymphocytes # (Auto) 1.2L, Monocytes # (Auto) 0.9H, Eosinophils # (Auto) 0.3, Basophils # (Auto) 0.1, Nucleated Red Blood Cells % (auto) 0.0, Anion Gap 8, Glomerular Filtration Rate 23.8L, Calcium Level 8.6L CBC/BMP Laboratory Tests 12/18/20 06:01 Microbiology Microbiology 12/15/20 Blood Culture - Preliminary, Resulted No Growth after 48 hours. All Specime... 12/15/20 Blood Culture - Preliminary, Resulted No Growth after 48 hours. All Specime... Discharge Medications Scheduled Apixaban (Eliquis) 2.5 Mg Tablet, 2.5 MG PO BID, (Reported) Aspirin (Aspirin EC) 81 Mg Tablet.dr, 81 MG PO DAILY, (Reported) Atorvastatin Calcium (Atorvastatin Calcium) 80 Mg Tablet, 40 MG PO DAILY, (Reported) Calcium Carbonate (Calcium Carbonate) 600 Mg Tablet, 600 MG PO DAILY, (Reported) Cholecalciferol (Vitamin D3) (Vitamin D-400) 10 Mcg Tablet, 10 MCG PO DAILY, (Reported) Cider Vinegar (Apple Cider Vinegar) 300 Mg Tablet, 300 MG PO DAILY, (Reported) Cyanocobalamin (Vitamin B-12) (Vitamin B-12) 500 Mcg Tablet, 500 MCG PO DAILY, (Reported) Ferrous Gluconate (Ferrous Gluconate) 324 Mg Tablet, 324 TAB PO BID, (Reported) Finasteride (Finasteride) 5 Mg Tablet, 5 MG PO QHS, (Reported) Glipizide (Glipizide) 5 Mg Tablet, 5 MG PO BID, (Reported) Magnesium (Magnesium) 250 Mg Tablet, 250 MG PO DAILY, (Reported) Metoprolol Succinate (Metoprolol Succinate) 50 Mg Tab.er.24h, 75 MG PO DAILY, (Reported) Multivitamins (Thera M Plus Tablet) 1 Each Tablet, 1 TAB PO DAILY, (Reported) Spironolactone (Spironolactone) 25 Mg Tablet, 25 MG PO BID, (Reported) Tamsulosin HCl (Flomax) 0.4 Mg Capsule, 0.4 MG PO QHS, (Reported) Torsemide (Torsemide) 20 Mg Tablet, 20 MG PO QPM, (Reported) Torsemide (Torsemide) 20 Mg Tablet, 20 MG PO QAM Ubidecarenone (Coenzyme Q10) 200 Mg Capsule, 200 MG PO DAILY, (Reported) Vitamin B Complex (Vitamin B Complex) 1 Each Tablet, 1 TAB PO DAILY, (Reported) Allergies Coded Allergies: No Known Drug Allergies (Verified Allergy, Unknown, 06/19/20) Maribeth Bedoya MD Dec 18, 2020 13:51
[2020-12-18 14:00] VITALS: BP 133/69
[2020-12-18 18:29] LABS: PERCENT SATURATION 26.7 % (19.7-50.0)
--- NOTE | 2020-12-18 20:33 | IPN ---
NEPHROLOGY PROGRESS NOTE DATE: 12/18/2020 SUBJECTIVE: Mr. Harden is seen this morning at his bedside. Nursing staff is opening the dressings on his both lower extremities. I had a chance to look at his legs today. He has an ulcer on the lateral left lower leg without any drainage. He has what looks like chronic erythema and superficial ulcers on his right leg. The patient has been afebrile. Lower extremity edema has improved significantly. He is currently off antibiotics per Infectious Disease recommendations. He is also scheduled for a daily visit with Dr. Atkinson later today. OBJECTIVE: PHYSICAL EXAMINATION: VITAL SIGNS: Temperature 98 degrees Fahrenheit, heart rate 53 per minute, respiratory rate 18 per minute, blood pressure 139/70 mm of mercury and oxygen saturation is 100% on room air. HEENT: His head is atraumatic. NECK: Supple and JVD is not abnormally elevated at present. HEART: Regular. LUNGS: Mostly clear to auscultation. ABDOMEN: Soft and nontender and bowel sounds are normal. EXTREMITIES: Without any cyanosis or clubbing. Lower extremity edema has improved significantly. There is a superficial ulcer on the left lower leg on the lateral side. She has chronic stasis ulcers on the right leg and chronic erythema. NEUROLOGICAL: He is awake, alert and at his baseline mentation. LABORATORY STUDIES: Today's labs show a WBC count of 6.8, hemoglobin 10.4 and hematocrit 32.7, platelet count 185. Sodium 137, potassium 4.8, CO2 25, BUN 57 and creatinine 2.73. Glucose 109 and calcium 8.6. PROBLEMS: 1. Acute kidney injury superimposed on chronic kidney disease the patient has a known history of stage 4 of chronic kidney disease. At present his kidney function is mostly stable with a GFR between 22 and 27 mL per minute. Electrolytes are stable and volume status is well compensated. 2. Congestive heart failure at present his volume status is well compensated and he remains on Torsemide 20 mg twice daily which will be continued. 3. Hypertension - blood pressure has been well controlled on current antihypertensive medications. He is not suitable for adele inhibitor or angiotensin receptor vernon due to advanced chronic kidney disease. 4. Diabetes his diabetes seems to be reasonably well controlled while here in the hospital. He is currently on Glipizide 5 mg daily. 5. Anemia his anemia is stable at present and does not need any urgent intervention. I will check his iron studies to rule out any possibility of iron deficiency. 6. Bilateral lower extremity ulcers - The patient does not seem to have any significant infection and mostly he has chronic stasis. He has been seen by Infectious Disease and antibiotics have been stopped. At present wound care will be performed per recommendations from Dr. Atkinson.
--- NOTE | 2020-12-19 08:33 | CR ---
ADVANCED WOUND CARE CONSULTATION via telemedicine DATE: 12/18/2020 CONSULT REQUESTED BY: Dr. Bedoya REASON FOR CONSULTATION: Wound care suggestions for right and left lower extremity venous stasis disease. HISTORY OF PRESENT ILLNESS: [id number], frail male with a DO NOT RESUSCITATE (DNR) status admitted for bilateral lower extremity gravitational edema associated with bilateral lower extremity venous stasis ulcers. Patient's hemoglobin A1c is 5.6. The left lower extremity shows a wound measuring 2.5 x 2.5 cm. This wound base shows areas of superficial fibrin slough. The drainage is serosanguinous, minimal without odor or erythema involving the periwound. Right lower extremity shows a wound cluster measuring 7.0 x 6.3 cm. Wound base shows granulation tissue with areas of fibrin slough. Wound edges for both right and left extremity wounds are attached. Right lower extremity shows serosanguinous drainage, minimal to moderate. 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 There appears to be bilateral 2+ to 3+ edema. TREATMENT RECOMMENDATIONS: Clean wound with Vashe wound cleanser for 10 minutes. This should be followed by Optifoam dressings and bilateral measured TubiGrip support stockings. Patient should be encouraged to sleep in the bed with mild Trendelenburg position. Bilateral standing venous ultrasounds if possible should be obtained. Patient can be followed up at our wound care center if so desired for further treatment. Wound care telemedicine provides a visual assessment of the wound or wounds without the benefit of physical examination. It can assist with establishing a diagnosis and etiology. This allows for initial treatment plan. As wounds often change it may be necessary to modify the original care. Our recommendation is periodic wound reassessment to monitor treatment. Failure to comply may result in nonhealing of the wound, possible complications and/or a poor outcome. The recommendations given will serve as treatment options. As I will not be following this patient this care plan will require the attending physician to give and signed the orders. Upon discharge outpatient follow-up can be scheduled at our wound care center [facility]
--- NOTE | 2020-12-19 08:53 | REP ---
INDICATION: Standing venous US for venous reflux COMPARISON: None. TECHNIQUE: Vargas scale and color Doppler evaluation using linear high frequency transducer for the evaluation of reflux disease. FINDINGS: Right lower extremity demonstrates superficial collateral vessels below the knee and severe reflux disease. Specifically the proximal greater saphenous vein measures 7.9 mm diameter with reflux duration 3.9 seconds, mid greater saphenous vein measures 12.2 mm diameter with reflux duration 5.5 seconds, and distal greater saphenous vein measures 9.6 mm diameter with reflux duration 3.4 seconds. Left lower extremity demonstrates superficial collateral vessels below the knee with reflux only identified at the distal greater saphenous vein at the knee with the foot flexed measuring 3.6 mm diameter and reflux duration 6.0 seconds. IMPRESSION: Primarily right lower extremity greater saphenous vein reflux with further findings as described above. Reference may be made to ultrasound worksheet for further details. <Electronically signed by Dex Benitez > 12/19/20 8023
== END 2020-12-18 19:02 | disposition home or self-care (01) | DRG 300 ==
LOC: M ED 15:51 → M ED INP 15:52 → ENRESERVDT 23:28 → ENRESERVTM 23:28 → M MSPAV 12-16 00:49
PROVIDERS: ADMIT Internal Medicine; ATTEND Internal Medicine Nephrology
DX: I87.2 Venous insufficiency (chronic) (peripheral) (principal); I50.32 Chronic diastolic (congestive) heart failure; N18.4 Chronic kidney disease, stage 4 (severe); I13.0 Hypertensive heart and chronic kidney disease with heart failure and stage 1 through stage 4 chronic kidney disease, or unspecified chronic kidney disease; E66.01 Morbid (severe) obesity due to excess calories; G47.33 Obstructive sleep apnea (adult) (pediatric); Z91.19 Patient's noncompliance with other medical treatment and regimen; I48.91 Unspecified atrial fibrillation; N40.0 Benign prostatic hyperplasia without lower urinary tract symptoms; Z66 Do not resuscitate; E78.5 Hyperlipidemia, unspecified; I25.2 Old myocardial infarction; I25.10 Atherosclerotic heart disease of native coronary artery without angina pectoris; Z95.5 Presence of coronary angioplasty implant and graft; E11.22 Type 2 diabetes mellitus with diabetic chronic kidney disease; Z87.891 Personal history of nicotine dependence; D63.1 Anemia in chronic kidney disease; Z79.01 Long term (current) use of anticoagulants; Z79.82 Long term (current) use of aspirin; Z79.84 Long term (current) use of oral hypoglycemic drugs; Z79.899 Other long term (current) drug therapy; Z68.39 Body mass index [BMI] 39.0-39.9, adult; I89.0 Lymphedema, not elsewhere classified; Z20.822 Contact with and (suspected) exposure to COVID-19

== ENCOUNTER → 2021-06-07 | Outpatient (CLI) | payer OTHER ==
[~2021-06-07] MED LIST changes: +APPL300T4 PO; +ELIQ2.5T PO; +FERR324T21 PO; -LEVO250T12 PO; +LEVO250T3 PO; +LIDOCAINE 1% MDV 20ML VIAL As Ordered ONE; +LIDOCAINE 2% MDV 20ML VIAL As Ordered ONE; +MAGN250T22 PO; +METO1TAB7 PO; +MIDAZOLAM INJ 2MG/2ML VIAL (J2250 PER 1MG) As Ordered ONE; +NS 1,000 ML IV SCH; +PROMETHAZINE INJ 25 MG/ML VIAL (J2550) As Ordered ONE; +diphenhydrAMINE 50MG/ML VIAL (J1200) As Ordered ONE; +fentaNYL 100 MCG/2 ML INJECTION As Ordered ONE
[2021-06-07 13:00] VITALS: BP 187/81
== END ==
LOC: M IRPRO 09:35
PROVIDERS: ATTEND Radiology Diagnostic Radiology
DX: I83.019 Varicose veins of right lower extremity with ulcer of unspecified site (principal); L97.919 Non-pressure chronic ulcer of unspecified part of right lower leg with unspecified severity; I87.2 Venous insufficiency (chronic) (peripheral); Z79.82 Long term (current) use of aspirin; Z79.899 Other long term (current) drug therapy
CPT/HCPCS: 36465; 36478; 76940; J2250; J3010

== ENCOUNTER → 2021-06-13 | Outpatient (CLI) | payer OTHER ==
[~2021-06-13] MED LIST changes: -LIDOCAINE 1% MDV 20ML VIAL As Ordered ONE; -LIDOCAINE 2% MDV 20ML VIAL As Ordered ONE; -MIDAZOLAM INJ 2MG/2ML VIAL (J2250 PER 1MG) As Ordered ONE; -NS 1,000 ML IV SCH; -PROMETHAZINE INJ 25 MG/ML VIAL (J2550) As Ordered ONE; -diphenhydrAMINE 50MG/ML VIAL (J1200) As Ordered ONE; -fentaNYL 100 MCG/2 ML INJECTION As Ordered ONE
== END ==
LOC: M RAD 10:48
PROVIDERS: ATTEND Radiology Diagnostic Radiology
DX: I82.811 Embolism and thrombosis of superficial veins of right lower extremity (principal); M79.604 Pain in right leg

== ENCOUNTER 2021-09-30 10:44 | Emergency (ER) | payer OTHER ==
[~2021-09-30] VITALS: Ht 180.3 cm; Wt 140.9 kg
[2021-09-30] MEDS ORDERED: NS 1,000 ML IV SCH (14:05)
[2021-09-30 15:29] LABS: BASO # 0.1 10^3/uL (0.0-0.2); BASO % 0.8 % (0.0-1.0); EOS # 0.2 10^3/uL (0.0-0.5); EOS % 2.9 % (0.0-3.0); LYMPH # 0.9 10^3/uL (1.5-5.0); LYMPH % 10.6 % (24.0-44.0); MEAN CORPUSCULAR HEMOGLOBIN 27.7 pg (27.0-33.0); MEAN CORPUSCULAR VOLUME 89.2 fl (80.0-96.0); MONO # 0.7 10^3/uL (0.0-0.8); NEUTROPHILS # 6.1 10^3/uL (1.5-8.5); NEUTROPHILS % 75.9 % (36.0-66.0); PLATELET COUNT, AUTOMATED 160 10^3/uL (150-450); RED BLOOD COUNT 3.25 10^6/uL (4.30-6.10)
[2021-09-30 16:00] LABS: ALBUMIN 3.4 GM/DL (3.2-5.2); BILIRUBIN,DIRECT 0.4 MG/DL (0.0-0.2); BILIRUBIN,TOTAL 0.6 MG/DL (0.2-1.0); C REACTIVE PROTEIN QUANTITATIV 1.62 MG/DL (0.00-0.30); CALCIUM LEVEL 9.3 MG/DL (8.8-10.2); CREATININE FOR GFR 2.66 MG/DL (0.70-1.30); GLOMERULAR FILTRATION RATE 24.6 (>35); POTASSIUM SERUM 5.3 MEQ/L (3.5-5.1); TOTAL PROTEIN 6.8 GM/DL (6.4-8.2)
[2021-09-30 16:06] LABS: ERYTHROCYTE SEDIMENTATION RATE 61 mm/hr (0-20)
[2021-09-30] MEDS ORDERED: CLEO300C2 PO (17:03)
[2021-09-30] MEDS ORDERED: CLINDAMYCIN 150MG CAPSULE PO ONE (17:10)
[2021-09-30 17:44] VITALS: BP 132/59
== END 2021-09-30 18:02 | disposition home or self-care (01) ==
LOC: EDBD 10:44 → M ED 10:44
DX: L03.115 Cellulitis of right lower limb (principal); I87.2 Venous insufficiency (chronic) (peripheral); R21 Rash and other nonspecific skin eruption; R22.43 Localized swelling, mass and lump, lower limb, bilateral; E11.9 Type 2 diabetes mellitus without complications; I48.91 Unspecified atrial fibrillation; I11.0 Hypertensive heart disease with heart failure; I50.9 Heart failure, unspecified; N18.9 Chronic kidney disease, unspecified

== ENCOUNTER → 2022-04-18 | Outpatient (REF) | payer OTHER ==
[~2022-04-18] MED LIST changes: +CLEO300C2 PO; +LEVO1TAB38 PO; -LEVO250T3 PO
[2022-04-18 18:09] LABS: CREATININE, URINE 28.9 MG/DL
[2022-04-18 18:11] LABS: MAU/CREAT RATIO 48.4 MCG/MG (0.0-30.0)
== END ==
LOC: M LAB REF 17:11
PROVIDERS: ATTEND Internal Medicine Nephrology
DX: E11.22 Type 2 diabetes mellitus with diabetic chronic kidney disease (principal)

== ENCOUNTER → 2022-08-06 | Outpatient (CLI) | payer MEDICARE, OTHER | LOC: M RAD 12:04 | PROVIDERS: ATTEND Physician Assistant | DX: I87.311 Chronic venous hypertension (idiopathic) with ulcer of right lower extremity (principal); I70.201 Unspecified atherosclerosis of native arteries of extremities, right leg ==

== ENCOUNTER → 2022-12-17 | Outpatient (CLI) | payer OTHER | LOC: M RAD 09:36 | PROVIDERS: ATTEND Surgery | DX: I70.201 Unspecified atherosclerosis of native arteries of extremities, right leg (principal); L97.912 Non-pressure chronic ulcer of unspecified part of right lower leg with fat layer exposed; I70.213 Atherosclerosis of native arteries of extremities with intermittent claudication, bilateral legs ==

== ENCOUNTER → 2023-12-12 | Outpatient (REF) | payer OTHER ==
[~2023-12-12] MED LIST changes: +GLIP5TAB17 PO; -GLIP5TAB8 PO; +METO200T15 PO; -METO200T28 PO
[2023-12-12 18:09] LABS: PERCENT SATURATION 22.2 % (19.7-50.0)
== END ==
LOC: M LAB REF 17:00
PROVIDERS: ATTEND Internal Medicine Nephrology
DX: D50.9 Iron deficiency anemia, unspecified (principal)

== ENCOUNTER 2024-06-27 08:04 | Inpatient (IN) | payer OTHER ==
[~2024-06-27] VITALS: Ht 180.3 cm; Wt 121.6 kg
[~2024-06-27 08:04] MED LIST changes: +GLIP-318 PO; -GLIP5TAB20 PO
[2024-06-27] MEDS: PANTOPRAZOLE 40MG VIAL IV ONE (09:05)
[2024-06-27 09:08] LABS: VENOUS BASE EXCESS -5.3 (-2.0-2.0); VENOUS O2 SATURATION 60.8 % (60.0-80.0); VENOUS PARTIAL PRESSURE CO2 50.4 mmHg (38.0-50.0); VENOUS PARTIAL PRESSURE O2 36.6 mmHg (30.0-50.0); VENOUS PH 7.257 UNITS (7.330-7.430); VENOUS STANDARD HCO3 19.4 MMOL/L; VENOUS TOTAL CO2 23.5 MMOL/L (24.0-28.0)
[2024-06-27 09:10] LABS: BASO % 0.2 % (0.0-1.0); EOS % 0.1 % (0.0-3.0); HEMOGLOBIN 10.9 g/dl (13.5-17.5); LYMPH # 0.5 10^3/uL (1.5-5.0); LYMPH % 3.9 % (24.0-44.0); MEAN CORPUSCULAR HEMOGLOBIN 27.7 pg (27.0-33.0); MEAN CORPUSCULAR HGB CONC 32.1 g/dl (32.0-36.5); MEAN CORPUSCULAR VOLUME 86.5 fl (80.0-96.0); MONO # 0.7 10^3/uL (0.0-0.8); MONO % 5.6 % (2.0-8.0); NEUTROPHILS # 11.6 10^3/uL (1.5-8.5); PLATELET COUNT, AUTOMATED 180 10^3/uL (150-450); RED BLOOD COUNT 3.93 10^6/uL (4.30-6.10); WHITE BLOOD COUNT 13.1 10^3/uL (4.0-10.0)
[2024-06-27 09:22] LABS: INR 1.47; PARTIAL THROMBOPLASTIN TIME 33.7 SECONDS (24.8-34.2); PROTHROMBIN TIME 18.1 SECONDS (12.5-14.5)
[2024-06-27 09:41] LABS: ETHYL ALCOHOL (ETHANOL) < 0.003 % (0.000-0.010)
[2024-06-27 09:42] LABS: CPK CREATINE PHOSPHOKINASE 61 U/L (46-171)
[2024-06-27 09:43] LABS: ALBUMIN 2.7 G/DL (3.2-5.2); ALKALINE PHOSPHATASE 103 U/L (40-129); ALT/SGPT 227 U/L (7.0-40); AST/SGOT 186 U/L (<34); BILIRUBIN,DIRECT 0.2 MG/DL (<0.4); BILIRUBIN,TOTAL 0.5 MG/DL (0.3-1.2); BLOOD UREA NITROGEN 68 MG/DL (9-23); CALCIUM LEVEL 8.8 MG/DL (8.3-10.6); CARBON DIOXIDE LEVEL 22 MMOL/L (20-31); CHLORIDE LEVEL 95 MMOL/L (98-107); CK-MB VALUE MASS < 1.0 NG/ML (<3.6); CREATININE FOR GFR 2.58 MG/DL (0.70-1.30); GLOMERULAR FILTRATION RATE 25.3 (>35); GLUCOSE, FASTING 318 MG/DL (74-106); MB/CK RELATIVE INDEX 1.63 (< OR =4); POTASSIUM SERUM 3.5 MMOL/L (3.5-5.1); SALICYLATE LEVEL < 3.0 MG/DL (<30); SODIUM LEVEL 131 MMOL/L (136-145); TOTAL PROTEIN 6.7 G/DL (5.7-8.2)
[2024-06-27 09:48] LABS: OSMOLALITY SERUM 309 MOSM/KG (280-301)
[2024-06-27 10:14] LABS: ABG BASE EXCESS -5.3 (-2.0-2.0); ABG O2 SATURATION 92.6 % (95.0-99.0); ABG PARTIAL PRESSURE CO2 38.6 mmHg (35.0-45.0); ABG PARTIAL PRESSURE O2 72.3 mmHg (75.0-100.0); ABG TOTAL CO2 21.2 MMOL/L (23.0-31.0); ABG pH (ARTERIAL) 7.333 UNITS (7.350-7.450)
[2024-06-27 10:31] LABS: KETONE, URINE AUTO RFX NEGATIVE (NEGATIVE); LEUKOCYTE ESTERASE UR AUTO RFX NEGATIVE (NEGATIVE); MUCUS, URINE RFX SMALL (NEGATIVE); NITRITE, URINE AUTO RFX NEGATIVE (NEGATIVE); RBC, URINE AUTO RFX 0 /HPF (0-3); SQUAM EPITHELIAL CELL UR AURFX 0 /HPF (0-6); WBC, URINE AUTO RFX 0 /HPF (0-3)
[2024-06-27] MEDS: PIPERACILLIN/TAZOBACTAM SOD 4.5 GM in DEXTROSE 5% (D5W) ADV/MINI-BAG 50 ML IV ONE (10:56)
[2024-06-27] MEDS: BOOSTRIX VACCINE (TETANUS/DIPHTH/ACEL. PERTUSSIS) 0.5ML SYR IM.IMMUN ONE (10:57)
[2024-06-27 11:07] LABS: CK-MB VALUE MASS 1.4 NG/ML (<3.6)
[2024-06-27 11:08] LABS: MB/CK RELATIVE INDEX 2.33 (< OR =4)
[2024-06-27] MEDS: NS (Normal Saline) 0.9% 1,000 ML IV ONE (11:56)
[2024-06-27] MEDS: NS 500 ML IV ONE (12:00)
[2024-06-27] MEDS ORDERED: GLUCAGON INJ 1MG VIAL SC PRN (13:10)
[2024-06-27] MEDS ORDERED: GLUCOSE 4 GM CHEW PO PRN (13:10)
[2024-06-27] MEDS ORDERED: DEXTROSE 50% 50ML SYRINGE IV PRN (13:10)
[2024-06-27] MEDS: DOXYCYCLINE HYCLATE 100MG TABLET PO SCH (13:39)
[2024-06-27] MEDS ORDERED: HOME MED LIST COMPLETE! XX SCH (13:40)
[2024-06-27] MEDS ORDERED: CINA30TA4 PO (13:40)
[2024-06-27] MEDS ORDERED: CALC1CAP31 PO (13:40)
[2024-06-27] MEDS ORDERED: JARD1TAB PO (13:40)
[2024-06-27 13:46] LABS: THYROID STIMULATING HORMONE 2.624 uIU/ML (0.55-4.78)
[2024-06-27 13:47] LABS: FREE T4 1.31 NG/DL (0.89-1.76)
[2024-06-27 13:51] LABS: PROCALCITONIN 0.34 ng/ml
[2024-06-27 13:59] LABS: ALBUMIN 2.9 G/DL (3.2-5.2); BILIRUBIN,TOTAL 0.5 MG/DL (0.3-1.2); CALCIUM LEVEL 9.4 MG/DL (8.3-10.6); CREATININE FOR GFR 2.68 MG/DL (0.70-1.30); GLOMERULAR FILTRATION RATE 24.2 (>35); POTASSIUM SERUM 3.5 MMOL/L (3.5-5.1); TOTAL PROTEIN 7.5 G/DL (5.7-8.2)
[2024-06-27] MEDS ORDERED: PILL CUTTER 1 EACH XX PRN (14:15)
[2024-06-27 15:08] LABS: CREATININE,RANDOM URINE 34.4 MG/DL
[2024-06-27] MEDS: HALOPERIDOL LACTATE 5MG/ML VIAL IM ONE (16:06)
[2024-06-27] MEDS: cefTRIAXone SOD 1 GM in DEXTROSE 5% (D5W) ADV/MINI-BAG 50 ML IV SCH (16:08)
[2024-06-27] MEDS: NS (Normal Saline) 0.9% 1,000 ML IV SCH (16:11)
[2024-06-27] MEDS: INSULIN LISPRO (NovoLOG) PER UNIT SC SCH ×2 (17:54→21:00)
[2024-06-27] MEDS: FINASTERIDE 5MG TAB PO SCH (22:01)
[2024-06-27] MEDS: TAMSULOSIN 0.4 MG CAP PO SCH (22:01)
[2024-06-28] VITALS: BP 127/58; TEMP 96.9; O2SAT 97
[2024-06-28 03:26] VITALS: BP 124/58; TEMP 97.2; O2SAT 95
[2024-06-28 06:09] LABS: HEMATOCRIT 28.3 % (42.0-52.0); HEMOGLOBIN 9.3 g/dl (13.5-17.5); MEAN CORPUSCULAR HEMOGLOBIN 28.3 pg (27.0-33.0); MEAN CORPUSCULAR HGB CONC 32.9 g/dl (32.0-36.5); PLATELET COUNT, AUTOMATED 179 10^3/uL (150-450); RED BLOOD COUNT 3.29 10^6/uL (4.30-6.10); WHITE BLOOD COUNT 11.5 10^3/uL (4.0-10.0)
[2024-06-28 06:46] LABS: ALBUMIN 2.2 G/DL (3.2-5.2); BILIRUBIN,TOTAL 0.4 MG/DL (0.3-1.2); CALCIUM LEVEL 8.7 MG/DL (8.3-10.6); CREATININE FOR GFR 2.14 MG/DL (0.70-1.30); GLOMERULAR FILTRATION RATE 31.3 (>35); POTASSIUM SERUM 3.9 MMOL/L (3.5-5.1); TOTAL PROTEIN 5.6 G/DL (5.7-8.2)
[2024-06-28 08:46] VITALS: BP 117/59; TEMP 97.2; O2SAT 96
[2024-06-28] MEDS: CINACALCET 30 MG TAB (SENSIPAR) PO SCH (09:54)
[2024-06-28] MEDS: ATORVASTATIN 20 MG TAB PO SCH (09:54)
[2024-06-28] MEDS: ASPIRIN 81MG ENTERIC TABLET PO SCH (09:54)
[2024-06-28] MEDS: CALCITRIOL 0.25 MCG CAP (S0169) PO SCH (09:54)
[2024-06-28] MEDS: METOPROLOL SUCC (TopROL XL) 50MG **XL** TAB PO SCH (09:55)
[2024-06-28] MEDS: MORPHINE 2 MG/ML 1ML VIAL IV ONE ×2 (10:44→20:57)
[2024-06-28 12:11] VITALS: BP 137/65; TEMP 97.8; O2SAT 92
[2024-06-28] MEDS: LanTUS (INSULIN GLARGINE INJ) 1 UNITS/0.01 ML SC SCH (14:29)
[2024-06-28 16:12] VITALS: BP 99/46; TEMP 97.6; O2SAT 98
[2024-06-28 19:39] VITALS: BP 130/60; TEMP 97; O2SAT 97
[2024-06-28] MEDS: APIXABAN 2.5 MG TAB (ELIQUIS) PO SCH (20:56)
[2024-06-29] VITALS (7 sets, daily range): BP systolic 115–148; BP diastolic 54–67; TEMP 96.6–98; O2SAT 95–97
[2024-06-29] MEDS: zolPIDEM TARTRATE 5 MG TAB PO ONE (00:47)
[2024-06-29] MEDS: LanTUS (INSULIN GLARGINE INJ) 1 UNITS/0.01 ML SC SCH (08:31)
[2024-06-29 09:30] LABS: HEMOGLOBIN 9.8 g/dl (13.5-17.5); MEAN CORPUSCULAR HEMOGLOBIN 27.7 pg (27.0-33.0); MEAN CORPUSCULAR HGB CONC 31.6 g/dl (32.0-36.5); MEAN CORPUSCULAR VOLUME 87.6 fl (80.0-96.0); PLATELET COUNT, AUTOMATED 230 10^3/uL (150-450); RED BLOOD COUNT 3.54 10^6/uL (4.30-6.10); WHITE BLOOD COUNT 11.8 10^3/uL (4.0-10.0)
[2024-06-29 09:39] LABS: ALBUMIN 2.2 G/DL (3.2-5.2); BILIRUBIN,TOTAL 0.3 MG/DL (0.3-1.2); CALCIUM LEVEL 9.2 MG/DL (8.3-10.6); CREATININE FOR GFR 1.87 MG/DL (0.70-1.30); GLOMERULAR FILTRATION RATE 36.6 (>35)
[2024-06-29 10:38] LABS: PROCALCITONIN 0.52 ng/ml
[2024-06-29] MEDS: TORSEMIDE 20 MG TAB PO SCH (16:53)
[2024-06-29] MEDS: QUEtiapine FUMARATE 25 MG TAB PO SCH (21:01)
[2024-06-29] MEDS: traMADol 50 MG TAB PO PRN (21:21)
[2024-06-30] VITALS (7 sets, daily range): BP systolic 130–152; BP diastolic 57–88; TEMP 96.6–98.3; O2SAT 93–100
[2024-06-30 07:18] LABS: HEMATOCRIT 28.9 % (42.0-52.0); HEMOGLOBIN 9.1 g/dl (13.5-17.5); MEAN CORPUSCULAR HEMOGLOBIN 27.7 pg (27.0-33.0); MEAN CORPUSCULAR HGB CONC 31.5 g/dl (32.0-36.5); MEAN CORPUSCULAR VOLUME 87.8 fl (80.0-96.0); PLATELET COUNT, AUTOMATED 202 10^3/uL (150-450); RED BLOOD COUNT 3.29 10^6/uL (4.30-6.10); WHITE BLOOD COUNT 9.2 10^3/uL (4.0-10.0)
[2024-06-30 07:45] LABS: BILIRUBIN,TOTAL 0.4 MG/DL (0.3-1.2); CALCIUM LEVEL 8.9 MG/DL (8.3-10.6); CREATININE FOR GFR 1.93 MG/DL (0.70-1.30); GLOMERULAR FILTRATION RATE 35.3 (>35); POTASSIUM SERUM 4.3 MMOL/L (3.5-5.1); TOTAL PROTEIN 5.4 G/DL (5.7-8.2)
[2024-06-30] MEDS: LanTUS (INSULIN GLARGINE INJ) 1 UNITS/0.01 ML SC SCH (09:51)
[2024-06-30] MEDS: CEFDINIR 300 MG CAP (OMNICEF) PO SCH (14:36)
[2024-07-01 04:18] VITALS: BP 131/60; TEMP 98.1; O2SAT 94
[2024-07-01 05:51] LABS: HEMATOCRIT 31.3 % (42.0-52.0); MEAN CORPUSCULAR HEMOGLOBIN 27.8 pg (27.0-33.0); MEAN CORPUSCULAR HGB CONC 31.9 g/dl (32.0-36.5); MEAN CORPUSCULAR VOLUME 86.9 fl (80.0-96.0); PLATELET COUNT, AUTOMATED 225 10^3/uL (150-450); WHITE BLOOD COUNT 9.8 10^3/uL (4.0-10.0)
[2024-07-01 06:12] LABS: ALBUMIN 2.1 G/DL (3.2-5.2); BILIRUBIN,TOTAL 0.6 MG/DL (0.3-1.2); CALCIUM LEVEL 9.1 MG/DL (8.3-10.6); CREATININE FOR GFR 1.85 MG/DL (0.70-1.30); GLOMERULAR FILTRATION RATE 37.1 (>35); POTASSIUM SERUM 4.6 MMOL/L (3.5-5.1); TOTAL PROTEIN 5.7 G/DL (5.7-8.2)
[2024-07-01 07:31] VITALS: BP 126/59; TEMP 96.8; O2SAT 95
[2024-07-01 08:00] VITALS: BP 126/59; TEMP 96.8; O2SAT 95
[2024-07-01] MEDS: ALBUTEROL SULFATE 2.5MG/0.5ML INH NEB SOLN NEB PRN (09:14)
[2024-07-01 11:25] VITALS: BP 115/56; TEMP 97.2; O2SAT 96
[2024-07-01] MEDS: ACETAMINOPHEN *IV* 1,000 MG in IV 1 EA IV ONE (13:08)
[2024-07-01 19:50] VITALS: BP 156/67; TEMP 97.8; O2SAT 96
[2024-07-01 23:38] VITALS: BP 160/67; TEMP 96.9; O2SAT 97
[2024-07-02 01:00] VITALS: BP 143/55; TEMP 97; O2SAT 96
[2024-07-02 05:27] VITALS: BP 137/58; TEMP 97.2; O2SAT 95
[2024-07-02 05:35] LABS: HEMATOCRIT 30.2 % (42.0-52.0); HEMOGLOBIN 9.7 g/dl (13.5-17.5); MEAN CORPUSCULAR HEMOGLOBIN 27.9 pg (27.0-33.0); MEAN CORPUSCULAR HGB CONC 32.1 g/dl (32.0-36.5); MEAN CORPUSCULAR VOLUME 86.8 fl (80.0-96.0); PLATELET COUNT, AUTOMATED 220 10^3/uL (150-450); RED BLOOD COUNT 3.48 10^6/uL (4.30-6.10); WHITE BLOOD COUNT 11.5 10^3/uL (4.0-10.0)
[2024-07-02 05:53] LABS: BILIRUBIN,TOTAL 0.8 MG/DL (0.3-1.2); CALCIUM LEVEL 8.7 MG/DL (8.3-10.6); CREATININE FOR GFR 1.95 MG/DL (0.70-1.30); GLOMERULAR FILTRATION RATE 34.9 (>35); POTASSIUM SERUM 4.1 MMOL/L (3.5-5.1); TOTAL PROTEIN 5.3 G/DL (5.7-8.2)
[2024-07-03] MEDS ORDERED: DEXTROMETHORPHAN 60MG/10ML SUSP 90ML BTL(DELSYM) PO PRN (02:55)
[2024-07-03 03:22] VITALS: BP 110/52; TEMP 97; O2SAT 95
[2024-07-04 04:00] VITALS: BP 127/53; TEMP 97; O2SAT 98
[2024-07-05 04:10] VITALS: BP 120/51; TEMP 97; O2SAT 98
[2024-07-06 04:00] VITALS: BP 102/57; TEMP 97; O2SAT 100
[2024-07-07 03:40] VITALS: BP 108/55; TEMP 97; O2SAT 96
[2024-07-07] MEDS: BISACODYL 10MG SUPP PR ONE (20:41)
[2024-07-07] MEDS: MIRALAX *UNIT DOSE* 17GM PACKET PO SCH (20:44)
[2024-07-08] MEDS: FLEET ENEMA PR ONE (00:02)
[2024-07-08 03:32] VITALS: BP 121/67; TEMP 97.1; O2SAT 98
[2024-07-08 08:07] VITALS: BP 104/51
[2024-07-08] MEDS ORDERED: QUET1TAB17 PO (13:07)
== END 2024-07-08 16:26 | disposition home or self-care (01) | DRG 193 ==
LOC: M ED 08:04 → EDBD 08:04 → M ED INP 13:09 → M PCU 23:54 → M MSPAV 07-02 00:54
PROVIDERS: ADMIT Internal Medicine; ATTEND Student in an Organized Health Care Education/Training Program
DX: J18.9 Pneumonia, unspecified organism (principal); G93.41 Metabolic encephalopathy; I50.32 Chronic diastolic (congestive) heart failure; N18.4 Chronic kidney disease, stage 4 (severe); I13.0 Hypertensive heart and chronic kidney disease with heart failure and stage 1 through stage 4 chronic kidney disease, or unspecified chronic kidney disease; E87.1 Hypo-osmolality and hyponatremia; F05 Delirium due to known physiological condition; S61.210A Laceration without foreign body of right index finger without damage to nail, initial encounter; G47.33 Obstructive sleep apnea (adult) (pediatric); I48.91 Unspecified atrial fibrillation; F03.90 Unspecified dementia, unspecified severity, without behavioral disturbance, psychotic disturbance, mood disturbance, and anxiety; N40.0 Benign prostatic hyperplasia without lower urinary tract symptoms; E78.5 Hyperlipidemia, unspecified; I25.2 Old myocardial infarction; I25.10 Atherosclerotic heart disease of native coronary artery without angina pectoris; E11.22 Type 2 diabetes mellitus with diabetic chronic kidney disease; Z87.891 Personal history of nicotine dependence; M19.90 Unspecified osteoarthritis, unspecified site; R26.89 Other abnormalities of gait and mobility; W01.0XXA Fall on same level from slipping, tripping and stumbling without subsequent striking against object, initial encounter; Y92.9 Unspecified place or not applicable; T68.XXXA Hypothermia, initial encounter; R74.01 Elevation of levels of liver transaminase levels; Z79.01 Long term (current) use of anticoagulants; Z79.82 Long term (current) use of aspirin; Z79.84 Long term (current) use of oral hypoglycemic drugs; Z79.899 Other long term (current) drug therapy; Z86.73 Personal history of transient ischemic attack (TIA), and cerebral infarction without residual deficits; Z95.5 Presence of coronary angioplasty implant and graft

== ENCOUNTER 2024-08-03 05:22 | Inpatient (IN) | payer OTHER ==
[~2024-08-03] VITALS: Ht 177.8 cm; Wt 116.1 kg
[~2024-08-03 05:22] MED LIST changes: +CALC1CAP31 PO; +CINA30TA4 PO; -FLOM0.4C39 PO; +JARD1TAB PO; +QUET1TAB17 PO; +TAMS-18 PO
[2024-08-03 06:32] LABS: BASO % 0.3 % (0.0-1.0); EOS # 0.1 10^3/uL (0.0-0.5); HEMATOCRIT 28.7 % (42.0-52.0); HEMOGLOBIN 8.9 g/dl (13.5-17.5); LYMPH # 0.7 10^3/uL (1.5-5.0); LYMPH % 7.6 % (24.0-44.0); MEAN CORPUSCULAR VOLUME 90.3 fl (80.0-96.0); MONO # 0.7 10^3/uL (0.0-0.8); NEUTROPHILS # 7.5 10^3/uL (1.5-8.5); NEUTROPHILS % 82.2 % (36.0-66.0); PLATELET COUNT, AUTOMATED 122 10^3/uL (150-450); RED BLOOD COUNT 3.18 10^6/uL (4.30-6.10); WHITE BLOOD COUNT 9.2 10^3/uL (4.0-10.0)
[2024-08-03] MEDS: NS (Normal Saline) 0.9% 1,000 ML IV ONE ×4 (06:41→13:47)
[2024-08-03 06:59] LABS: CPK CREATINE PHOSPHOKINASE 76 U/L (46-171)
[2024-08-03 07:04] LABS: ALBUMIN 3.1 G/DL (3.2-5.2); ALKALINE PHOSPHATASE 59 U/L (40-129); ALT/SGPT 21 U/L (7.0-40); AST/SGOT 25 U/L (<34); BILIRUBIN,DIRECT 0.2 MG/DL (<0.4); BILIRUBIN,TOTAL 0.7 MG/DL (0.3-1.2); BLOOD UREA NITROGEN 48 MG/DL (9-23); CALCIUM LEVEL 7.3 MG/DL (8.3-10.6); CARBON DIOXIDE LEVEL 26 MMOL/L (20-31); CHLORIDE LEVEL 100 MMOL/L (98-107); CK-MB VALUE MASS < 1.0 NG/ML (<3.6); CREATININE FOR GFR 2.61 MG/DL (0.70-1.30); GLOMERULAR FILTRATION RATE 23.2 (>35); GLUCOSE, FASTING 88 MG/DL (74-106); MB/CK RELATIVE INDEX 1.31 (< OR =4); POTASSIUM SERUM 4.3 MMOL/L (3.5-5.1); SODIUM LEVEL 136 MMOL/L (136-145); THYROID STIMULATING HORMONE 4.116 uIU/ML (0.55-4.78)
[2024-08-03] MEDS ORDERED: D10W/0.45% SODIUM CHLORIDE 1,000 ML IV SCH (09:00)
[2024-08-03 09:17] LABS: HEMOGLOBIN A1c 5.6 % (4.0-6.0)
[2024-08-03] MEDS ORDERED: QUET1TAB17 PO (09:48)
[2024-08-03] MEDS ORDERED: HOME MED LIST COMPLETE! XX SCH (09:50)
[2024-08-03 10:13] LABS: KETONE, URINE AUTO RFX NEGATIVE (NEGATIVE); LEUKOCYTE ESTERASE UR AUTO RFX NEGATIVE (NEGATIVE); MUCUS, URINE RFX SMALL (NEGATIVE); NITRITE, URINE AUTO RFX NEGATIVE (NEGATIVE); RBC, URINE AUTO RFX 0 /HPF (0-3); SQUAM EPITHELIAL CELL UR AURFX 0 /HPF (0-6); WBC, URINE AUTO RFX 0 /HPF (0-3)
[2024-08-03 14:45] VITALS: BP 110/73; TEMP 97.2; O2SAT 95
[2024-08-03] MEDS: NS (Normal Saline) 0.9% 1,000 ML IV SCH (14:58)
[2024-08-03] MEDS: INSULIN LISPRO (NovoLOG) PER UNIT SC SCH ×2 (17:28→21:00)
[2024-08-03 20:08] VITALS: BP 92/44; TEMP 97; O2SAT 96
[2024-08-03 21:48] VITALS: BP 110/64; TEMP 97.7; O2SAT 98
[2024-08-03] MEDS: APIXABAN 2.5 MG TAB (ELIQUIS) PO SCH (21:53)
[2024-08-03] MEDS: TAMSULOSIN 0.4 MG CAP PO SCH (21:53)
[2024-08-03] MEDS: FINASTERIDE 5MG TAB PO SCH (21:53)
[2024-08-03] MEDS: QUEtiapine FUMARATE 25 MG TAB PO SCH (21:53)
[2024-08-04 04:21] VITALS: BP 113/58; TEMP 97; O2SAT 96
[2024-08-04 06:15] LABS: BASO # 0.1 10^3/uL (0.0-0.2); BASO % 0.7 % (0.0-1.0); EOS # 0.2 10^3/uL (0.0-0.5); HEMATOCRIT 26.3 % (42.0-52.0); HEMOGLOBIN 8.1 g/dl (13.5-17.5); LYMPH # 0.9 10^3/uL (1.5-5.0); LYMPH % 12.2 % (24.0-44.0); MEAN CORPUSCULAR HEMOGLOBIN 28.2 pg (27.0-33.0); MEAN CORPUSCULAR HGB CONC 30.8 g/dl (32.0-36.5); MEAN CORPUSCULAR VOLUME 91.6 fl (80.0-96.0); MONO # 0.9 10^3/uL (0.0-0.8); MONO % 12.3 % (2.0-8.0); NEUTROPHILS % 71.1 % (36.0-66.0); PLATELET COUNT, AUTOMATED 101 10^3/uL (150-450); RED BLOOD COUNT 2.87 10^6/uL (4.30-6.10)
[2024-08-04 06:30] LABS: CREATININE FOR GFR 2.31 MG/DL (0.70-1.30); GLOMERULAR FILTRATION RATE 26.8 (>35); POTASSIUM SERUM 4.5 MMOL/L (3.5-5.1)
[2024-08-04] MEDS: CINACALCET 30 MG TAB (SENSIPAR) PO SCH (08:47)
[2024-08-04] MEDS: ASPIRIN 81MG ENTERIC TABLET PO SCH (08:47)
[2024-08-04] MEDS: CALCITRIOL 0.25 MCG CAP (S0169) PO SCH (08:48)
[2024-08-04] MEDS: ATORVASTATIN 20 MG TAB PO SCH (08:48)
[2024-08-04 12:00] VITALS: BP 124/64; TEMP 97.2; O2SAT 99
[2024-08-04 21:08] VITALS: BP 135/58; TEMP 97.3; O2SAT 98
[2024-08-05 05:14] VITALS: BP 131/56; TEMP 97.4; O2SAT 94
[2024-08-05 06:25] LABS: BASO % 0.4 % (0.0-1.0); EOS # 0.2 10^3/uL (0.0-0.5); EOS % 2.2 % (0.0-3.0); HEMATOCRIT 29.6 % (42.0-52.0); HEMOGLOBIN 9.1 g/dl (13.5-17.5); LYMPH # 0.5 10^3/uL (1.5-5.0); LYMPH % 6.5 % (24.0-44.0); MEAN CORPUSCULAR HGB CONC 30.7 g/dl (32.0-36.5); MEAN CORPUSCULAR VOLUME 91.1 fl (80.0-96.0); MONO # 0.7 10^3/uL (0.0-0.8); MONO % 9.1 % (2.0-8.0); NEUTROPHILS # 6.6 10^3/uL (1.5-8.5); NEUTROPHILS % 81.4 % (36.0-66.0); PLATELET COUNT, AUTOMATED 109 10^3/uL (150-450); RED BLOOD COUNT 3.25 10^6/uL (4.30-6.10); WHITE BLOOD COUNT 8.1 10^3/uL (4.0-10.0)
[2024-08-05 06:56] LABS: CALCIUM LEVEL 7.2 MG/DL (8.3-10.6); CREATININE FOR GFR 1.9 MG/DL (0.70-1.30); GLOMERULAR FILTRATION RATE 33.9 (>35); POTASSIUM SERUM 4.8 MMOL/L (3.5-5.1)
[2024-08-05 12:45] VITALS: BP 132/59; TEMP 97.3; O2SAT 98
[2024-08-05 20:19] VITALS: BP_SYST 132; BP_DIAS 61; BP_DIAS 86; TEMP 97.7; O2SAT 98
[2024-08-06 04:37] VITALS: BP 138/62; TEMP 97; O2SAT 99
[2024-08-06 06:00] LABS: BASO % 0.7 % (0.0-1.0); EOS # 0.2 10^3/uL (0.0-0.5); EOS % 4.2 % (0.0-3.0); HEMATOCRIT 26.6 % (42.0-52.0); HEMOGLOBIN 8.2 g/dl (13.5-17.5); LYMPH # 0.7 10^3/uL (1.5-5.0); LYMPH % 12.4 % (24.0-44.0); MEAN CORPUSCULAR HEMOGLOBIN 27.8 pg (27.0-33.0); MEAN CORPUSCULAR HGB CONC 30.8 g/dl (32.0-36.5); MEAN CORPUSCULAR VOLUME 90.2 fl (80.0-96.0); MONO # 0.7 10^3/uL (0.0-0.8); MONO % 11.8 % (2.0-8.0); NEUTROPHILS % 70.4 % (36.0-66.0); PLATELET COUNT, AUTOMATED 106 10^3/uL (150-450); RED BLOOD COUNT 2.95 10^6/uL (4.30-6.10); WHITE BLOOD COUNT 5.7 10^3/uL (4.0-10.0)
[2024-08-06 06:26] LABS: CALCIUM LEVEL 7.6 MG/DL (8.3-10.6); CREATININE FOR GFR 1.81 MG/DL (0.70-1.30); POTASSIUM SERUM 4.7 MMOL/L (3.5-5.1)
[2024-08-06 08:00] VITALS: BP 138/62; TEMP 97.4; O2SAT 98
[2024-08-06 12:00] VITALS: BP 115/61; TEMP 97.2; O2SAT 98
[2024-08-06] MEDS: SPIRONOLACTONE 25 MG TAB PO SCH (16:39)
[2024-08-06] MEDS: CALCIUM GLUCONATE 1,000 MG in DEXTROSE 5% (D5W) MINI-BAG PLU 100 ML IV ONE (17:14)
[2024-08-06] MEDS: CALCIUM CARBONATE 500 MG CHEW U/D PO SCH (17:15)
[2024-08-06 19:53] VITALS: BP 146/63; TEMP 97.2; O2SAT 97
[2024-08-07 04:42] VITALS: BP 101/62; TEMP 97.3; O2SAT 98
[2024-08-07 06:39] LABS: BASO % 0.5 % (0.0-1.0); EOS # 0.2 10^3/uL (0.0-0.5); EOS % 3.6 % (0.0-3.0); HEMATOCRIT 27.6 % (42.0-52.0); HEMOGLOBIN 8.5 g/dl (13.5-17.5); LYMPH # 0.8 10^3/uL (1.5-5.0); LYMPH % 13.2 % (24.0-44.0); MEAN CORPUSCULAR HEMOGLOBIN 28.3 pg (27.0-33.0); MEAN CORPUSCULAR HGB CONC 30.8 g/dl (32.0-36.5); MONO # 0.7 10^3/uL (0.0-0.8); MONO % 12.1 % (2.0-8.0); NEUTROPHILS # 4.1 10^3/uL (1.5-8.5); NEUTROPHILS % 70.1 % (36.0-66.0); PLATELET COUNT, AUTOMATED 112 10^3/uL (150-450); WHITE BLOOD COUNT 5.9 10^3/uL (4.0-10.0)
[2024-08-07 07:09] LABS: CALCIUM LEVEL 7.5 MG/DL (8.3-10.6); CREATININE FOR GFR 1.7 MG/DL (0.70-1.30); GLOMERULAR FILTRATION RATE 38.8 (>35); POTASSIUM SERUM 4.7 MMOL/L (3.5-5.1)
[2024-08-07 12:00] VITALS: BP 140/66; TEMP 97
[2024-08-07] MEDS: TORSEMIDE 20 MG TAB PO SCH (17:52)
[2024-08-08 04:00] VITALS: BP 144/72; TEMP 97; O2SAT 99
[2024-08-08 06:37] LABS: BASO % 0.5 % (0.0-1.0); EOS # 0.2 10^3/uL (0.0-0.5); EOS % 4.2 % (0.0-3.0); HEMATOCRIT 28.4 % (42.0-52.0); HEMOGLOBIN 8.8 g/dl (13.5-17.5); LYMPH # 0.7 10^3/uL (1.5-5.0); MEAN CORPUSCULAR HEMOGLOBIN 28.2 pg (27.0-33.0); MONO # 0.6 10^3/uL (0.0-0.8); MONO % 11.2 % (2.0-8.0); PLATELET COUNT, AUTOMATED 129 10^3/uL (150-450); RED BLOOD COUNT 3.12 10^6/uL (4.30-6.10); WHITE BLOOD COUNT 5.7 10^3/uL (4.0-10.0)
[2024-08-08 07:06] LABS: CALCIUM LEVEL 8.3 MG/DL (8.3-10.6); CREATININE FOR GFR 1.77 MG/DL (0.70-1.30); GLOMERULAR FILTRATION RATE 36.9 (>35); POTASSIUM SERUM 4.7 MMOL/L (3.5-5.1)
[2024-08-09 04:00] VITALS: BP 151/72; TEMP 97.3; O2SAT 96
[2024-08-09 06:08] LABS: BASO # 0.1 10^3/uL (0.0-0.2); EOS # 0.2 10^3/uL (0.0-0.5); EOS % 3.8 % (0.0-3.0); HEMATOCRIT 29.2 % (42.0-52.0); LYMPH # 0.7 10^3/uL (1.5-5.0); LYMPH % 13.8 % (24.0-44.0); MEAN CORPUSCULAR HEMOGLOBIN 27.9 pg (27.0-33.0); MEAN CORPUSCULAR HGB CONC 30.8 g/dl (32.0-36.5); MEAN CORPUSCULAR VOLUME 90.4 fl (80.0-96.0); MONO # 0.6 10^3/uL (0.0-0.8); MONO % 12.1 % (2.0-8.0); NEUTROPHILS # 3.6 10^3/uL (1.5-8.5); NEUTROPHILS % 68.7 % (36.0-66.0); PLATELET COUNT, AUTOMATED 133 10^3/uL (150-450); RED BLOOD COUNT 3.23 10^6/uL (4.30-6.10); WHITE BLOOD COUNT 5.2 10^3/uL (4.0-10.0)
[2024-08-09 06:34] LABS: CALCIUM LEVEL 8.7 MG/DL (8.3-10.6); CREATININE FOR GFR 1.87 MG/DL (0.70-1.30); GLOMERULAR FILTRATION RATE 34.6 (>35); POTASSIUM SERUM 4.7 MMOL/L (3.5-5.1)
[2024-08-09] MEDS: METOPROLOL SUCC *XL* 25MG TAB (TopROL *XL*) PO ONE (18:51)
[2024-08-09 20:26] VITALS: BP 153/70; TEMP 97.3; O2SAT 97
[2024-08-10 04:39] VITALS: BP 127/53; TEMP 97.9; O2SAT 95
[2024-08-10 04:41] VITALS: BP 127/53
[2024-08-10 06:43] LABS: BASO # 0.1 10^3/uL (0.0-0.2); BASO % 0.8 % (0.0-1.0); EOS # 0.2 10^3/uL (0.0-0.5); HEMATOCRIT 28.7 % (42.0-52.0); HEMOGLOBIN 9.1 g/dl (13.5-17.5); LYMPH # 0.8 10^3/uL (1.5-5.0); LYMPH % 13.9 % (24.0-44.0); MEAN CORPUSCULAR HEMOGLOBIN 28.3 pg (27.0-33.0); MEAN CORPUSCULAR HGB CONC 31.7 g/dl (32.0-36.5); MEAN CORPUSCULAR VOLUME 89.1 fl (80.0-96.0); MONO # 0.7 10^3/uL (0.0-0.8); MONO % 11.8 % (2.0-8.0); NEUTROPHILS # 4.1 10^3/uL (1.5-8.5); PLATELET COUNT, AUTOMATED 137 10^3/uL (150-450); RED BLOOD COUNT 3.22 10^6/uL (4.30-6.10)
[2024-08-10 07:19] LABS: CALCIUM LEVEL 8.7 MG/DL (8.3-10.6); CREATININE FOR GFR 1.78 MG/DL (0.70-1.30); GLOMERULAR FILTRATION RATE 36.7 (>35); POTASSIUM SERUM 4.6 MMOL/L (3.5-5.1)
[2024-08-10 08:14] VITALS: BP 118/57
[2024-08-10] MEDS: METOPROLOL SUCC *XL* 25MG TAB (TopROL *XL*) PO SCH (08:20)
[2024-08-10] MEDS ORDERED: MIRALAX *UNIT DOSE* 17GM PACKET PO PRN (15:55)
[2024-08-10] MEDS ORDERED: BISACODYL 10MG SUPP PR PRN (15:55)
[2024-08-10] MEDS: SENOKOT S TAB PO SCH (20:08)
[2024-08-12 05:08] VITALS: BP 119/74; TEMP 97.5; O2SAT 96
[2024-08-12 08:14] VITALS: BP 159/77
[2024-08-12] MEDS ORDERED: SPIR-10 PO (14:33)
[2024-08-12] MEDS ORDERED: TORS20TA2 PO (14:33)
== END 2024-08-12 15:45 | disposition home health service (06) | DRG 637 ==
LOC: M ED 05:22 → EDBD 05:22 → M ED INP 08:16 → M MS5PR 14:45
PROVIDERS: ADMIT General Practice; ATTEND Internal Medicine Nephrology
PROC: B246ZZZ Ultrasonography of Right and Left Heart (ICD-10-PCS; principal; 2024-08-03)
DX: E11.649 Type 2 diabetes mellitus with hypoglycemia without coma (principal); G93.41 Metabolic encephalopathy; I50.32 Chronic diastolic (congestive) heart failure; I13.0 Hypertensive heart and chronic kidney disease with heart failure and stage 1 through stage 4 chronic kidney disease, or unspecified chronic kidney disease; R29.6 Repeated falls; N17.9 Acute kidney failure, unspecified; N18.4 Chronic kidney disease, stage 4 (severe); G47.33 Obstructive sleep apnea (adult) (pediatric); I48.91 Unspecified atrial fibrillation; N40.0 Benign prostatic hyperplasia without lower urinary tract symptoms; E78.5 Hyperlipidemia, unspecified; I27.20 Pulmonary hypertension, unspecified; E66.9 Obesity, unspecified; E83.51 Hypocalcemia; I25.10 Atherosclerotic heart disease of native coronary artery without angina pectoris; I25.2 Old myocardial infarction; E11.22 Type 2 diabetes mellitus with diabetic chronic kidney disease; M19.90 Unspecified osteoarthritis, unspecified site; G89.29 Other chronic pain; R26.89 Other abnormalities of gait and mobility; D63.1 Anemia in chronic kidney disease; F03.90 Unspecified dementia, unspecified severity, without behavioral disturbance, psychotic disturbance, mood disturbance, and anxiety; D50.9 Iron deficiency anemia, unspecified; Z79.01 Long term (current) use of anticoagulants; Z79.82 Long term (current) use of aspirin; Z79.84 Long term (current) use of oral hypoglycemic drugs; Z79.899 Other long term (current) drug therapy; Z95.5 Presence of coronary angioplasty implant and graft; Z87.891 Personal history of nicotine dependence; Z86.73 Personal history of transient ischemic attack (TIA), and cerebral infarction without residual deficits; W19.XXXA Unspecified fall, initial encounter; Y92.008 Other place in unspecified non-institutional (private) residence as the place of occurrence of the external cause; Z68.35 Body mass index [BMI] 35.0-35.9, adult

== ENCOUNTER 2024-10-30 11:57 | Inpatient (IN) | payer OTHER ==
[~2024-10-30] VITALS: Ht 180.3 cm; Wt 110.0 kg
[~2024-10-30 11:57] MED LIST changes: +LISI40TA10 PO; -LISI40TA4 PO
[2024-10-30 12:39] LABS: BASO # 0.1 10^3/uL (0.0-0.2); BASO % 0.8 % (0.0-1.0); EOS # 0.2 10^3/uL (0.0-0.5); EOS % 3.5 % (0.0-3.0); LYMPH # 1.0 10^3/uL (1.5-5.0); LYMPH % 16.9 % (24.0-44.0); MONO # 0.7 10^3/uL (0.0-0.8); MONO % 12.0 % (2.0-8.0); NEUTROPHILS # 3.9 10^3/uL (1.5-8.5); NEUTROPHILS % 66.1 % (36.0-66.0); PLATELET COUNT, AUTOMATED 108 10^3/uL (150-450)
[2024-10-30 12:57] LABS: ETHYL ALCOHOL (ETHANOL) < 0.003 % (0.000-0.010)
[2024-10-30 12:58] LABS: CALCIUM LEVEL 7.8 MG/DL (8.3-10.6); CARBON DIOXIDE LEVEL 26 MMOL/L (20-31); CHLORIDE LEVEL 96 MMOL/L (98-107); CK-MB VALUE MASS 1.1 NG/ML (<3.6); CREATININE FOR GFR 2.39 MG/DL (0.70-1.30); GLOMERULAR FILTRATION RATE 25.8 (>35); MAGNESIUM LEVEL 1.8 MG/DL (1.8-2.4); POTASSIUM SERUM 4.2 MMOL/L (3.5-5.1); SODIUM LEVEL 134 MMOL/L (136-145)
[2024-10-30 12:59] LABS: CPK CREATINE PHOSPHOKINASE 33 U/L (46-171); MB/CK RELATIVE INDEX 3.33 (< OR =4)
[2024-10-30 13:01] LABS: FREE T4 1.15 NG/DL (0.89-1.76)
[2024-10-30 13:07] LABS: INR 1.17
[2024-10-30] MEDS: NS (Normal Saline) 0.9% 1,000 ML IV SCH ×2 (13:30→16:55)
[2024-10-30] MEDS: NS 500 ML IV ONE (13:30)
[2024-10-30] MEDS: LIDOCAINE W/EPINEPHrine 1% 20 ML VIAL SC ONE (14:05)
[2024-10-30] MEDS ORDERED: GLUCAGON INJ 1 MG VIAL SC PRN (17:00)
[2024-10-30] MEDS ORDERED: DEXTROSE 50% 50 ML SYRINGE IV PRN (17:00)
[2024-10-30] MEDS ORDERED: GLUCOSE 4 GM CHEW PO PRN (17:00)
[2024-10-30 17:23] VITALS: BP 154/66; TEMP 97.2; O2SAT 96
[2024-10-30 17:42] LABS: AMPHETAMINES LEVEL URINE NEGATIVE (NEGATIVE); BARBITURATES URINE NEGATIVE (NEGATIVE); BENZODIAZEPINES URINE NEGATIVE (NEGATIVE); CANNABINOIDS URINE NEGATIVE (NEGATIVE); COCAINE METABOLITE URINE NEGATIVE (NEGATIVE); METHADONE URINE NEGATIVE (NEGATIVE); OPIATES URINE NEGATIVE (NEGATIVE); PHENCYCLIDINE URINE NEGATIVE (NEGATIVE)
[2024-10-30 17:45] LABS: INR 1.09
[2024-10-30 17:54] LABS: ALT/SGPT 14.0 U/L (7.0-40); AST/SGOT 22.0 U/L (<34)
[2024-10-30] MEDS: INSULIN LISPRO (NovoLOG) PER UNIT SC SCH ×2 (18:08→21:00)
[2024-10-30] MEDS ORDERED: DOCU100C17 PO (18:14)
[2024-10-30] MEDS ORDERED: ACET-683 PO (18:14)
[2024-10-30] MEDS ORDERED: HOME MED LIST COMPLETE! XX SCH (18:15)
[2024-10-30 20:00] VITALS: BP 145/58; TEMP 97.3; O2SAT 97
[2024-10-30 20:30] VITALS: O2SAT 85
[2024-10-30 20:32] VITALS: O2SAT 98
[2024-10-30] MEDS ORDERED: FERROUS GLUCONATE 324 MG TAB PO SCH (21:00)
[2024-10-30] MEDS: TAMSULOSIN 0.4 MG CAP PO SCH (22:16)
[2024-10-30] MEDS: FINASTERIDE 5 MG TAB PO SCH (22:17)
[2024-10-30] MEDS: FERROUS GLUCONATE 324 MG TAB PO SCH (22:18)
[2024-10-30 23:58] VITALS: BP 120/50; TEMP 97.3; O2SAT 100
[2024-10-31] VITALS (7 sets, daily range): BP systolic 92–148; BP diastolic 46–78; TEMP 97–97.8; O2SAT 92–100
[2024-10-31] MEDS: ACETAMINOPHEN 325 MG TAB PO PRN (05:35)
[2024-10-31 05:49] LABS: PLATELET COUNT, AUTOMATED 104 10^3/uL (150-450)
[2024-10-31 06:13] LABS: ALT/SGPT 10.0 U/L (7.0-40); AST/SGOT 17.0 U/L (<34); CALCIUM LEVEL 7.8 MG/DL (8.3-10.6); CARBON DIOXIDE LEVEL 26.0 MMOL/L (20-31); CHLORIDE LEVEL 101.0 MMOL/L (98-107); CREATININE FOR GFR 2.08 MG/DL (0.70-1.30); GLOMERULAR FILTRATION RATE 30.4 (>35); POTASSIUM SERUM 4.1 MMOL/L (3.5-5.1); SODIUM LEVEL 138.0 MMOL/L (136-145)
[2024-10-31] MEDS: ATORVASTATIN 20 MG TAB PO SCH (08:03)
[2024-10-31] MEDS: CINACALCET 30 MG TAB PO SCH (08:03)
[2024-10-31] MEDS: CALCITRIOL 0.25 MCG CAP (S0169) PO SCH (08:03)
[2024-10-31] MEDS: DOCUSATE SODIUM 100 MG CAPSULE PO SCH (08:03)
[2024-11-01 04:06] VITALS: BP 140/54; TEMP 97.2; O2SAT 97
[2024-11-01 05:25] VITALS: BP 118/72; TEMP 97.3; O2SAT 97
[2024-11-01 06:29] LABS: PLATELET COUNT, AUTOMATED 106 10^3/uL (150-450)
[2024-11-01 06:55] LABS: ALT/SGPT 10.0 U/L (7.0-40); AST/SGOT 18.0 U/L (<34); CALCIUM LEVEL 8.1 MG/DL (8.3-10.6); CARBON DIOXIDE LEVEL 26.0 MMOL/L (20-31); CHLORIDE LEVEL 105.0 MMOL/L (98-107); CREATININE FOR GFR 1.83 MG/DL (0.70-1.30); GLOMERULAR FILTRATION RATE 35.5 (>35); POTASSIUM SERUM 4.6 MMOL/L (3.5-5.1); SODIUM LEVEL 141.0 MMOL/L (136-145)
[2024-11-01 12:00] VITALS: BP 148/75; TEMP 97.5; O2SAT 98
[2024-11-01 20:49] VITALS: BP 154/68; TEMP 97.2; O2SAT 94
[2024-11-02 04:36] VITALS: BP 133/52; TEMP 97.2; O2SAT 93
[2024-11-02 06:38] LABS: PLATELET COUNT, AUTOMATED 109 10^3/uL (150-450)
[2024-11-02 07:35] LABS: ALT/SGPT 11.0 U/L (7.0-40); AST/SGOT 17.0 U/L (<34); CALCIUM LEVEL 7.9 MG/DL (8.3-10.6); CARBON DIOXIDE LEVEL 25.0 MMOL/L (20-31); CHLORIDE LEVEL 107.0 MMOL/L (98-107); CREATININE FOR GFR 1.52 MG/DL (0.70-1.30); GLOMERULAR FILTRATION RATE 44.4 (>35); POTASSIUM SERUM 4.6 MMOL/L (3.5-5.1); SODIUM LEVEL 143.0 MMOL/L (136-145)
[2024-11-02 11:40] VITALS: BP 131/52; TEMP 97.2; O2SAT 97
[2024-11-02 19:25] VITALS: BP 126/70; TEMP 97.2; O2SAT 97
[2024-11-02] MEDS: APIXABAN 2.5 MG TAB PO SCH (21:17)
[2024-11-03 03:46] VITALS: BP 131/68; TEMP 97.7; O2SAT 95
[2024-11-03 07:39] VITALS: BP 139/64; TEMP 97.8; O2SAT 96
[2024-11-03 20:18] VITALS: BP 142/72; TEMP 98; O2SAT 95
[2024-11-04 03:36] VITALS: BP 165/69; TEMP 97.3; O2SAT 97
[2024-11-04] MEDS ORDERED: BACI50OI TOP (11:27)
== END 2024-11-04 13:36 | DRG 683 ==
LOC: M ED 11:57 → M ED INP 16:25 → M MS5PR 17:25 → M PCU 10-31 04:59 → M MSPAV 10-31 21:46
PROVIDERS: ADMIT Internal Medicine; ATTEND Student in an Organized Health Care Education/Training Program
PROC: 0HQ3XZZ Repair Left Ear Skin, External Approach (ICD-10-PCS; principal; 2024-10-30)
PROC: 0HQ1XZZ Repair Face Skin, External Approach (ICD-10-PCS; 2024-10-30)
DX: N17.9 Acute kidney failure, unspecified (principal); I50.32 Chronic diastolic (congestive) heart failure; I13.0 Hypertensive heart and chronic kidney disease with heart failure and stage 1 through stage 4 chronic kidney disease, or unspecified chronic kidney disease; I48.91 Unspecified atrial fibrillation; N18.4 Chronic kidney disease, stage 4 (severe); R29.6 Repeated falls; R26.89 Other abnormalities of gait and mobility; F03.90 Unspecified dementia, unspecified severity, without behavioral disturbance, psychotic disturbance, mood disturbance, and anxiety; G47.33 Obstructive sleep apnea (adult) (pediatric); N40.0 Benign prostatic hyperplasia without lower urinary tract symptoms; E78.5 Hyperlipidemia, unspecified; I25.10 Atherosclerotic heart disease of native coronary artery without angina pectoris; I25.2 Old myocardial infarction; E11.22 Type 2 diabetes mellitus with diabetic chronic kidney disease; M19.90 Unspecified osteoarthritis, unspecified site; D63.8 Anemia in other chronic diseases classified elsewhere; S01.112A Laceration without foreign body of left eyelid and periocular area, initial encounter; S01.312A Laceration without foreign body of left ear, initial encounter; W19.XXXA Unspecified fall, initial encounter; Y92.9 Unspecified place or not applicable; Z95.5 Presence of coronary angioplasty implant and graft; Z87.891 Personal history of nicotine dependence; Z86.73 Personal history of transient ischemic attack (TIA), and cerebral infarction without residual deficits; Z79.01 Long term (current) use of anticoagulants; Z79.82 Long term (current) use of aspirin; Z79.899 Other long term (current) drug therapy